=== PATIENT | male | born 1980 | race Caucasian/White ===

== ENCOUNTER 2020-05-13 18:08 | Emergency (ER) | payer MEDICAID, SELFPAY ==
--- NOTE | ~2020-05-13 | CT_ITS ---
EXAMINATION: CT pelvis w con EXAM DATE: 05/13/2020 20:49 INDICATION: Abscess right upper buttock. Mass. TECHNIQUE: Spiral CT pelvis w con was performed following intravenous injection of 100 mL Omnipaque 3 50. Axial, coronal and sagittal images were reviewed. The dose-length product (DLP) for this examin ation was 251.04 mGy-cm. The exposure was tailored according to patient size (auto mA exposure contr ol), and iterative reconstruction (ASIR) was used as additional dose reduction technique. There is n o prior study for comparison. FINDINGS: In the right buttock subcutaneous fat there is masslike region measuring 4 x 6 cm, 40 Houns field units which could be either proteinaceous fluid or solid. If patient has infection clinically, consider bedside aspiration (this should not need any specific imaging guidance). If not, recommend u ltrasound to distinguish solid from cystic and determine whether biopsy is indicated. Visualized bowel is unremarkable. Prostate and bladder are unremarkable. No pelvic lymphadenopathy. IMPRESSION: Right posterior buttock subcutaneous mass like region, could be proteinaceous fluid or s olid. Reviewed, dictated and finalized at location A. IMPRESSION: Right posterior buttock subcutaneous mass like region, could be pr oteinaceous fluid or solid.
[2020-05-13 18:10] VITALS: BP 155/123; PULSE 102; RESP 18; TEMP 36.4; O2SAT 100
--- NOTE | 2020-05-13 19:03 | ED.SKABFB ---
HPI - Skin/Abscess/Foreign Bdy General Chief complaint: Skin/Abscess/Foreign Body Stated complaint: wound Time Seen by Provider: 05/13/20 19:03 History of Present Illness HPI narrative: Right gluteal mass for more than 1 year. Started as a small bump. He attempted to drain it, but did not get anything out. Since that time it has increased in size and has a chronic wound overlying the top. It is only mildy painful. No fever, chills, nausea, vomiting. Related Data Home Medications Medication Instructions Recorded Confirmed ibuprofen [Advil] 400 mg PO Q6H PRN 05/18/20 05/20/20 Allergies Allergy/AdvReac Type Severity Reaction Status Date / Time codeine Allergy Intermediate Swelling Verified 05/18/20 18:06 Review of Systems Review of Systems: All systems reviewed & are unremarkable except as noted in HPI and below Constitutional: Constitutional: Denies chills, Denies fever(s) and Denies weakness Cardiovascular: Cardiovascular: Denies chest pain Respiratory: Respiratory: Denies dyspnea Gastrointestinal: Gastrointestinal: Denies abdominal pain, Denies nausea and Denies vomiting Genitourinary: Genitourinary: Reports no additional male genitourinary complaints Musculoskeletal: Musculoskeletal: Denies back pain Neurologic: Reports system reviewed and no additional complaints, except as documented [facility] Surgical History Surgical History History of forearm fracture with repair an reconstruction Family History Family History Father No problems noted. Mother CKD (chronic kidney disease) Grandparent Diabetes mellitus Heart disease Hypertension Cerebrovascular accident Social History Social History Smoking packs per day: 1 Smoking cigarettes per day: 20.0 Years smoked: 15 Smoking pack-years: 15.00 Smoking status: Current every day smoker Tobacco type: cigarettes Second hand tobacco smoke exposure: Yes Alcohol intake: former Drinks per week: 42 (patient states 3 tall boys per day ) Substance use: current Substance use type: marijuana Other substance usage details: daily marijuana smoker 3 joints a day Spiritual care concerns: No Exam Const: General: healthy appearing, no acute distress and alert Orientation/consciousness: patient oriented x3 HENMT: Head: normal to inspection Neck: Neck: normal visual inspection Chest: Chest palpation & inspection: no tenderness Resp: Effort & Inspection: normal respiratory effort Auscultation: clear to auscultation bilaterally, no rales, no rhonchi and no wheezes Cardio: Jugular venous distension: no JVD Rate: regular rate Rhythm: regular rhythm Heart sounds: no murmurs GI: GI Palp: Yes Soft to palpation and No Tenderness to palpation present (GI) Skin: Other: 6 cm nearly half spherical mass on superior portion of right buttock. firm chronic appearing wound over the top with abnormal appearance particularly at the borders. The mass feels fluctuant around the edges. Neuro: General: patient oriented x3 and moves all extremities Speech: normal speech Extrem: General: no edema Psych: Appearance: well kempt Affect: normal affect Course Vital Signs Vital signs: Vital Signs Temperature 36.4 C 05/13/20 18:10 Pulse Rate 102 H 05/13/20 18:10 Respiratory Rate 18 05/13/20 18:10 Blood Pressure 155/123 H 05/13/20 18:10 Pulse Oximetry 100 05/13/20 18:10 Temperature 37.2 C 05/14/20 00:05 Pulse Rate 83 05/14/20 00:05 Respiratory Rate 24 H 05/14/20 00:05 Blood Pressure 109/67 05/14/20 00:05 Pulse Oximetry 100 05/14/20 00:05 MDM - Skin/Abscess/Foreign Bdy MDM Narrative Medical decision making narrative: CT indeterminate. Case discussed with Dr. Charles. He did not think that it would do any harm to attempt I&D. It was incised
[2020-05-13 20:11] LABS: Basophils Absolute Auto 0.1 K/mm3 (0.0-0.1); Basophils Percent Auto 0.7 % (0.2-1.2); Eosinophils Absolute Auto 0.1 K/mm3 (0-0.3); Eosinophils Percent Auto 0.8 % (0-4.4); Hematocrit 47.6 % (42.0-52.0); Hemoglobin 16.4 g/dL (14.0-18.0); Immature Granulocyte Absolute 0.04 K/mm3 (0.00-0.031); Immature Granulocyte Percent A 0.6 % (0-0.5); Lymphocytes Absolute Auto 1.55 K/mm3 (0.9-3.2); Lymphocytes Percent Auto 21.7 % (18.3-44.2); Mean Corpuscular HGB Conc 34.5 g/dl (32-36); Mean Corpuscular Hemoglobin 32.3 pg (26-34); Mean Corpuscular Volume 93.9 fl (80-100); Mean Platelet Volume 9.9 fl (7.4-10.4); Monocytes Absolute Auto 0.9 K/mm3 (0.1-0.6); Neutrophils Absolute Auto 4.6 K/mm3 (1.3-6.7); Neutrophils Percent Auto 64.2 % (45.5-73.1); Platelet Count Result 233 k/mm3 (150-375); Red Blood Count 5.07 M/mm3 (4.6-6.20); Red Cell Distribution Width 13.2 % (11.5-14.5); White Blood Count 7.2 K/mm3 (4.5-10.0)
[2020-05-13 20:29] LABS: Anion Gap 6 mmol/L (8-16); Blood Urea Nitrogen 13 mg/dL (9-20); Calcium 8.9 mg/dL (8.4-10.2); Carbon Dioxide 29 mmol/L (22-30); Chloride 103 mmol/L (98-107); Estimated CRCL calculation 88 ml/min; Estimated Glomerular Filt Rate > 60; Glucose 106 mg/dL (75-110); Potassium 4.3 mmol/L (3.4-5.0); Sodium 138 mmol/L (137-145)
[2020-05-13 22:03] VITALS: BP 112/69; PULSE 91; RESP 17; O2SAT 98
[2020-05-14 00:05] VITALS: BP 109/67; PULSE 83; RESP 24; TEMP 37.2; O2SAT 100
== END 2020-05-14 00:07 | disposition home or self-care (01) ==
PROVIDERS: Emergency Provider Emergency Medicine
DX: R22.2 Localized swelling, mass and lump, trunk (principal); F17.210 Nicotine dependence, cigarettes, uncomplicated
CPT/HCPCS: 10060; 36415; 72193; 80048; 85025; 99284; Q9967

== ENCOUNTER → 2020-05-19 00:07 | Outpatient (CLI) | payer MEDICAID, SELFPAY ==
[2020-05-19 18:31] LABS: SARS-CoV-2 RNA PCR Negative
== END ==
PROVIDERS: Visit Provider Surgery
DX: Z01.812 Encounter for preprocedural laboratory examination (principal); Z20.822 Contact with and (suspected) exposure to COVID-19
CPT/HCPCS: C9803; U0003; U0005

== ENCOUNTER 2020-05-21 02:11 | Day surgery (SDC) | payer MEDICAID, SELFPAY ==
[2020-05-18 18:14] VITALS: BMI 25.5
[2020-05-21 08:43] VITALS: BP 131/86; PULSE 112; RESP 18; TEMP 36.5; O2SAT 97
[2020-05-21] MEDS: LACTATED RINGERS 1,000 ML 30 ML IV CONT (08:57)
--- NOTE | 2020-05-21 09:04 | WPDANESEPPF ---
Anes - Initial Pre Proc Eval Procedure: Operation Date: 05/21/20 10:30 Proposed Procedures p Incisional Biopsy Of Right Buttock Mass - Ilan Charles MD Date/Time: 05/21/20 09:04 Surgeon: Ilan Charles MD Pre Op Diagnosis: Right Buttock Mass Patient Data Age: 39 Gender: M Height: 5 ft 9 in Weight: 78.47 kg Allergies Allergy/AdvReac Type Severity Reaction Status Date / Time codeine Allergy Intermediate Swelling Verified 05/18/20 18:06 Home Medications Medication Instructions Recorded Confirmed Type ibuprofen [Advil] 400 mg PO Q6H PRN 05/18/20 05/20/20 History Patient hx anesthesia problems: none Family hx anesthesia problems: none PMFSH Past Medical History Medical History Polysubstance (excluding opioids) dependence Surgical History Surgical History History of forearm fracture with repair an reconstruction Family History Family History Father No problems noted. Mother CKD (chronic kidney disease) Grandparent Diabetes mellitus Heart disease Hypertension Cerebrovascular accident Social History Social History Smoking packs per day: 1 Smoking cigarettes per day: 20.0 Years smoked: 15 Smoking pack-years: 15.00 Smoking status: Current every day smoker Tobacco type: cigarettes Second hand tobacco smoke exposure: Yes Alcohol intake: former Drinks per week: 42 (patient states 3 tall boys per day ) Alcohol use details: quit 2 weeks ago per patient Substance use: current Substance use type: marijuana Other substance usage details: daily marijuana smoker 3 joints a day Living arrangements: with roommate(s) Spiritual care concerns: No Anes - Eval Final PreProcedure Day of Procedure 05/21/20 09:04 Patient weight: normal Heart: regular rate and rhythm Lungs: decreased breath sounds Airway: Mallampati scale class 1 Neurological: other (alert) Last oral intake: >/= 8 hours ASA classification: III Emergent: no Anesthetic plan: proceed Anesthesia type and monitoring: general GIVS and standard monitoring Informed Consent: The patient's anesthetic plan and its attendant risks and benefits were discussed with the patient/family/POA. Questions were solicited and answers provided to the satisfaction of the patient/family/POA.
--- NOTE | 2020-05-21 09:59 | WPDHPUPDATE1 ---
History and Physical Update Update Date/Time: 05/21/20 09:59 History and Physical has been reviewed, including an updated exam of the patient. There are NO changes in the patient's condition. Risks, benefits, and alternatives have been discussed and questions answered. Patient agrees to proceed with procedure.
[2020-05-21] MEDS: BUPIVACAINE/EPINEPHRINE 0.5% 30 ML VIAL 4 ML INFILTRATE (10:32)
[2020-05-21] MEDS: HEMOSTATIC MATRIX (SURGIFLO with THROMBIN) KIT 1 KIT XX (10:40)
[2020-05-21 10:51] VITALS: BP 118/74; PULSE 99; RESP 14; O2SAT 99
--- NOTE | 2020-05-21 11:08 | P.OP_ITS ---
Procedure Note - Detailed Date of procedure: 05/21/20 Pre-op diagnosis: Right Buttock Mass Right buttocks mass Post-op diagnosis: same Procedure performed: Incisional biopsy right buttocks mass Description of procedure: The patient was taken to surgery and IV sedation was administered. He was placed in left lateral decubitus position so that the right upper buttocks was exposed. Prep and drape was carried out. Local anesthetic was infiltrated in the area of the mass predominantly on the inferior and lateral aspect. A good wedge of the tissue was excised and sent to pathology. I then attempted to take some cores of tissue with the Elder-Cut needle biopsy instrument. The tissue was too necrotic to give a reasonable core. I then went ahead and excise some additional tissue so that about half of the tumor that had eroded through the skin had been biopsied. I included some of the skin as well. This was sent to pathology in formalin. I then use some cautery on the wound but this was ineffective. There was still some venous oozing. I tried Surgicel next but it was also ineffective. I then used the Surgiflo which was much more effective. A couple of small bleeding areas persisted and I covered these with Surgicel. Hemostasis was then achieved. The wound was then dressed with Xeroform gauze and bulky fluffs as well as ABDs. Medipore tape was used. The patient was returned to a supine position awakened and taken to outpatient surgery in good condition. Sponge and needle counts were correct x2. Anesthesia: MAC and local (0.5% Marcaine with epinephrine) Surgeon: Ilan Charles MD Strategic Account Executive: Krysta ROYAL Estimated blood loss (mL): 30 Drains: No Packing: No Pathology: yes (Incisional biopsy of soft tissue tumor) Complications: None Condition: stable Disposition: same day Findings: Necrotic tumor very suspicious for soft tissue malignancy, appears to have eroded through the skin of the upper right buttocks.
[2020-05-21 11:30] VITALS: BP 121/80; PULSE 92; RESP 14
== END 2020-05-21 11:57 | disposition home or self-care (01) ==
PROVIDERS: Visit Provider Surgery
PROC: (CPT 21920; principal; 2020-05-21 10:30)
DX: C43.59 Malignant melanoma of other part of trunk (principal); F17.210 Nicotine dependence, cigarettes, uncomplicated
CPT/HCPCS: 21920; 81210; 88305; 88342; 88381; J2250; J2704; J3010; J7120

== ENCOUNTER → 2020-06-02 00:35 | Outpatient (CLI) | payer MEDICAID, SELFPAY ==
[2020-06-02 20:45] LABS: SARS-CoV-2 RNA PCR Negative
== END ==
PROVIDERS: Visit Provider Surgery Plastic and Reconstructive Surgery
DX: Z01.812 Encounter for preprocedural laboratory examination (principal); Z20.822 Contact with and (suspected) exposure to COVID-19
CPT/HCPCS: C9803; U0003; U0005

== ENCOUNTER 2020-06-04 11:59 | Outpatient (CLI) | payer MEDICAID, SELFPAY ==
--- NOTE | ~2020-06-04 | PE_ITS ---
EXAMINATION: PET skull to mid thigh DATE: 06/04/2020 14:07 INDICATION: Melanoma of the right buttock TECHNIQUE: Blood glucose level was 95 mg/dL. 10.61 mCi of 18-fluorodeoxyglucose (18-FDG) was administ ered i.v. Low dose computed tomography (CT) images were acquired from the top of the skull to the pro ximal thighs for attenuation correction and anatomic localization. Positron emission tomography (PET) images were acquired in the same distribution beginning 59 minutes after injection. The dose-length product (DLP) was 550.54 mGy-cm. COMPARISON: CT, 05/13/2020 FINDINGS: Head/neck: No abnormal FDG uptake is identified. Uptake in the tonsils without suspicious CT correlat e is likely physiologic. Chest: No abnormal FDG uptake is identified. There is mild dependent atelectasis. No pleural effusion or pneumothorax is identified. No pathologically enlarged thoracic lymph nodes are identified. The h eart size is normal. Bilateral gynecomastia is noted. Abdomen/pelvis/proximal thighs: There is a 6.5 x 4.1 cm soft tissue mass in the right gluteal soft ti ssues with abnormal FDG uptake and SUV max of 18.5. There is a 5.4 x 4.5 cm soft tissue mass in the r ight upper quadrant which abuts, and possibly invades, the mid transverse colon. The mass demonstrate s abnormal FDG uptake with an SUV max of 17.0. The liver, spleen, pancreas, gallbladder, and adrenal glands are normal. Physiologic FDG activity is present in the bowel and urinary tract. There are no d ilated loops of bowel. No free intraperitoneal gas is identified. There is a normal-sized right ingui nal lymph node with low-level FDG uptake and SUV max of 2.7 (image [id number]). Musculoskeletal: No abnormal FDG uptake is identified. IMPRESSION: 1. Right gluteal soft tissue mass with abnormal FDG uptake, consistent with patient's known melanoma. 2. Right upper quadrant soft tissue mass abutting, and possibly invading, the mid transverse colon, c onsistent with metastatic disease. 3. Normal sized right inguinal lymph node with low-level FDG uptake, possibly metastatic disease. Reviewed, dictated and finalized at location B. IMPRESSION: 1. Right gluteal soft tissue mass with abnormal FDG uptake, consistent with pat ient's known melanoma. 2. Right upper quadrant soft tissue mass abutting, and possibly invading, the m id transverse colon, consistent with metastatic disease. 3. Normal sized right inguinal lymph node with low-level FDG uptake, possibly m etastatic disease.
[2020-06-04 12:29] LABS: Glucose Point of Care 95 (65-105)
== END 2020-06-04 12:00 | disposition home or self-care (01) ==
PROVIDERS: Visit Provider Internal Medicine Hematology & Oncology
DX: C43.71 Malignant melanoma of right lower limb, including hip (principal)
CPT/HCPCS: 78815; 82948; A9552

== ENCOUNTER 2020-06-05 01:14 | Day surgery (SDC) | payer MEDICAID, SELFPAY ==
[2020-05-27 15:35] VITALS: BMI 25.5
[2020-06-05] VITALS (8 sets, daily range): BP systolic 103–147; BP diastolic 66–99; PULSE 60–140; RESP 12–20; TEMP 35.9–36.2; O2SAT 99–100
--- NOTE | ~2020-06-05 | NM_ITS ---
EXAMINATION: NM sentinel node w imaging EXAM DATE: 06/05/2020 12:40 INDICATION: Malignant melanoma buttock. TECHNIQUE: 0.576 mCi Tc-99m Lymphoseek was injected medial and lateral to a right buttock mass. Plana r frontal images were acquired after approximately half an hour. Initial image was not acquired, sheng ent did not wish to lay on his back. FINDINGS: There are 3 foci of activity on the images. 2 of these are the injection sites and the 3rd the sentinel lymph node. The medial focus demonstrate progressive increased activity on time, probab ly the [place] node in the right inguinal region, was marked by a technologist. IMPRESSION: [place] lymph node marked for surgery. Reviewed, dictated and finalized at location A.
--- NOTE | 2020-06-05 12:43 | SUR.PREOP ---
1143 PT TO NUCLEAR MEDICINE PER W/C. 1235 PT RETURNED FROM NUCLEAR MEDICINE PER W/C.
--- NOTE | 2020-06-05 12:50 | WPDANESEPPF ---
Anes - Initial Pre Proc Eval Procedure: Operation Date: 06/05/20 13:00 Proposed Procedures p Excision Melanoma Right Buttocks with [place] Lymph Node Biopsy, - David Graham MD s Possible Split Thickness Skin Graft, Possible Complex Closure, Possible Adjacent Tissue Transfer - David Graham MD Date/Time: 06/05/20 12:50 Surgeon: David Graham MD Pre Op Diagnosis: malignant melanoma buttocks Patient Data Age: 39 Gender: M Height: 5 ft 9 in Weight: 75.2 kg Last Vital Signs Temp 35.9 C L 06/05/20 11:39 Pulse 140 H 06/05/20 11:39 Resp 18 06/05/20 11:39 BP 140/97 H 06/05/20 11:39 Pulse Ox 100 06/05/20 11:39 Allergies Allergy/AdvReac Type Severity Reaction Status Date / Time codeine Allergy Intermediate Swelling Verified 06/05/20 11:57 Home Medications Medication Instructions Recorded Confirmed Type ibuprofen 600 mg tablet 600 mg PO Q6H PRN #14 tablet 06/03/20 06/05/20 Rx oxycodone-acetaminophen 5 mg-325 0.5 - 1 tablet PO Q6H PRN #10 06/03/20 06/05/20 Rx mg tablet tablet Patient hx anesthesia problems: none Family hx anesthesia problems: none PMFSH Past Medical History Medical History Polysubstance (excluding opioids) dependence Surgical History Surgical History History of forearm fracture with repair an reconstruction Family History Family History Father No problems noted. Mother CKD (chronic kidney disease) Grandparent Diabetes mellitus Heart disease Hypertension Cerebrovascular accident Social History Social History Smoking packs per day: 1 Smoking cigarettes per day: 20.0 Years smoked: 15 Smoking pack-years: 15.00 Smoking status: Current every day smoker Tobacco type: cigarettes Alcohol intake: former Drinks per week: 42 Alcohol use details: PT STATES HE QUIT DRINKING 3 WEEKS AGO Substance use: current Substance use type: marijuana Other substance usage details: daily marijuana smoker 3 joints a day Living arrangements: with roommate(s) Spiritual care concerns: No Anes - Eval Final PreProcedure Day of Procedure 06/05/20 12:50 Patient weight: normal Heart: regular rate and rhythm Lungs: clear to auscultation Airway: Mallampati scale class 1 Neurological: alert and oriented Last oral intake: >/= 8 hours ASA classification: III Emergent: no Anesthetic plan: proceed Anesthesia type and monitoring: general ETT and standard monitoring Informed Consent: The patient's anesthetic plan and its attendant risks and benefits were discussed with the patient/family/POA. Questions were solicited and answers provided to the satisfaction of the patient/family/POA.
--- NOTE | 2020-06-05 13:11 | WPDHPUPDATE1 ---
History and Physical Update Update Date/Time: 06/05/20 13:11 History and Physical has been reviewed, including an updated exam of the patient. There are NO changes in the patient's condition. Risks, benefits, and alternatives have been discussed and questions answered. Patient agrees to proceed with procedure.
[2020-06-05] MEDS: ceFAZolin 2 GM/D5W 50 ML 2 GM/50 ML BAG IVPB (13:17)
[2020-06-05] MEDS: LIDO 1%/EPINEPHRINE 1:100,000 50 ML VIAL 40 ML INFILTRATE (14:43)
--- NOTE | 2020-06-05 15:05 | PM.PROC ---
Procedure Note - Detailed Date of procedure: 06/05/20 Pre-op diagnosis: malignant melanoma buttocks Post-op diagnosis: same Procedure performed: 1. Wide excision right gluteal melanoma 13cm 2. Intermediate closure right gluteal melanoma 13cm 3. Attempted right inguinal sentinal node biopsy. Description of procedure: Preoperatively the patient went to radiology. He was injected with radionucleotide. A sentinel node was identified. Risks, benefits, alternatives were discussed with him and his significant other. I want them to be very realistic about the risks involved as well as expectations. Discussed the grave nature of this diagnosis. Discussed all options. Discussed aftercare. Answered all of their questions to their satisfaction. Consent obtained. They voiced understanding. He was taken to the operating room. He was supine on the operating table. Anesthesia provided by anesthesiology and prepped and draped in standard sterile fashion. Surgical time-out was taken. I used the radionucleotide probe to identify the location. 1% lidocaine and 0.25% Marcaine with epinephrine was used anesthetize locally. A 15 blade used to make an incision. Dissection was continued down following the counter until the fascia was identified. It was clear this was a intra-abdominal node that was identified. No other node was identified so I closed using 2-0 Vicryl followed by 3-0 Monocryl in a running subcuticular 4-0 Monocryl and tissue glue. Dressing was placed. Patient was then placed supine. Care was taken to protect patient from pressure injury. Prepped and draped in standard sterile fashion. The lesion was marked out with about 3 cm margins. 1% lidocaine and 0.25% Marcaine with epinephrine was used anesthetize locally. Ten blade used to make an incision. Dissection was continued down to the muscle fascia and I was elevated at the level of muscle fascia given his preoperative CT scan findings. I did tara the mass at 12:00 p.m. with a single suture. Once removed I copiously irrigated with saline solution. This was 13 cm. I did not undermine. We closed in many layers to obliterate all space with 2-0 Vicryl followed by 3-0 Monocryl and vertical mattress 3-0 nylon. Total closure was 13 cm. Dressing was placed. He was woken taken the PACU without difficulty. All instrument sponge counts were correct at the end of the case. Anesthesia: GETA Surgeon: David Graham MD Estimated blood loss (mL): 20 Drains: No Packing: No Pathology: yes (Right gluteal melanoma) Complications: No immediate complications Condition: stable Disposition: PACU Findings: Attempted sentinel node. Node was intra-abdominal. No sentinel node sent. Excised with 3 cm margin. This was to the level gluteal fascia. This appeared to have a clear margin on resection grossly.
[2020-06-05] MEDS: LACTATED RINGERS 1,000 ML 30 ML IV CONT (15:06)
[2020-06-05] MEDS: oxyCODONE/ACETAMINOPHEN (*CRX) 5-325 MG TABLET 1 TABLET PO (16:14)
== END 2020-06-05 16:45 | disposition home or self-care (01) ==
PROVIDERS: Visit Provider Surgery Plastic and Reconstructive Surgery
PROC: (CPT 11606; principal; 2020-06-05 13:00)
DX: C43.59 Malignant melanoma of other part of trunk (principal); F17.210 Nicotine dependence, cigarettes, uncomplicated; F19.20 Other psychoactive substance dependence, uncomplicated; F12.90 Cannabis use, unspecified, uncomplicated
CPT/HCPCS: 11606; 12035; 38531; 78195; 88305; A9270; A9520; J0171; J0690; J2250; J2405; J2704; J3010; J7120

== ENCOUNTER → 2020-06-13 06:56 | Outpatient (CLI) | payer MEDICAID, SELFPAY ==
[2020-06-13 20:54] LABS: SARS-CoV-2 RNA PCR Negative
== END ==
PROVIDERS: Visit Provider Internal Medicine Gastroenterology
DX: Z01.812 Encounter for preprocedural laboratory examination (principal); Z20.822 Contact with and (suspected) exposure to COVID-19
CPT/HCPCS: C9803; U0003; U0005

== ENCOUNTER 2020-06-17 00:57 | Day surgery (SDC) | payer MEDICAID, SELFPAY ==
[2020-06-12 14:35] VITALS: BMI 24.5
[2020-06-17 09:20] VITALS: BP 132/95; PULSE 100; RESP 18; TEMP 36.2; O2SAT 100
[2020-06-17] MEDS: LACTATED RINGERS 1,000 ML 150 ML IV CONT (09:42)
--- NOTE | 2020-06-17 09:53 | WPDANESEPPF ---
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 Patient Data Age: 39 Gender: M Height: 5 ft 9 in Weight: 73.8 kg Last Vital Signs Temp 97.1 F L 06/17/20 09:20 Pulse 100 06/17/20 09:20 Resp 18 06/17/20 09:20 BP 132/95 H 06/17/20 09:20 Pulse Ox 100 06/17/20 09:20 Allergies Allergy/AdvReac Type Severity Reaction Status Date / Time codeine Allergy Intermediate Swelling Verified 06/17/20 09:19 Home Medications Medication Instructions Recorded Confirmed Type oxycodone-acetaminophen 5 mg-325 0.5 - 1 tablet PO Q6H PRN #10 06/08/20 06/12/20 Rx mg tablet tablet zolpidem [Ambien] 5 mg PO HS PRN 06/10/20 06/12/20 History ibuprofen 600 mg tablet See Rx Instructions .ROUTE 06/16/20 06/17/20 Rx .COMPLEX #14 tablet Patient hx anesthesia problems: none Family hx anesthesia problems: none PMFSH Past Medical History Medical History Polysubstance (excluding opioids) dependence Surgical History Surgical History History of forearm fracture with repair an reconstruction Family History Family History Father No problems noted. Mother CKD (chronic kidney disease) Grandparent Diabetes mellitus Heart disease Hypertension Cerebrovascular accident Social History Social History Smoking packs per day: 1 Smoking cigarettes per day: 20.0 Years smoked: 15 Smoking pack-years: 15.00 Smoking status: Current every day smoker Tobacco type: cigarettes Alcohol intake: former Drinks per week: 42 Substance use: current Substance use type: marijuana Other substance usage details: every day Living arrangements: with family Gender identity (if verbalized by the patient): Male Spiritual care concerns: No Anes - Eval Final PreProcedure Day of Procedure 06/17/20 09:53 Patient weight: overweight Heart: regular rate and rhythm Lungs: clear to auscultation Airway: Mallampati scale class II Neurological: alert and oriented Last oral intake: >/= 8 hours ASA classification: III Emergent: no Anesthetic plan: proceed Anesthesia type and monitoring: general GIVS and standard monitoring Informed Consent: The patient's anesthetic plan and its attendant risks and benefits were discussed with the patient/family/POA. Questions were solicited and answers provided to the satisfaction of the patient/family/POA.
--- NOTE | 2020-06-17 10:20 | P.HP_ITS ---
History of Present Illness History of Present Illness Consent: Risks, benefits, and alternatives have been discussed and questions answered. Patient agrees to proceed with procedure. Chief complaint: malginant melanoma of digestive organs Narrative: Wang Giraldo is a 39 year old male referred because of an abnormal imaging scan. The PET scan showed what appears to be of malignant melanoma abutting or invading the transverse colon. He has already had resect ion of a melanoma from his buttocks Review of Systems Review of Systems: All systems reviewed & are unremarkable except as noted in HPI and below PMFSH Past Medical History Medical History Polysubstance (excluding opioids) dependence Surgical History Surgical History History of forearm fracture with repair an reconstruction Family History Family History Father No problems noted. Mother CKD (chronic kidney disease) Grandparent Diabetes mellitus Heart disease Hypertension Cerebrovascular accident Social History Social History Smoking packs per day: 1 Smoking cigarettes per day: 20.0 Years smoked: 15 Smoking pack-years: 15.00 Smoking status: Current every day smoker Tobacco type: cigarettes Alcohol intake: former Drinks per week: 42 Substance use: current Substance use type: marijuana Other substance usage details: every day Living arrangements: with family Gender identity (if verbalized by the patient): Male Spiritual care concerns: No Meds Home Medications and Allergies Home Medications Medication Instructions Recorded Confirmed Type oxycodone-acetaminophen 5 mg-325 0.5 - 1 tablet PO Q6H PRN #10 06/08/20 06/12/20 Rx mg tablet tablet zolpidem [Ambien] 5 mg PO HS PRN 06/10/20 06/12/20 History ibuprofen 600 mg tablet See Rx Instructions .ROUTE 06/16/20 06/17/20 Rx .COMPLEX #14 tablet Allergies Allergy/AdvReac Type Severity Reaction Status Date / Time codeine Allergy Intermediate Swelling Verified 06/17/20 09:19 Vital Signs Vital Signs - 24 hr 06/17/20 09:20 Temperature 36.2 C L Pulse Rate 100 Respiratory Rate 18 Blood Pressure 132/95 H Pulse Oximetry 100 Exam Resp: Auscultation: clear to auscultation bilaterally Cardio: Rate: regular rate Rhythm: regular rhythm GI: GI Palp: Yes Soft to palpation and No Tenderness to palpation present (GI) Assessment and Plan Assessment and plan (1) 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
[2020-06-17 10:43] VITALS: BP 120/77; PULSE 80; RESP 22; O2SAT 98
[2020-06-17 10:53] VITALS: BP 122/79; PULSE 68; RESP 19; O2SAT 100
[2020-06-17 11:03] VITALS: BP 125/84; PULSE 71; RESP 23; O2SAT 100
== END 2020-06-17 11:24 | disposition home or self-care (01) ==
PROVIDERS: Referring Provider Surgery; Visit Provider Internal Medicine Gastroenterology
PROC: 0DJD8ZZ Inspection of Lower Intestinal Tract, Via Natural or Artificial Opening Endoscopic (ICD-10-PCS; CPT 45378; principal; 2020-06-17 10:30)
DX: D12.5 Benign neoplasm of sigmoid colon (principal); C78.89 Secondary malignant neoplasm of other digestive organs; Z85.820 Personal history of malignant melanoma of skin; K59.00 Constipation, unspecified; F17.210 Nicotine dependence, cigarettes, uncomplicated
CPT/HCPCS: 45385; 88305; J2704; J7120

== ENCOUNTER 2020-06-19 07:26 | Outpatient (RCR) | payer MEDICAID, SELFPAY ==
[2020-06-10 15:34] VITALS: BMI 24.5
== END 2020-07-29 10:41 | disposition home or self-care (01) ==
LOC: ANHWOC 07:26
PROVIDERS: Visit Provider Surgery Plastic and Reconstructive Surgery
DX: Z48.817 Encounter for surgical aftercare following surgery on the skin and subcutaneous tissue (principal)
CPT/HCPCS: 99212; A9270; G0463

== ENCOUNTER 2020-07-01 14:09 | Outpatient (CLI) | payer MEDICAID, SELFPAY ==
[2020-07-01 14:30] LABS: Basophils Absolute Auto 0.1 K/mm3 (0.0-0.1); Basophils Percent Auto 0.7 % (0.2-1.2); Eosinophils Absolute Auto 0.1 K/mm3 (0-0.3); Hemoglobin 15.2 g/dL (14.0-18.0); Immature Granulocyte Absolute 0.02 K/mm3 (0.00-0.031); Immature Granulocyte Percent A 0.3 % (0-0.5); Lymphocytes Absolute Auto 1.41 K/mm3 (0.9-3.2); Lymphocytes Percent Auto 20.6 % (18.3-44.2); Mean Corpuscular HGB Conc 34.5 g/dl (32-36); Mean Corpuscular Volume 92.6 fl (80-100); Mean Platelet Volume 9.9 fl (7.4-10.4); Monocytes Absolute Auto 0.8 K/mm3 (0.1-0.6); Monocytes Percent Auto 12.1 % (2.6-8.5); Neutrophils Absolute Auto 4.5 K/mm3 (1.3-6.7); Neutrophils Percent Auto 65.3 % (45.5-73.1); Platelet Count Result 228 k/mm3 (150-375); Red Blood Count 4.75 M/mm3 (4.6-6.20); Red Cell Distribution Width 12.7 % (11.5-14.5); White Blood Count 6.9 K/mm3 (4.5-10.0)
[2020-07-01 14:41] LABS: Anion Gap 8 mmol/L (8-16); Blood Urea Nitrogen 11 mg/dL (9-20); Calcium 9.8 mg/dL (8.4-10.2); Carbon Dioxide 28 mmol/L (22-30); Chloride 105 mmol/L (98-107); Estimated Glomerular Filt Rate > 60; Glucose 94 mg/dL (75-110); Potassium 3.3 mmol/L (3.4-5.0); Sodium 141 mmol/L (137-145)
[2020-07-01 15:10] LABS: Carcinoembryonic Antigen 2.7 ng/mL (0.0-3.0)
== END 2020-07-01 14:10 | disposition home or self-care (01) ==
LOC: ANHSURGERY 14:16
PROVIDERS: Visit Provider Surgery
DX: Z01.812 Encounter for preprocedural laboratory examination (principal); K63.89 Other specified diseases of intestine; C43.59 Malignant melanoma of other part of trunk
CPT/HCPCS: 36415; 80048; 82378; 85025; 86850; 86900; 86901

== ENCOUNTER → 2020-07-04 01:13 | Outpatient (CLI) | payer MEDICAID, SELFPAY ==
[2020-07-04 19:43] LABS: SARS-CoV-2 RNA PCR Negative
== END ==
PROVIDERS: Visit Provider Surgery
DX: Z01.812 Encounter for preprocedural laboratory examination (principal); Z20.822 Contact with and (suspected) exposure to COVID-19
CPT/HCPCS: C9803; U0003; U0005

== ENCOUNTER 2020-07-06 19:53 | Inpatient (IN) | payer MEDICAID, SELFPAY ==
--- NOTE | ~2020-07-06 | XR_ITS ---
EXAMINATION: XR chest 1V portable INDICATION: Shortness of breath TECHNIQUE: Portable AP chest at 2058 hours COMPARISON: None available FINDINGS: The lungs are free of acute opacities. There is no pleural effusion or pneumothorax. The ca rdiomediastinal silhouette is normal. IMPRESSION: 1. No acute cardiopulmonary abnormality. Reviewed, dictated and finalized at location A.
--- NOTE | ~2020-07-06 | CT_ITS ---
EXAMINATION: CT abdomen pelvis w con INDICATION: Lower abdominal pain TECHNIQUE: Computed tomographic images of the abdomen and pelvis were obtained after the administrati on of 100 cc of Omnipaque 350 intravenous contrast. The dose-length product (DLP) was 691.77 mGy-cm. Automated exposure control and iterative reconstruction technique were employed. COMPARISON: 06/04/2020 FINDINGS: The lung bases are clear. The heart size is normal. The liver, spleen, pancreas, gallbladde r, and adrenal glands are normal. Cysts of the kidneys measure up to 9 mm on the right. There is a 6. 6 x 4.9 cm mass of the upper abdomen abutting the mid transverse colon. There are now foci of gas wit hin the mass. There is a small volume of ascites in the pelvis. There has been interval resection of the previously described right gluteal soft tissue mass. No pathologically enlarged abdominal or pelv ic lymph nodes are identified. There are no dilated loops of bowel. IMPRESSION: 1. Enlarging epigastric mass involving the transverse colon now containing foci of gas, concerning fo r erosion into the lumen of the colon. Surgical evaluation is recommended. Reviewed, dictated and finalized at location A. IMPRESSION: 1. Enlarging epigastric mass involving the transverse colon now containing foci of gas, concerning for erosion into the lumen of the colon. Surgical evaluatio n is recommended.
[2020-07-06 19:56] VITALS: BP 80/21; PULSE 95; RESP 18; TEMP 35.6; O2SAT 98
[2020-07-06 20:15] LABS: Basophils Absolute Auto 0.1 K/mm3 (0.0-0.1); Basophils Percent Auto 0.3 % (0.2-1.2); Eosinophils Absolute Auto 0.1 K/mm3 (0-0.3); Eosinophils Percent Auto 0.5 % (0-4.4); Hematocrit 42.9 % (42.0-52.0); Hemoglobin 14.9 g/dL (14.0-18.0); Immature Granulocyte Absolute 0.05 K/mm3 (0.00-0.031); Immature Granulocyte Percent A 0.3 % (0-0.5); Lymphocytes Absolute Auto 1.54 K/mm3 (0.9-3.2); Mean Corpuscular HGB Conc 34.7 g/dl (32-36); Mean Corpuscular Hemoglobin 32.3 pg (26-34); Mean Corpuscular Volume 92.9 fl (80-100); Mean Platelet Volume 10.1 fl (7.4-10.4); Monocytes Absolute Auto 1.9 K/mm3 (0.1-0.6); Monocytes Percent Auto 12.3 % (2.6-8.5); Neutrophils Absolute Auto 11.8 K/mm3 (1.3-6.7); Neutrophils Percent Auto 76.6 % (45.5-73.1); Platelet Count Result 242 k/mm3 (150-375); Red Blood Count 4.62 M/mm3 (4.6-6.20); Red Cell Distribution Width 12.8 % (11.5-14.5); White Blood Count 15.4 K/mm3 (4.5-10.0)
[2020-07-06 20:26] LABS: Alanine Aminotransferase 24 U/L (4-50); Albumin Level 4.1 g/dL (3.5-5.1); Alkaline Phosphatase 68 U/L (38-126); Anion Gap 6 mmol/L (8-16); Aspartate Amino Transferase 22 U/L (17-59); Bilirubin,Total 0.6 mg/dL (0.2-1.3); Blood Urea Nitrogen 14 mg/dL (9-20); Calcium 9.4 mg/dL (8.4-10.2); Carbon Dioxide 27 mmol/L (22-30); Chloride 105 mmol/L (98-107); Estimated CRCL calculation 85 ml/min; Estimated Glomerular Filt Rate > 60; Glucose 121 mg/dL (75-110); Lipase 100 U/L (23-300); Potassium 3.5 mmol/L (3.4-5.0); Sodium 138 mmol/L (137-145)
[2020-07-06 20:33] VITALS: BP 117/71; PULSE 70; RESP 24; TEMP 36.4; O2SAT 100
--- NOTE | 2020-07-06 20:52 | ED.ABDPAIN ---
HPI - Abdominal Pain General Chief Complaint: Abdominal Pain Stated Complaint: abd cramping Time Seen by Provider: 07/06/20 20:41 Source: patient and RN notes reviewed Mode of arrival: ambulatory Limitations: no limitations History of Present Illness HPI narrative: This is a 39 year old male with recent melanoma diagnosis with metastatic disease who presents for evaluation of right side abdominal pain and back pain. He states he developed sudden onset of pain at 2 am this morning. He described swelling and pain at the location that has been constant. He states at onset of pain he has multiple bowel movements at that time. He states he has never had similar pain in the past. He is scheduled to have surgery with Dr. Charles on Monday due to have a mass on his transverse colon. He denies cough, chest pain, fever or chills. He states he has having difficulty breathing due to the pain. He ran out of his ibuprofen and oxycodone so he has not taken anything for pain since yesterday. 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 Melanoma of buttock Polysubstance (excluding opioids) dependence Surgical History Surgical History History of colonoscopy History of forearm fracture with repair an reconstruction Family History Family History (Updated 07/06/20 @ 23:45 by Arely Mckeon RN) Father Heart attack Mother CKD (chronic kidney disease) Heart attack Grandparent Diabetes mellitus Heart disease Hypertension Cerebrovascular accident Colon cancer Social History Social History Smoking packs per day: 1 Smoking cigarettes per day: 20.0 Years smoked: 15 Smoking pack-years: 15.00 Smoking status: Current every day smoker Tobacco type: cigarettes Second hand tobacco smoke exposure: Yes Alcohol intake: former Drinks per week: 42 Substance use: current Substance use type: marijuana Other substance usage details: every day Last use: 07/06/20 Gender identity (if verbalized by the patient): Male Spiritual care concerns: No Exam Const: General: alert Orientation/consciousness: patient oriented x3 Eyes: EOM: EOMs intact bilaterally Chest: Chest palpation & inspection: normal inspection of the chest Resp: Effort & Inspection: normal respiratory effort and no retractions Auscultation: clear to auscultation bilaterally Cardio: Rate: regular rate Rhythm: regular rhythm Heart sounds: no murmurs GI: Inspection: distended GI Palp: Yes Soft to palpation, Yes Tenderness to palpation present (GI) and Yes Guarding due to palpation present (GI) Auscultation: Hypoactive bowel sounds present Skin: General skin exam: normal color Rashes: no rashes Neuro: General: patient oriented x3, moves all extremities and CN's II-XI intact bilaterally Course Consultations Consultation #1: I discussed case with DR. Hannah. He states he will compare CT to PET scan. He recommends admitting to hospitalist service with jarek. PAtient to be NPO Date: 07/06/20 Time: 21:47 Consultation #2: I Discussed case with Dr. Busby who accepts patient to medical floor as inpatient Date: 07/06/20 Time: 22:23 Vital Signs Vital signs: Vital Signs Temperature 96.0 F L 07/06/20 19:56 Pulse
[2020-07-06] MEDS: SODIUM CHLORIDE 0.9% IV 1,000 ML 999 ML IV CONT (21:13)
[2020-07-06] MEDS: ONDANSETRON INJ 4 MG/2 ML VIAL IV PUSH (21:13)
[2020-07-06] MEDS: HYDROmorphone HCL INJ (*CRX) 1 MG/ML SYR IV PUSH ×2 (21:13→23:05)
[2020-07-06 21:19] VITALS: BP 117/75; PULSE 85; RESP 16; O2SAT 100
--- NOTE | 2020-07-06 21:19 | PC.NURSE ---
pt states he can't urinate at this time. will ask again later.
[2020-07-06 22:15] VITALS: BP 117/86; PULSE 98; RESP 15; TEMP 36.6; O2SAT 100
[2020-07-06 22:35] LABS: Lactic Acid Reflex 1.6 mmol/L (0.7-2.1)
[2020-07-06 23:00] LABS: Add Urine Microscopic? YES; Appearance Urine Clear (Clear); Bilirubin Urine Negative (Negative); Blood Urine Negative (Negative); Color Urine Yellow (Yellow); Glucose Urine UA Negative (Negative); Ketones Urine Negative (Negative); Leukocyte Esterase Ur Negative LEU/UL (Negative); Nitrate Urine Negative (Negative); Protein Urine 1+ mg/dL (Negative); Urobilinogen Urine 0.2 mg/dL (<2.0)
[2020-07-06 23:02] LABS: Mucus Urine Few /lpf; RBC Urine 0-2 /hpf (0-2); WBC Urine 0-3 /hpf
[2020-07-06 23:29] VITALS: BP 121/75; PULSE 99; RESP 18; TEMP 36.2; O2SAT 100
--- NOTE | 2020-07-06 23:30 | ADMGEN ---
This patient, Wang Giraldo, was admitted to Medical Room 349-01. Patient/family oriented to hospital policies and general routines including ID bracelet, bed and alarms, visiting hours, pain management, procedures, bathroom and other care routines, personal items, smoking policy, room service/diet, and visiting hours. Information on how to activate the Rapid Response Team has been discussed. Patient/Family are encouraged to report perceived risks to care and to ask questions if they do not understand what they are told or what they should do.
[2020-07-06 23:32] VITALS: BMI 25.5
[2020-07-06] MEDS: SODIUM CHLORIDE 0.9% IV 1,000 ML 125 ML IV CONT (23:34)
[2020-07-07] VITALS (13 sets, daily range): BP systolic 118–144; BP diastolic 77–100; PULSE 72–102; RESP 15–22; TEMP 36.1–37.2; O2SAT 96–100
[2020-07-07] MEDS: HYDROmorphone HCL INJ (*CRX) 1 MG/ML SYR IV PUSH ×6 (01:34→16:40)
[2020-07-07 05:51] LABS: Basophils Percent Auto 0.2 % (0.2-1.2); Eosinophils Percent Auto 0.1 % (0-4.4); Hematocrit 39.7 % (42.0-52.0); Hemoglobin 13.8 g/dL (14.0-18.0); Immature Granulocyte Absolute 0.09 K/mm3 (0.00-0.031); Immature Granulocyte Percent A 0.5 % (0-0.5); Lymphocytes Absolute Auto 0.99 K/mm3 (0.9-3.2); Lymphocytes Percent Auto 5.5 % (18.3-44.2); Mean Corpuscular HGB Conc 34.8 g/dl (32-36); Mean Corpuscular Hemoglobin 31.7 pg (26-34); Mean Corpuscular Volume 91.3 fl (80-100); Mean Platelet Volume 10.8 fl (7.4-10.4); Monocytes Absolute Auto 1.2 K/mm3 (0.1-0.6); Monocytes Percent Auto 6.8 % (2.6-8.5); Neutrophils Absolute Auto 15.6 K/mm3 (1.3-6.7); Neutrophils Percent Auto 86.9 % (45.5-73.1); Platelet Count Result 192 k/mm3 (150-375); Red Blood Count 4.35 M/mm3 (4.6-6.20); Red Cell Distribution Width 12.6 % (11.5-14.5)
[2020-07-07 05:58] LABS: Alanine Aminotransferase 20 U/L (4-50); Albumin Level 3.5 g/dL (3.5-5.1); Alkaline Phosphatase 56 U/L (38-126); Anion Gap 4 mmol/L (8-16); Aspartate Amino Transferase 18 U/L (17-59); Bilirubin,Total 0.8 mg/dL (0.2-1.3); Blood Urea Nitrogen 13 mg/dL (9-20); Calcium 8.5 mg/dL (8.4-10.2); Carbon Dioxide 25 mmol/L (22-30); Chloride 108 mmol/L (98-107); Estimated CRCL calculation 97 ml/min; Estimated Glomerular Filt Rate > 60; Glucose 101 mg/dL (75-110); Potassium 3.4 mmol/L (3.4-5.0); Sodium 137 mmol/L (137-145)
[2020-07-07] MEDS: SODIUM CHLORIDE 0.9% IV 1,000 ML 125 ML IV CONT (07:43)
--- NOTE | 2020-07-07 08:24 | WPDANESEPPF ---
Anes - Initial Pre Proc Eval Procedure: Operation Date: 07/07/20 09:30 Proposed Procedures p Hand Assisted Laparoscopic Right Colectomy - Ilan Charles MD Date/Time: 07/07/20 08:24 Pre Op Diagnosis: Intraperitoneal mass, transverse colon erosion, Patient Data Age: 39 Gender: M Height: 1.75 m Weight: 78.4 kg Last Vital Signs Temp 37.2 C 07/07/20 05:17 Pulse 99 07/07/20 05:17 Resp 20 07/07/20 05:17 BP 144/77 H 07/07/20 05:17 Pulse Ox 97 07/07/20 05:17 Allergies Allergy/AdvReac Type Severity Reaction Status Date / Time codeine Allergy Intermediate Nausea and Verified 07/06/20 23:36 Vomiting,DIZZY Home Medications Medication Instructions Recorded Confirmed Type ibuprofen 600 mg PO BID PRN 07/06/20 07/06/20 History oxycodone-acetaminophen See Rx Instructions .ROUTE 07/06/20 07/06/20 History .COMPLEX PRN zolpidem 6.25 mg PO HS 07/06/20 07/06/20 History Laboratory Tests 07/06/20 07/06/20 07/06/20 20:08 20:08 21:59 WBC 15.4 K/mm3 H K/mm3 (4.5-10.0) RBC 4.62 M/mm3 M/mm3 (4.6-6.20) Hgb 14.9 g/dL g/dL (14.0-18.0) Hct 42.9 % % (42.0-52.0) MCV 92.9 fl fl (80-100) MCH 32.3 pg pg (26-34) MCHC 34.7 g/dl g/dl (32-36) RDW 12.8 % % (11.5-14.5) Plt Count 242 k/mm3 k/mm3 (150-375) MPV 10.1 fl fl (7.4-10.4) Immature Gran % (Auto) 0.3 % % (0-0.5) Neut % (Auto) 76.6 % H % (45.5-73.1) Lymph % (Auto) 10.0 % L % (18.3-44.2) Bond % (Auto) 12.3 % H % (2.6-8.5) Eos % (Auto) 0.5 % % (0-4.4) Baso % (Auto) 0.3 % % (0.2-1.2) Lymph # (Auto) 1.54 K/mm3 K/mm3 (0.9-3.2) Bond # (Auto) 1.9 K/mm3 H K/mm3 (0.1-0.6) Eos # (Auto) 0.1 K/mm3 K/mm3 (0-0.3) Baso # (Auto) 0.1 K/mm3 K/mm3 (0.0-0.1) Abs Immat Gran (auto) 0.05 K/mm3 H K/mm3 (0.00-0.031) Absolute Neuts (auto) 11.8 K/mm3 H K/mm3 (1.3-6.7) Absolute Nucleated RBC 0.0 K/mm3 K/mm3 (0.0-0.012) Nucleated RBC % 0.0 % % (0.0-0.2) Sodium 138 mmol/L mmol/L (137-145) Potassium 3.5 mmol/L mmol/L (3.4-5.0) Chloride 105 mmol/L mmol/L (98-107) Carbon Dioxide 27 mmol/L mmol/L (22-30) Anion Gap 6 mmol/L L mmol/L (8-16) BUN 14 mg/dL mg/dL (9-20) Creatinine 1.00 mg/dL mg/dL (0.7-1.3) Estim Creat Clear Calc 85 ml/min ml/min Estimated GFR > 60 (59 - ) Glucose 121 mg/dL H mg/dL (75-110) Lactic Acid Calcium 9.4 mg/dL mg/dL (8.4-10.2) Total Bilirubin 0.6 mg/dL mg/dL (0.2-1.3) AST 22 U/L U/L (17-59) ALT 24 U/L U/L (4-50) Alkaline Phosphatase 68 U/L U/L (38-126) Total Protein 7.0 g/dL g/dL (6.3-8.2) Albumin 4.1 g/dL g/dL (3.5-5.1) Lipase 100 U/L U/L (23-300) Urine Color Yellow (Yellow) Urine Appearance Clear (Clear) Urine pH 7.0 (5.0-9.0) Ur Specific [place] 1.010 (1.001-1.035) Urine Protein 1+ mg/dL H mg/dL (Negative) Urine Glucose (UA) Negative mg/dL mg/dL (Negative) Urine Ketones Negative mg/dL mg/dL (Negative) Ur Blood (Man) Negative (Negative) Urine Nitrate Negative (Negative) Urine Bilirubin Negative (Negative) Urine Urobilinogen 0.2 mg/dL mg/dL (<2.0) Leukocyte Esterase Rfl Negative ERASMO/UL ERASMO/UL (Negative) Urine RBC 0-2 /hpf /hpf (0-2) Urine WBC 0-3 /hpf /hpf Urine Mucus Few /lpf H /lpf 07/06/20 07/07/20 07/07/20 22:15 05:12 05:12 WBC 18.0 K/mm3 H K/mm3 (4.5-10.0) RBC 4.35 M/mm3 L M/mm3 (4.6-6.20) Hgb 13.8 g/dL L g/dL (14.0-18.0) Hct 39.7 % L
[2020-07-07] MEDS: LACTATED RINGERS 1,000 ML 30 ML IV CONT ×2 (09:00→12:38)
--- NOTE | 2020-07-07 09:27 | WPDANESPNB ---
Anes - Peripheral Nerve Block Date/Time: 07/07/20 09:27 I have discussed with the patient/family/POA the placement of a peripheral nerve block for post-operative pain management, including associated risks, benefits, complications, and side effects. Alternative methods of post-operative analgesia were detailed. Questions were solicited and answers provided to the satisfaction of the patient/family/POA. Time-Out: A pre-procedural Time-Out was completed immediately before starting the procedure and confirmed: Patient Identification, Site, Procedure, Patient Position and the Availability of Requisite Equipment. Clinical Indications: Acute post-operative pain management requested by the operative surgeon. Nerve Block Insertion Note Anes-nerve block: other (bilateral t8 yosi block) Patient position: supine Skin prep: chlorhexidine Needle: 22 gauge, stimulating, insulated echogenic needle. Needle length: 80 mm Technique: ultrasound (in plane) Technique comment: in plane Injectate: bupivacaine 0.25% with epi 5 mcg/ml (40cc (20cc per side)) Observations: tolerated well Complications: none Procedure start time:: 0 Procedure end time::
--- NOTE | 2020-07-07 09:30 | PM.CNGS ---
Assessment and Plan Assessment and plan (1) Acute abdomen: Code(s): R10.0 - Acute abdomen Status: Acute Assessment and Plan: suspicious for bowel perforation due to the metastatic melanoma. Probably not a large perforation as there was no free air but likely at least a micro perforation. I discussed this with the patient. He has been taking Dilaudid 1 mg every 2 hours and this is not holding him. Will go ahead urgently this morning with hand access laparoscopic right hemicolectomy to include excision of the proximal transverse colon mass likely metastatic melanoma. I discussed the procedure with him. He has not had a bowel prep. It is unlikely he will need an ileostomy or colostomy. He may require conversion to open surgery and resection may involve some additional organ segments if the mass is invading them as well. All questions were answered. He understands and agrees to go ahead this morning urgently. (2) Melanoma metastatic to digestive organ: Code(s): C43.9 - Malignant melanoma of skin, unspecified; C78.89 - Secondary malignant neoplasm of other digestive organs Status: Chronic (3) Smoker: Code(s): F17.200 - Nicotine dependence, unspecified, uncomplicated Status: Chronic Assessment and Plan: Increases surgical risk. History of Present Illness Consult details Consult date: 07/07/20 Reason for consult: abdominal pain Requesting physician: Bethany Winslow MD Narrative: patient is a 39-year-old man well known to me from evaluation for metastatic malignant melanoma. He presented with a large fleshy mass on the right buttocks which had eroded through the skin. After incisional biopsy this was found to be Malignant melanoma. He underwent excision by Dr. Bowman on June 05, 2020. As part of his workup, a PET-CT scan showed that he had a mass abutting his transverse colon. There was no other evidence of melanoma on the PET-CT. He had a colonoscopy jannie Manjarrez which showed the mass and it had eroded into the transverse colon. It was ulcerated. It was in the proximal transverse colon. It bled easily when even touched with forceps. It was not biopsied due to concerns over hemorrhage. After his colonoscopy, the patient was seen in the office earlier this month. He had been scheduled to have elective hand access laparoscopic right hemicolectomy tomorrow. However, yesterday morning about 2:00 a.m. he started developing right-sided abdominal pain that radiated to his back. The pain was very severe any eventually came to the emergency room. Evaluation there showed him to have a very tender abdomen especially on the right side. There was guarding and rebound as well. CT scan showed air within the mass suspicious for perforation. From the CT scan, we knew already that It had eroded into the lumen of the colon. this morning the patient's white blood cell count is even higher than it was yesterday in the emergency room. He continues to have severe abdominal pain and by my exam an acute abdomen. He is taken urgently now to surgery for hand assisted laparoscopic right colectomy. He had not started on his bowel prep prior to the onset of his symptoms. Patient does have a history of polysubstance abuse and dependence. Review of Systems Review of Systems: All systems reviewed & are unremarkable except as noted in HPI and below Constitutional: Constitutional: Denies chills and Denies fever(s) Cardiovascular: Cardiovascular: Denies chest pain, Denies diaphoresis, Denies dyspnea and Denies paroxysmal nocturnal dyspnea Respiratory: Respiratory: Denies chest congestion, Denies cough and Denies dyspnea Gastrointestinal: Gastrointestinal: Reports as per HPI, Reports abdominal pain and Denies vomiting Integumentary/Breasts: Skin/Breast: Reports as per HPI, Denies lesions and Denies rash [facility] Past Medical History Medical History
--- NOTE | 2020-07-07 09:41 | WPDHPUPDATE1 ---
History and Physical Update Update Date/Time: 07/07/20 09:41 History and Physical has been reviewed, including an updated exam of the patient. There are NO changes in the patient's condition. Risks, benefits, and alternatives have been discussed and questions answered. Patient agrees to proceed with procedure.
[2020-07-07] MEDS: BUPIVACAINE/EPINEPHRINE 0.5% 30 ML VIAL INFILTRATE (11:00)
[2020-07-07] MEDS: fentaNYL CITRATE INJ (*CRX) 100 MCG/2 ML VIAL 25 MCG IV PUSH ×3 (13:17→13:34)
[2020-07-07] MEDS: LACTATED RINGERS 1,000 ML 100 ML IV CONT (14:04)
[2020-07-07] MEDS: oxyCODONE/ACETAMINOPHEN (*CRX) 5-325 MG TABLET 2 TABLET PO ×2 (14:25→22:46)
[2020-07-07] MEDS: IBUPROFEN IV 800 MG/200 ML 800 MG/200 ML BAG 400 MG IVPB ×2 (15:09→18:00)
--- NOTE | 2020-07-07 15:44 | PM.PROC ---
Procedure Note - Detailed Date of procedure: 07/07/20 Pre-op diagnosis: Acute abdomen, melanoma metastatic colon acute abdomen, malignant melanoma metastatic to transverse colon Post-op diagnosis: other ( micro perforation melanoma metastatic to transverse colon) Procedure performed: Hand access laparoscopic right colectomy Description of procedure: The patient was taken to surgery and induced into general anesthesia. The abdomen was prepped and draped. The proposed hand access incision was marked in the upper abdomen in the midline above the umbilicus. It was about an 8 cm incision. It was marked on the skin. Local was infiltrated in the area of the anticipated incision and in the deeper subcutaneous tissues. Incision was made and dissection was carried down through the midline fascia. The peritoneal cavity was entered. I checked around the area. There were no anterior abdominal wall adhesions. The Phil wound guard was then placed. A sponge was placed in the abdomen. The GelPort was then placed. With a hand in the abdomen, I found the area in the right lower quadrant where the camera port would be placed. Local was infiltrated here. Incision was made and a 5 mm trocar was then placed in the right lower quadrant just above the inguinal ligament. We insufflated through here. I then placed under direct visualization another 5 mm port in the left mid abdomen. Again local was used and a 5 mm trocar was placed. We then placed the patient in Trendelenburg with the right side somewhat elevated. Palpation and laparoscopic review of the abdomen showed a very large, darkly pigmented mass in the proximal half of the transverse colon, closer to the midportion than the hepatic flexure. This was very suggestive of metastatic melanoma. The mass was not invading any other structures or the mesentery. There was no enteric content in the abdomen but there was bloody ascites as well as some inflammatory exudate noted. There was a lot of edema noted in the mesentery, peritoneum, and retroperitoneum. The peritoneum was entered just posterior to the cecum and the appendix. We then entered the retroperitoneum and began a medial to lateral dissection of the ascending colon. The abdomen had some bloody ascites in it. There was lot of edema in the peritoneum and in the retroperitoneum as described previously. There was very little bleeding associated with the surgery. I continued the retroperitoneal dissection up to the transverse mesocolon. We stayed above the duodenum and I was able to palpate the right kidney in the retroperitoneum, its expected position. From there I then elevated the distal ileum and terminal ileum. The ileocolic artery was identified. I divided the mesentery proximal to the ileocolic artery. This division was done with the LigaSure. Literally all the dissection was done with the LigaSure. I opened the mesentery up to an area on the distal ileum which would be our proximal extent of resection. I then proceeded staying fairly close to the root of the mesentery over to the ileocolic artery. I dissected around and exposed the ileocolic artery near its origin. It was then cauterized and divided with the LigaSure. There was no bleeding. I then continued the mesenteric dissection up to the transverse mesocolon. Care was taken to leave the duodenum located posterior to our mesenteric division. From there I went to the lateral peritoneal attachments to the cecum and ascending colon. These were divided with the LigaSure as well. This was continued up to the hepatic flexure and likewise the hepatocolic ligament was divided with the LigaSure. I was then able to expose the transverse colon mesentery. I started the dissection from lateral to medial in the transverse colon mesentery. The mesentery near the metastatic implant was thickened and bound down more than the other mesentery. It was more difficult to dissect and divide. Vascular structures within the
[2020-07-07] MEDS: POTASSIUM CHLORIDE 20 MEQ PACKET (FOR LIQUID) PO (16:43)
--- NOTE | 2020-07-07 16:48 | PM.IMPN ---
Subjective Date/time seen: 07/07/20 16:30 Objective Data Vital Signs Vital Signs: Vital Signs - 24 hr 07/06/20 19:56 07/06/20 20:33 07/06/20 21:19 Temperature 96.0 F L 97.6 F Pulse Rate 95 70 85 Respiratory Rate 18 24 H 16 Blood Pressure 80/21 L 117/71 117/75 Pulse Oximetry 98 100 100 07/06/20 22:15 07/06/20 23:29 07/07/20 00:15 Temperature 98 F 97.2 F L Pulse Rate 98 99 Respiratory Rate 15 18 Blood Pressure 117/86 121/75 Pulse Oximetry 100 100 96 07/07/20 05:17 07/07/20 09:29 07/07/20 12:45 Temperature 99 F 98.7 F 97 F L Pulse Rate 99 102 H 72 Respiratory Rate 20 18 15 Blood Pressure 144/77 H 118/78 138/89 Pulse Oximetry 97 96 100 07/07/20 12:50 07/07/20 13:05 07/07/20 13:20 Temperature Pulse Rate 96 80 Respiratory Rate 18 22 H Blood Pressure 128/91 H 137/100 H Pulse Oximetry 100 97 97 07/07/20 13:35 07/07/20 14:10 07/07/20 14:25 Temperature 98.2 F 97.3 F L 97.2 F L Pulse Rate 87 79 91 Respiratory Rate 18 16 16 Blood Pressure 140/94 H 133/88 138/89 Pulse Oximetry 99 96 97 07/07/20 14:55 07/07/20 15:55 Temperature 97.5 F L 97.9 F Pulse Rate 93 94 Respiratory Rate 16 16 Blood Pressure 143/93 H 125/80 Pulse Oximetry 97 96 Intake/Output Intake/Output: Intake & Output 07/04/20 07/05/20 07/06/20 07/07/20 23:59 23:59 23:59 23:59 Intake Total 1050 2440 Output Total 800 Balance 1050 1640 Meds/Results Medications: Active Medications Generic Name Dose Route Start Last Admin Trade Name Freq PRN Reason Stop Dose Admin Acetaminophen 500 mg 07/07/20 13:45 Acetaminophen 500 Mg Tablet PO Q6H PRN Mild Pain (1-3) or Fever Alvimopan 12 mg 07/08/20 09:00 Alvimopan 12 Mg Capsule PO 07/14/20 21:01 Q12HR [facility] Enoxaparin Sodium 30 mg 07/07/20 21:00 Enoxaparin 30 Mg/0.3 Ml Syringe SUB-Q Q12HR [facility] Famotidine 20 mg 07/07/20 21:00 Famotidine 20 Mg Tablet PO Q12HR [facility] Hydromorphone HCl 2 mg 07/07/20 13:45 Hydromorphone Hcl Inj (*Crx) 1 Mg/Ml Syr IV PUSH Q2H PRN Pain Rated 7-10 Hydromorphone HCl 1 mg 07/07/20 13:45 07/07/20 16:40 Hydromorphone Hcl Inj (*Crx) 1 Mg/Ml Syr IV PUSH 1 mg Q2H PRN Administration Pain Rated 4-6 Piperacillin/Tazobactam/Dextrose 3.375 gm in 50 mls @ 100 mls/hr 07/07/20 04:00 07/07/20 16:42 Zosyn 3.375 Gm/D5w 50ml Pm IVPB 100 mls/hr Q6H KUN Administration Lactated Ringer's 1,000 mls @ 100 mls/hr 07/07/20 13:45 07/07/20 14:04 Lr - Lactated Ringers Iv IV CONT 100 mls/hr .Q10H KUN Administration Ibuprofen 800 mg in 200 mls @ 400 mls/hr 07/07/20 13:45 07/07/20 15:39 Caldolor 800 Mg/200 Ml IVPB Infused Q6HR KUN Infusion Naloxone HCl 0.1 mg 07/07/20 13:45 Naloxone Hcl 0.4 Mg/Ml Vial IV PUSH Q2M PRN Opiate Reversal Ondansetron HCl 4 mg 07/07/20 13:45 Ondansetron Inj 4 Mg/2 Ml Vial IV PUSH Q4H PRN Nausea And Vomiting Oxycodone/Acetaminophen 1 tablet 07/07/20 13:45 Oxycodone/Acetaminophen (*Crx) 5-325 Mg Tablet PO Q4H PRN Pain Rated 4-6 Oxycodone/Acetaminophen 2 tablet 07/07/20 13:45 07/07/20 14:25 Oxycodone/Acetaminophen (*Crx) 5-325 Mg Tablet PO 2 tablet Q6H PRN Administration Pain Rated 7-10 Radiology Results: ITS Impressions Chest X-Ray 07/06/20 21:11 IMPRESSION: 1. No acute cardiopulmonary abnormality. Abdomen/Pelvis CT 07/06/20 21:13 IMPRESSION: 1. Enlarging epigastric mass involving the transverse colon now containing foci of gas, concerning for erosion into the lumen of the colon. Surgical evaluation is recommended. Labs Labs: Laboratory Results - last 24 hr 07/06/20 07/06/20 07/06/20 20:08 20:08 21:59 WBC 15.4 H RBC 4.62 Hgb 14.9 Hct 42.9 MCV 92.9 MCH 32.3 MCHC 34.7 RDW 12.8 Plt Count 242 MPV 10.1 Immature Gran % (Auto) 0.3 Neut % (Auto) 76.6 H Lymph % (Auto) 10.0 L [place] % (Auto) 1
--- NOTE | 2020-07-07 16:55 | PM.IMHP ---
H&P: HPI History of Present Illness Date/Time: 07/07/20 16:40 Chief Complaint: Abdominal pain Narrative: Date of Service 07/07/20 1640 The supervising physician for this history and physical is Dr Zoe Galindo. Mr. Marinelli is a 39yo M with recently diagnosed metastatic melanoma who presented to the ED for evaluation of abdominal pain. He underwent incisional biopsy of right buttocks mass 05/21/[address] Charles which was found to be melanoma. He then underwent wide excision of right gluteal melanoma by plastic surgery, Dr Graham, on 06/05/20. That same day, he had a PET scan that demonstrated a right upper quadrant soft tissue mass in the mid transverse colon consistent with metastatic disease, right inguinal lymph with possible metastatic disease. He has established with oncology, Dr Cisneros. He was scheduled to have laparoscopic right hemicolectomy by Dr. Charles 07/08/20 but he suddenly developed acute onset upper abdominal pain 2 days prior and proceeded to ED. He denies any nausea or vomiting. Last bowel movement 1 day prior to arrival. Routine labs on arrival are significant for leukocytosis. He is afebrile. CT abdomen/pelvis demonstrates this epigastric mass may be enlarging, involving the transverse colon now containing foci of gas concerning for microperforation of the colon. He is admitted to the hospitalist service in the setting. He has already been seen by general surgery, Dr. Charles, and underwent urgent hand access laparoscopic right colectomy this morning prior to my encounter. Review of Systems Review of Systems: Narrative: At time of my encounter he rates his upper abdominal pain 8/10 and denies nausea or vomiting. He denies chest pain, shortness of breath, palpitations, cough. Routine preop COVID testing 07/04/2020 was negative. Denies fevers, chills, or night sweats. Twelve systems were reviewed with pertinent positives and negatives as per HPI. Except as documented, all other systems were reviewed and are negative. 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 Melanoma of buttock Polysubstance (excluding opioids) dependence Surgical History Surgical History (Updated 07/08/20 @ 07:48 by Linda Toure PA-C) H/O right hemicolectomy 07/07/[address] Charles - for removal of metastatic mass to transverse colon with suspected microperforation History of colonoscopy History of forearm fracture with repair an reconstruction History of melanoma excision Incisional biopsy right buttock 05/21/20 Wide excision right gluteal melanoma 13cm 06/05/20 Family History Family History Father Heart attack Mother CKD (chronic kidney disease) Heart attack Grandparent Diabetes mellitus Heart disease Hypertension Cerebrovascular accident Colon cancer Social History Social History Smoking packs per day: 1 Smoking cigarettes per day: 20.0 Years smoked: 15 Smoking pack-years: 15.00 Smoking status: Current every day smoker Tobacco type: cigarettes Second hand tobacco smoke exposure: Yes Alcohol intake: former Drinks per week: 42 Substance use: current Substance use type: marijuana Other substance usage details: every day Last use: 07/06/20 Living arrangements: with friend(s) Gender identity (if verbalized by the patient): Male Spiritual care concerns: No Meds Home Medications and Allergies Home Medications Medication Instructions Recorded Confirmed Type ibuprofen 600 mg PO BID PRN 07/06/20 07/06/20 History oxycodone-acetaminophen See Rx Instructions .ROUTE 07/06/20 07/06/20 History .COMPLEX PRN zolpidem 6.25 mg PO HS 07/06/20 07/06/20 History Allergies Allergy/AdvReac Type Severity Reaction Status Date / Time codeine AdvReac Intermediate Nausea and Verified
[2020-07-07] MEDS: HYDROmorphone HCL INJ (*CRX) 1 MG/ML SYR 2 MG IV PUSH ×2 (18:43→21:57)
[2020-07-07] MEDS: FAMOTIDINE 20 MG TABLET PO (21:59)
[2020-07-08] MEDS: IBUPROFEN IV 800 MG/200 ML 800 MG/200 ML BAG 400 MG IVPB ×2 (00:08→05:54)
[2020-07-08] MEDS: HYDROmorphone HCL INJ (*CRX) 1 MG/ML SYR 2 MG IV PUSH ×3 (00:48→09:49)
[2020-07-08 05:54] VITALS: BP 123/79; PULSE 86; RESP 18; TEMP 36.1; O2SAT 97
[2020-07-08 05:59] LABS: Hemoglobin 12.7 g/dL (14.0-18.0); Mean Corpuscular HGB Conc 34.3 g/dl (32-36); Mean Corpuscular Hemoglobin 31.8 pg (26-34); Mean Corpuscular Volume 92.7 fl (80-100); Mean Platelet Volume 10.3 fl (7.4-10.4); Platelet Count Result 192 k/mm3 (150-375); Red Blood Count 3.99 M/mm3 (4.6-6.20); Red Cell Distribution Width 13.1 % (11.5-14.5); White Blood Count 18.1 K/mm3 (4.5-10.0)
[2020-07-08] MEDS: LACTATED RINGERS 1,000 ML 100 ML IV CONT (06:00)
[2020-07-08 06:07] LABS: Anion Gap 1 mmol/L (8-16); Blood Urea Nitrogen 10 mg/dL (9-20); Carbon Dioxide 30 mmol/L (22-30); Chloride 108 mmol/L (98-107); Estimated CRCL calculation 88 ml/min; Estimated Glomerular Filt Rate > 60; Glucose 131 mg/dL (75-110); Magnesium 1.9 mg/dL (1.6-2.3); Sodium 139 mmol/L (137-145)
[2020-07-08] MEDS: oxyCODONE/ACETAMINOPHEN (*CRX) 5-325 MG TABLET 2 TABLET PO ×3 (08:09→22:02)
[2020-07-08 08:10] VITALS: RESP 18; O2SAT 96
[2020-07-08] MEDS: ALVIMOPAN 12 MG CAPSULE PO ×2 (08:10→21:09)
[2020-07-08] MEDS: FAMOTIDINE 20 MG TABLET PO ×2 (08:10→21:09)
[2020-07-08] MEDS: ENOXAPARIN 30 MG/0.3 ML SYRINGE SUB-Q (08:11)
--- NOTE | 2020-07-08 08:17 | WPDANESPN ---
Anes - Prog Note Post-Op Date/Time: 07/08/20 08:17 Cardiovascular status: normal Respiratory status: normal Airway patency: baseline Mental status: baseline Post-Op hydration status: normal (on clear liquids) Vital Signs: Last Vital Signs Temp 36.1 C L 07/08/20 05:54 Pulse 86 07/08/20 05:54 Resp 18 07/08/20 05:54 BP 123/79 07/08/20 05:54 Pulse Ox 97 07/08/20 05:54 Pain Score (VAS): 3 I/O: Intake & Output 07/07/20 07/08/20 07/08/20 23:59 07:59 15:59 Intake Total 1040 1999 Output Total 325 Balance 715 1999 Laboratory Tests 07/08/20 05:49 07/08/20 05:49 07/08/20 07/08/20 05:49 05:49 WBC 18.1 H RBC 3.99 L Hgb 12.7 L Hct 37.0 L MCV 92.7 MCH 31.8 MCHC 34.3 RDW 13.1 Plt Count 192 MPV 10.3 Sodium 139 Potassium 4.0 Chloride 108 H Carbon Dioxide 30 Anion Gap 1 L BUN 10 Creatinine 1.00 Estim Creat Clear Calc 88 Estimated GFR > 60 Glucose 131 H Calcium 9.0 Magnesium 1.9 Post-procedural complaints: none Patient Feedback: Patient satisfied with anesthetic care.
--- NOTE | 2020-07-08 11:56 | PM.PNGS ---
Progress Note: A&P Assessment and Plan (1) Acute abdomen: Code(s): R10.0 - Acute abdomen Status: Acute Assessment and Plan: POD#1 BONI right colectomy and patient is doing well. Patient has high tolerance for pain medication. His analgesics were adjusted. Encouraged transitioning to the oral Percocet for pain control throughout the day. Patient appears comfortable and moving around the room well. Start advancing diet to full liquids. Await return of bowel function. Will d/c IV fluids. Continue IV abx and repeat labs again tomorrow morning. Encouraged increasing activity, walking the halls, and IS use. 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 Additional Plan I have discussed the plan of care with Dr. Charles. Subjective Subjective Date/Time Seen: 07/08/20 11:56 Post Op day: 1 (Hand access laparoscopic right colectomy) Patient reports: still having pain, voiding w/o difficulty, no flatus, no bowel movement and afebrile Interval history: Patient feeling well today. Dealing with post-operative pain that is being controlled with current analgesics. No nausea or vomiting. Tolerating clear liquids. No other complaints at this time. Review of Systems Review of Systems: All systems reviewed & are unremarkable except as noted in HPI and below Constitutional: Constitutional: Reports as per HPI, Reports no additional constitutional complaints, Denies chills and Denies fever(s) Cardiovascular: Cardiovascular: Reports no additional cardiovascular complaints, Denies chest pain and Denies leg edema Respiratory: Respiratory: Reports no additional respiratory complaints, Denies cough and Denies dyspnea Gastrointestinal: Gastrointestinal: Reports as per HPI and Reports no additional gastrointestinal complaints Neurologic: Reports system reviewed and no additional complaints, except as documented, Denies Abnormal speech present and Denies focal weakness Exam Const: General: comfortable, no acute distress, alert and awake Orientation/consciousness: patient oriented x3 Resp: Effort & Inspection: normal respiratory effort Auscultation: clear to auscultation bilaterally Cardio: Rate: regular rate Rhythm: regular rhythm GI: Inspection: non-distended and incision (Abdominal incisions clean and dry, glue intact.) GI Palp: Yes Soft to palpation, Yes Tenderness to palpation present (GI) (incisional), No Guarding due to palpation present (GI) and No Hernia present Auscultation: normal bowel sounds Skin: General skin exam: normal color Neuro: General: moves all extremities and no focal motor deficits Speech: No Abnormal speech present Extrem: General: no clubbing, cyanosis or edema and no calf tenderness Psych: Mental Status: mental status grossly normal Insight: Good insight present (Psych) Judgement: Good judgement present (Psych) Objective Data Vital Signs Vital Signs: Vital Signs - 24 hr 07/07/20 12:45 07/07/20 12:50 07/07/20 13:05 Temperature 97 F L Pulse Rate 72 96 Respiratory Rate 15 18 Blood Pressure 138/89 128/91 H Pulse Oximetry 100 100 97 07/07/20 13:20 07/07/20 13:35 07/07/20 14:10 Temperature 98.2 F 97.3 F L Pulse Rate 80 87 79 Respiratory Rate 22 H 18 16 Blood Pressure 137/100 H 140/94 H 133/88 Pulse Oximetry 97 99 96 07/07/20 14:25 07/07/20 14:55 07/07/20 15:55 Temperature 97.2 F L 97.5 F L 97.9 F Pulse Rate 91 93 94 Respiratory Rate 16 16 16 Blood Pressure 138/89 143/93 H 125/80 Pulse Oximetry 97 97 96 07/07/20 21:56 07/08/20 05:54 Temperature 97 F L 97 F L Pulse Rate 86 86 Respiratory Rate 18 18 Blood Pressure 132/88 123/79 Pulse Oximetry 97 97 Intake/Output Intake/Output: Intake & Output 07/05/20 07/06/20 07/07/20 07/08/20 23:59 23:59 23:59 23:59 Intake
[2020-07-08] MEDS: HYDROmorphone HCL INJ (*CRX) 1 MG/ML SYR IV PUSH ×3 (12:13→21:10)
[2020-07-08 14:00] VITALS: BP 127/83; PULSE 86; RESP 14; TEMP 36.2; O2SAT 99
--- NOTE | 2020-07-08 16:17 | PM.IMPN ---
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 He is now POD#1 s/p right hemicolectomy by Dr Charles 07/08/20. Doing well. Tolerating full liquids today but no flatus or BM. Management per surgery. Remains on IV Zosyn (day 2). Persistent leukocytosis today, monitor CBC. Pathology from surgery pending. 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 (3) Smoker: Code(s): F17.200 - Nicotine dependence, unspecified, uncomplicated Status: Chronic Assessment and Plan: Smoking cessation encouraged. Subjective Date/time seen: 07/08/20 1430 Interval history: Mr. Marinelli is a 39yo M admitted with abdominal pain now POD#1 s/p right colectomy due to known metastatic mass of the transverse colon. He describes diffuse abdominal pain today. He is up walking around the room without difficulty. He denies any nausea or vomiting and has tolerated some full liquids for breakfast is eating lunch at time my arrival. No flatus or BM yet. Review of Systems Review of Systems: All systems reviewed & are unremarkable except as noted in HPI and below Exam Narrative: Exam Narrative: General: Well-developed male up walking independently in the room in no acute distress. HEENT: Normocephalic, EOMI, oral mucosa moist. Chest: Lungs clear to auscultation in all eason. Respirations are even and nonlabored. Tolerating room air. Heart: Rate and rhythm regular. Abdomen: Soft, diffuse tenderness to very light palpation, laparoscopic incisional sites and smaller midline incision to upper abdomen are clean, dry, intact, bowel sounds hypoactive but present. Skin: Warm, dry, no rashes or lesions noted on limited exam. Extremities: Peripheral pulses intact. No edema or pain to palpation. Neurologic: Awake and alert, answering questions appropriately. No focal neurological deficits are noted. Speech is clear. Psychiatric: Mood and affect are normal. Cooperative and pleasant. Objective Data Vital Signs Vital Signs: Last Vital Signs Temp 97.2 F L 07/08/20 14:00 Pulse 86 07/08/20 14:00 Resp 14 07/08/20 14:00 BP 127/83 07/08/20 14:00 Pulse Ox 99 07/08/20 14:00 Intake/Output Intake/Output: Intake & Output 07/05/20 07/06/20 07/07/20 07/08/20 23:59 23:59 23:59 23:59 Intake Total 1050 2740 3130 Output Total 800 Balance 1050 1940 3130 Meds/Results Medications: Active Medications Generic Name Dose Route Start Last Admin Trade Name Freq PRN Reason Stop Dose Admin Acetaminophen 500 mg 07/07/20 13:45 Acetaminophen 500 Mg Tablet PO Q6H PRN Mild Pain (1-3) or Fever Alvimopan 12 mg 07/08/20 09:00 07/08/20 08:10 Alvimopan 12 Mg Capsule PO 07/14/20 21:01 12 mg Q12HR KUN Administration Enoxaparin Sodium 30 mg 07/07/20 21:00 07/08/20 08:11 Enoxaparin 30 Mg/0.3 Ml Syringe SUB-Q 30 mg Q12HR KUN Administration Famotidine 20 mg 07/07/20 21:00 07/08/20 08:10 Famotidine 20 Mg Tablet PO 20 mg Q12HR KUN Administration Hydromorphone HCl 1 mg 07/08/20 10:12 07/08/20 12:13 Hydromorphone Hcl Inj (*Crx) 1 Mg/Ml Syr IV PUSH 1 mg Q2H PRN Administration Pain Rated 7-10 Hydromorphone HCl 0.5 mg 07/08/20 10:12 Hydromorphone Hcl Inj (*Crx) 1 Mg/Ml Syr IV PUSH Q2H PRN Pain Rated 4-6 Piperacillin/Ta
[2020-07-08 21:08] VITALS: PULSE 70; RESP 20; TEMP 36.6; O2SAT 100
[2020-07-08] MEDS: ZOLPIDEM TARTRATE (*CRX) 5 MG TABLET 10 MG PO (21:09)
[2020-07-08 23:03] VITALS: BP 170/87
[2020-07-08] MEDS: ONDANSETRON INJ 4 MG/2 ML VIAL IV PUSH (23:42)
[2020-07-09 04:16] VITALS: BP 148/98; PULSE 69; RESP 18; TEMP 36.4; O2SAT 99
[2020-07-09] MEDS: oxyCODONE/ACETAMINOPHEN (*CRX) 5-325 MG TABLET 2 TABLET PO ×2 (04:16→18:41)
[2020-07-09 05:56] LABS: Hematocrit 41.5 % (42.0-52.0); Hemoglobin 13.8 g/dL (14.0-18.0); Mean Corpuscular HGB Conc 33.3 g/dl (32-36); Mean Corpuscular Hemoglobin 31.6 pg (26-34); Mean Platelet Volume 10.4 fl (7.4-10.4); Platelet Count Result 218 k/mm3 (150-375); Red Blood Count 4.37 M/mm3 (4.6-6.20); White Blood Count 10.3 K/mm3 (4.5-10.0)
[2020-07-09 06:06] LABS: Anion Gap 4 mmol/L (8-16); Blood Urea Nitrogen 7 mg/dL (9-20); Calcium 8.9 mg/dL (8.4-10.2); Carbon Dioxide 32 mmol/L (22-30); Chloride 102 mmol/L (98-107); Estimated CRCL calculation 97 ml/min; Estimated Glomerular Filt Rate > 60; Glucose 106 mg/dL (75-110); Potassium 3.7 mmol/L (3.4-5.0); Sodium 138 mmol/L (137-145)
[2020-07-09] MEDS: ONDANSETRON INJ 4 MG/2 ML VIAL IV PUSH (06:27)
[2020-07-09] MEDS: FAMOTIDINE 20 MG TABLET PO ×2 (09:32→21:29)
[2020-07-09] MEDS: ALVIMOPAN 12 MG CAPSULE PO ×2 (09:33→21:29)
[2020-07-09] MEDS: IBUPROFEN IV 800 MG/200 ML 800 MG/200 ML BAG 400 MG IVPB ×3 (09:39→21:29)
--- NOTE | 2020-07-09 10:31 | PM.PNGS ---
Progress Note: A&P Assessment and Plan (1) Acute abdomen: Code(s): R10.0 - Acute abdomen Status: Acute Assessment and Plan: Patient with vomiting overnight. This morning he has had a bowel movement and is feeling much better. Incisions look good. His abdomen is soft and he has good bowel sounds. Pain is better controlled today. Will advance to a regular diet. Continue IV antibiotics. He could potentially discharge tomorrow if he continues to improve. Encouraged increased activity and walking the halls. 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 Additional Plan I have discussed the plan of care with Dr. Charles. Subjective Subjective Date/Time Seen: 07/09/20 10:31 Post Op day: 2 (Hand access laparoscopic right colectomy) Patient reports: feels better, pain is less, tolerating liquids well, voiding w/o difficulty, flatus, bowel movement and vomiting (Overnight) Interval history: Patient seen this morning. He reports having 3 episodes of emesis overnight. He reports his abdominal pain was about the same through the night as it was yesterday. This morning, he started passing more gas and had a bowel movement. Since then, he is feeling better and his abdominal pain has improved. No more emesis. No other complaints at this time. Review of Systems Review of Systems: All systems reviewed & are unremarkable except as noted in HPI and below Exam Const: General: comfortable, no acute distress, alert and awake Orientation/consciousness: patient oriented x3 Resp: Effort & Inspection: normal respiratory effort Auscultation: clear to auscultation bilaterally Cardio: Rate: regular rate Rhythm: regular rhythm GI: Inspection: non-distended and incision (Abdominal incisions clean and dry, glue intact.) GI Palp: Yes Soft to palpation, Yes Tenderness to palpation present (GI) (incisional), No Guarding due to palpation present (GI) and No Rebound tenderness present Auscultation: normal bowel sounds Skin: General skin exam: normal color Neuro: General: moves all extremities and no focal motor deficits Extrem: General: no clubbing, cyanosis or edema and no calf tenderness Psych: Mental Status: mental status grossly normal Insight: Good insight present (Psych) Judgement: Good judgement present (Psych) Objective Data Vital Signs Vital Signs: Vital Signs - 24 hr 07/08/20 14:00 07/08/20 21:08 07/08/20 23:03 Temperature 97.2 F L 98 F Pulse Rate 86 70 Respiratory Rate 14 20 Blood Pressure 127/83 170/87 H Pulse Oximetry 99 100 07/09/20 04:16 Temperature 97.6 F Pulse Rate 69 Respiratory Rate 18 Blood Pressure 148/98 H Pulse Oximetry 99 Intake/Output Intake/Output: Intake & Output 07/06/20 07/07/20 07/08/20 07/09/20 23:59 23:59 23:59 23:59 Intake Total 1050 2740 4030 850 Output Total 800 600 Balance 1050 1940 3430 850 Meds/Results Medications: Active Medications Generic Name Dose Route Start Last Admin Trade Name Freq PRN Reason Stop Dose Admin Acetaminophen 500 mg 07/07/20 13:45 Acetaminophen 500 Mg Tablet PO Q6H PRN Mild Pain (1-3) or Fever Alvimopan 12 mg 07/08/20 09:00 07/09/20 09:33 Alvimopan 12 Mg Capsule PO 07/14/20 21:01 12 mg Q12HR KUN Administration Famotidine 20 mg 07/07/20 21:00 07/09/20 09:32 Famotidine 20 Mg Tablet PO 20 mg Q12HR KUN Administration Hydromorphone HCl 0.5 mg 07/09/20 08:22 Hydromorphone Hcl Inj (*Crx) 1 Mg/Ml Syr IV PUSH Q2H PRN Pain Rated 7-10 Piperacillin/Tazobactam/Dextrose 3.375 gm in 50 mls @ 100 mls/hr 07/07/20 04:00 07/09/20 10:07 Zosyn 3.375 Gm/D5w 50ml Pm IVPB Infused Q6H KUN Infusion Ibuprofen 800 mg in 200 mls @ 400 mls/hr 07/09/20 09:00 07/09/20 10:08 Gordondol
--- NOTE | 2020-07-09 12:14 | PM.IMPN ---
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 He is now POD#2 s/p right hemicolectomy by Dr Charles 07/08/20. Management per surgery. Remains on IV Zosyn (day 3). Persistent leukocytosis today, monitor CBC. Pathology from surgery consistent with metastatic cancer, skin primary. Vomiting today, anticipate he may be ready for discharge tomorrow. 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 (3) Smoker: Code(s): F17.200 - Nicotine dependence, unspecified, uncomplicated Status: Chronic Assessment and Plan: Smoking cessation encouraged. Subjective Date/time seen: 07/09/20 1100 Interval history: Mr. Marinelli is a 39yo M admitted with abdominal pain now POD#2 s/p right colectomy due to known metastatic mass of the transverse colon. He describes his abdominal pain is improved compared to yesterday but he did have some vomiting overnight. Had a brown liquid BM this morning. No chest pain or shortness of breath and otherwise no complaints. Review of Systems Review of Systems: All systems reviewed & are unremarkable except as noted in HPI and below Exam Narrative: Exam Narrative: General: Male resting comfortably supine in bed in no acute distress. HEENT: Normocephalic, EOMI, oral mucosa moist. Chest: Lungs clear to auscultation in all eason. Respirations are even and nonlabored. Tolerating room air. Heart: Rate and rhythm regular. Abdomen: Soft, mild right abdominal tenderness to very light palpation, incisional sites and smaller midline incision to upper abdomen are clean, dry, intact, bowel sounds hypoactive but present. Skin: Warm, dry, no rashes or lesions noted on limited exam. Extremities: Peripheral pulses intact. No edema or pain to palpation. Neurologic: Awake and alert, answering questions appropriately. No focal neurological deficits are noted. Speech is clear. Psychiatric: Mood and affect are normal. Cooperative and pleasant. Objective Data Vital Signs Vital Signs: Last Vital Signs Temp 99.0 F 07/09/20 13:50 Pulse 67 07/09/20 13:50 Resp 16 07/09/20 13:50 BP 148/88 H 07/09/20 13:50 Pulse Ox 97 07/09/20 13:50 Intake/Output Intake/Output: Intake & Output 07/06/20 07/07/20 07/08/20 07/09/20 23:59 23:59 23:59 23:59 Intake Total 1050 2740 4030 850 Output Total 800 600 Balance 1050 1940 3430 850 Meds/Results Medications: Active Medications Generic Name Dose Route Start Last Admin Trade Name Freq PRN Reason Stop Dose Admin Acetaminophen 500 mg 07/07/20 13:45 Acetaminophen 500 Mg Tablet PO Q6H PRN Mild Pain (1-3) or Fever Alvimopan 12 mg 07/08/20 09:00 07/09/20 09:33 Alvimopan 12 Mg Capsule PO 07/14/20 21:01 12 mg Q12HR KUN Administration Famotidine 20 mg 07/07/20 21:00 07/09/20 09:32 Famotidine 20 Mg Tablet PO 20 mg Q12HR KUN Administration Hydromorphone HCl 0.5 mg 07/09/20 08:22 Hydromorphone Hcl Inj (*Crx) 1 Mg/Ml Syr IV PUSH Q2H PRN Pain Rated 7-10 Piperacillin/Tazobactam/Dextrose 3.375 gm in 50 mls @ 100 mls/hr 07/07/20 04:00 07/09/20 10:07 Zosyn 3.375 Gm/D5w 50ml Pm IVPB Infused Q6H KUN Infusion Ibuprofen 800 mg in 200 mls @ 400 mls/hr 07/09/20 09:00 07/09/20 10:08 Caldolor 800 Mg/200 Ml IVPB Infused Q6H KUN Infusion Naloxo
[2020-07-09 13:50] VITALS: BP 148/88; PULSE 67; RESP 16; TEMP 37.2; O2SAT 97
[2020-07-09] MEDS: ZOLPIDEM TARTRATE (*CRX) 5 MG TABLET 10 MG PO (21:30)
[2020-07-09 21:43] VITALS: BP 127/74; PULSE 89; RESP 18; TEMP 36.4; O2SAT 98
[2020-07-09] MEDS: HYDROmorphone HCL INJ (*CRX) 1 MG/ML SYR 0.5 MG IV PUSH (23:19)
[2020-07-10] MEDS: IBUPROFEN IV 800 MG/200 ML 800 MG/200 ML BAG 400 MG IVPB ×2 (03:41→09:18)
[2020-07-10 06:24] LABS: Hemoglobin 13.5 g/dL (14.0-18.0); Mean Corpuscular HGB Conc 34.6 g/dl (32-36); Mean Corpuscular Hemoglobin 32.1 pg (26-34); Mean Corpuscular Volume 92.9 fl (80-100); Platelet Count Result 233 k/mm3 (150-375); Red Cell Distribution Width 12.7 % (11.5-14.5)
[2020-07-10 06:37] LABS: Anion Gap 4 mmol/L (8-16); Blood Urea Nitrogen 5 mg/dL (9-20); Calcium 8.5 mg/dL (8.4-10.2); Carbon Dioxide 30 mmol/L (22-30); Chloride 105 mmol/L (98-107); Estimated CRCL calculation 97 ml/min; Estimated Glomerular Filt Rate > 60; Glucose 94 mg/dL (75-110); Potassium 2.9 mmol/L (3.4-5.0); Sodium 139 mmol/L (137-145)
[2020-07-10 08:13] LABS: Magnesium 1.8 mg/dL (1.6-2.3)
--- NOTE | 2020-07-10 08:17 | PM.DS ---
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 There was evidence of perforation of the bowel on CT scan. He was taken to surgery and underwent hand access laparoscopic extended right hemicolectomy on 07/07/2020 on an urgent basis. (3) Melanoma of buttock: Code(s): C43.59 - Malignant melanoma of other part of trunk Status: Acute (4) Smoker: Code(s): F17.200 - Nicotine dependence, unspecified, uncomplicated Status: Chronic DS: Summary Hospital Course Hospital Course: Patient has a history of large melanoma that had eroded through the skin on his right buttock. He had undergone excision of this by Dr. Bowman on June 05, 2020. Pet CT prior to that surgery also showed evidence of a soft tissue mass with abnormal FDG uptake in the mid transverse colon suggestive of metastatic disease. Following his excision, he had a colonoscopy by Dr. berg on 06/17/2020. This showed an ulcerated mass in the proximal transverse colon that bled easily. The patient had been seen in my office and scheduled to have hand access laparoscopic right hemicolectomy on 07/08/2020. He developed severe acute abdominal pain on 07 06 2020. He came to the emergency room and was found to have an acute abdomen. It appeared that there had been some perforation related to the metastatic melanoma to the transverse colon. There was no free air or large amount of site ease. He was given analgesics and IV Zosyn antibiotics. He had no improvement at all on 07/07/2020. He was taken to surgery urgently on 07/07/2020 and underwent hand access laparoscopic right hemicolectomy which included excision of the melanoma. Pathology did show a single large mass of metastatic melanoma 8 cm in diameter in the transverse colon. Margins were free. There was metastatic melanoma in 1 of 10 pericolonic lymph nodes. Postoperatively, the patient was on Trice ought id analgesics initially. His pain improved and he was able to be slowly converted to oral analgesics. He was tolerating a regular diet comfortable on oral analgesics and able to be discharged in good condition on 07/10/2020. Status at Discharge Functional status at discharge: independent ambulation Overall status at discharge: patient is progressing back to baseline Time Spent with Patient Time attestation: Total time spent providing and/or coordinating discharge services: Time spent: Less than 30 minutes Exam Const: General: comfortable and no acute distress; No confusion Orientation/consciousness: patient oriented x3 and No confusion GI: Inspection: non-distended, incision ( All incisions healing well) and scaphoid GI Palp: Yes Soft to palpation, Yes Tenderness to palpation present (GI) ( minimal and appropriate incisional tenderness), No Guarding due to palpation present (GI) and No Rebound tenderness present Auscultation: normal bowel sounds Neuro: General: patient oriented x3, no focal motor deficits and No confusion Extrem: General: no calf tenderness and no edema Psych: Affect: normal affect Insight: Good insight present (Psych) Judgement: Good judgement present (Psych) DS: Data Data Completed and Pending Completed studies during hospitalization: Pending at discharge 07/07/20 11:18 Surgical [PTH] Routine Labs on day of discharge: Labs from [facility]
[2020-07-10 09:00] VITALS: BP 133/93; PULSE 77; RESP 16; TEMP 36.1; O2SAT 98
[2020-07-10] MEDS: FAMOTIDINE 20 MG TABLET PO (09:06)
[2020-07-10] MEDS: ALVIMOPAN 12 MG CAPSULE PO (09:06)
[2020-07-10] MEDS: POTASSIUM CHLORIDE 20 MEQ TABLET 40 MEQ PO ×2 (09:06→14:04)
[2020-07-10] MEDS: MAGNESIUM OXIDE 200 MG TABLET PO (09:44)
[2020-07-10] MEDS: oxyCODONE/ACETAMINOPHEN (*CRX) 5-325 MG TABLET 1 TABLET PO (09:47)
--- NOTE | 2020-07-10 11:08 | PM.IMPN ---
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 He is now POD#3 s/p right hemicolectomy by Dr Charles 07/08/20. Management per surgery. Treated with IV Zosyn and will discharged with oral Augmentin to complete the Course per surgery recommendations. His leukocytosis is resolved. Pathology from surgery consistent with metastatic cancer, skin primary. He is feeling well and is hemodynamically stable for discharge today, see Dr. Charles's discharge summary. 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 (3) Smoker: Code(s): F17.200 - Nicotine dependence, unspecified, uncomplicated Status: Chronic Assessment and Plan: Smoking cessation imperative. (4) Hypokalemia: Code(s): E87.6 - Hypokalemia Status: Acute Assessment and Plan: Potassium as low as 2.9 this morning, replaced parenterally and oral. Surgery as prescribed him oral potassium supplementation for discharge. I will add on repeat labs for 1 week from now to recheck potassium. Plan to recheck potassium this afternoon prior to discharge. Subjective Date/time seen: 07/10/20 11:08 Interval history: Mr. Marinelli is a 39yo M admitted with abdominal pain now doing well POD#3 s/p right colectomy due to known metastatic mass of the transverse colon. His abdominal pain is improved and he has tolerated a diet without vomiting for over 24 hours. He has passed multiple bowel movements. He slept well last night, ate breakfast this morning, and offers no complaints. He is in good spirits ready to go home. Review of Systems Review of Systems: All systems reviewed & are unremarkable except as noted in HPI and below Exam Narrative: Exam Narrative: General: Male resting comfortably supine in bed in no acute distress. HEENT: Normocephalic, EOMI, oral mucosa moist. Chest: Lungs clear to auscultation in all eason. Respirations are even and nonlabored. Tolerating room air. Heart: Rate and rhythm regular. Abdomen: Soft, mild right abdominal tenderness to very light palpation, incisional sites and smaller midline incision to upper abdomen are clean, dry, intact, bowel sounds hypoactive but present. Skin: Warm, dry, no rashes or lesions noted on limited exam. Extremities: Peripheral pulses intact. No edema or pain to palpation. Neurologic: Awake and alert, answering questions appropriately. No focal neurological deficits are noted. Speech is clear. Psychiatric: Mood and affect are normal. Cooperative and pleasant. Objective Data Vital Signs Vital Signs: Vital Signs - 24 hr 07/09/20 13:50 07/09/20 21:43 07/10/20 09:00 Temperature 99.0 F 97.5 F L 97.0 F L Pulse Rate 67 89 77 Respiratory Rate 16 18 16 Blood Pressure 148/88 H 127/74 133/93 H Pulse Oximetry 97 98 98 Intake/Output Intake/Output: Intake & Output 07/07/20 07/08/20 07/09/20 07/10/20 23:59 23:59 23:59 23:59 Intake Total 2740 4030 2140 850 Output Total 800 600 Balance 1940 3430 2140 850 Meds/Results Medications: Active Medications Generic Name Dose Route Start Last Admin Trade Name Freq PRN Reason Stop Dose Admin Acetaminophen 500 mg 07/07/20 13:45 Acetaminophen 500 Mg Tablet PO Q6H PRN Mild Pain (1-3) or Fever Alvimopan 12 mg 07/08/20 09:00 07/10/20 09:
[2020-07-10 13:32] LABS: Potassium 3.3 mmol/L (3.4-5.0)
== END 2020-07-10 14:20 | disposition home or self-care (01) | DRG 231 ==
LOC: ANHED 20:41 → ANH3MED 23:49
PROVIDERS: Emergency Medicine; Surgery; Admitting Provider Internal Medicine; Emergency Provider General Practice; Visit Provider Physician Assistant
PROC: 0DTF4ZZ Resection of Right Large Intestine, Percutaneous Endoscopic Approach (ICD-10-PCS; CPT 44204; principal; 2020-07-07 10:00)
DX: C78.5 Secondary malignant neoplasm of large intestine and rectum (principal); C43.59 Malignant melanoma of other part of trunk; G89.18 Other acute postprocedural pain; F17.210 Nicotine dependence, cigarettes, uncomplicated; F19.10 Other psychoactive substance abuse, uncomplicated; Z79.899 Other long term (current) drug therapy; E87.6 Hypokalemia
CPT/HCPCS: 36415; 71045; 74177; 80048; 80053; 81001; 83605; 83690; 83735; 84132; 85025; 85027; 88309; 96365; 96375; 99285; A9270; J0330; J1100; J1170; J1650; J1741; J2250; J2405; J2543; J2704; J2710; J3010; J3480; J7030; J7120; Q9967

== ENCOUNTER 2020-08-18 09:45 | Outpatient (CLI) | payer OTHER, SELFPAY ==
[2020-08-18 10:12] LABS: Basophils Absolute Auto 0.1 K/mm3 (0.0-0.1); Basophils Percent Auto 1.1 % (0.2-1.2); Eosinophils Absolute Auto 0.3 K/mm3 (0-0.3); Eosinophils Percent Auto 3.2 % (0-4.4); Hematocrit 45.5 % (42.0-52.0); Immature Granulocyte Absolute 0.02 K/mm3 (0.00-0.031); Immature Granulocyte Percent A 0.2 % (0-0.5); Lymphocytes Absolute Auto 2.07 K/mm3 (0.9-3.2); Lymphocytes Percent Auto 24.6 % (18.3-44.2); Mean Corpuscular Hemoglobin 30.5 pg (26-34); Mean Corpuscular Volume 92.7 fl (80-100); Mean Platelet Volume 9.8 fl (7.4-10.4); Monocytes Absolute Auto 1.3 K/mm3 (0.1-0.6); Neutrophils Absolute Auto 4.7 K/mm3 (1.3-6.7); Neutrophils Percent Auto 55.9 % (45.5-73.1); Platelet Count Result 234 k/mm3 (150-375); Red Blood Count 4.91 M/mm3 (4.6-6.20); Red Cell Distribution Width 13.3 % (11.5-14.5); White Blood Count 8.4 K/mm3 (4.5-10.0)
[2020-08-18 10:27] LABS: Alanine Aminotransferase 20 U/L (4-50); Albumin Level 3.8 g/dL (3.5-5.1); Alkaline Phosphatase 71 U/L (38-126); Anion Gap 7 mmol/L (8-16); Aspartate Amino Transferase 23 U/L (17-59); Bilirubin,Total < 0.1 mg/dL (0.2-1.3); Blood Urea Nitrogen 18 mg/dL (9-20); Carbon Dioxide 28 mmol/L (22-30); Chloride 108 mmol/L (98-107); Estimated Glomerular Filt Rate > 60; Glucose 100 mg/dL (75-110); Potassium 3.6 mmol/L (3.4-5.0); Sodium 143 mmol/L (137-145)
== END 2020-08-18 09:46 | disposition home or self-care (01) ==
PROVIDERS: Visit Provider Internal Medicine Hematology & Oncology
DX: C43.71 Malignant melanoma of right lower limb, including hip (principal)
CPT/HCPCS: 36415; 80053; 85025

== ENCOUNTER 2020-09-17 13:50 | Outpatient (CLI) | payer OTHER, SELFPAY ==
[2020-09-17 14:12] LABS: Basophils Percent Auto 0.4 % (0.2-1.2); Eosinophils Absolute Auto 0.1 K/mm3 (0-0.3); Eosinophils Percent Auto 1.3 % (0-4.4); Hematocrit 45.4 % (42.0-52.0); Hemoglobin 15.5 g/dL (14.0-18.0); Immature Granulocyte Absolute 0.01 K/mm3 (0.00-0.031); Immature Granulocyte Percent A 0.1 % (0-0.5); Lymphocytes Absolute Auto 2.58 K/mm3 (0.9-3.2); Lymphocytes Percent Auto 37.6 % (18.3-44.2); Mean Corpuscular HGB Conc 34.1 g/dl (32-36); Mean Corpuscular Hemoglobin 30.8 pg (26-34); Mean Corpuscular Volume 90.3 fl (80-100); Mean Platelet Volume 9.4 fl (7.4-10.4); Monocytes Absolute Auto 0.8 K/mm3 (0.1-0.6); Monocytes Percent Auto 10.9 % (2.6-8.5); Neutrophils Absolute Auto 3.4 K/mm3 (1.3-6.7); Neutrophils Percent Auto 49.7 % (45.5-73.1); Platelet Count Result 221 k/mm3 (150-375); Red Blood Count 5.03 M/mm3 (4.6-6.20); Red Cell Distribution Width 13.7 % (11.5-14.5); White Blood Count 6.9 K/mm3 (4.5-10.0)
[2020-09-17 14:38] LABS: Alanine Aminotransferase 29 U/L (4-50); Albumin Level 3.7 g/dL (3.5-5.1); Alkaline Phosphatase 85 U/L (38-126); Anion Gap 8 mmol/L (8-16); Aspartate Amino Transferase 31 U/L (17-59); Bilirubin,Total 0.3 mg/dL (0.2-1.3); Blood Urea Nitrogen 15 mg/dL (9-20); Calcium 9.3 mg/dL (8.4-10.2); Carbon Dioxide 27 mmol/L (22-30); Chloride 103 mmol/L (98-107); Estimated Glomerular Filt Rate > 60; Glucose 84 mg/dL (65-110); Potassium 4.1 mmol/L (3.4-5.0); Sodium 138 mmol/L (137-145)
== END 2020-09-17 13:51 | disposition home or self-care (01) ==
LOC: ANHLAB 13:54
PROVIDERS: PCP Internal Medicine Hematology & Oncology; Visit Provider Internal Medicine Hematology & Oncology
DX: C43.71 Malignant melanoma of right lower limb, including hip (principal)
CPT/HCPCS: 36415; 80053; 85025

== ENCOUNTER 2020-10-16 09:31 | Outpatient (CLI) | payer OTHER, SELFPAY ==
[2020-10-16 09:46] LABS: Basophils Percent Auto 0.5 % (0.2-1.2); Eosinophils Absolute Auto 0.1 K/mm3 (0-0.3); Hematocrit 45.6 % (42.0-52.0); Hemoglobin 15.1 g/dL (14.0-18.0); Immature Granulocyte Absolute 0.04 K/mm3 (0.00-0.031); Immature Granulocyte Percent A 0.5 % (0-0.5); Lymphocytes Absolute Auto 1.69 K/mm3 (0.9-3.2); Lymphocytes Percent Auto 21.8 % (18.3-44.2); Mean Corpuscular HGB Conc 33.1 g/dl (32-36); Mean Corpuscular Volume 90.7 fl (80-100); Mean Platelet Volume 8.9 fl (7.4-10.4); Monocytes Absolute Auto 1.1 K/mm3 (0.1-0.6); Monocytes Percent Auto 14.2 % (2.6-8.5); Neutrophils Absolute Auto 4.8 K/mm3 (1.3-6.7); Platelet Count Result 351 k/mm3 (150-375); Red Blood Count 5.03 M/mm3 (4.6-6.20); Red Cell Distribution Width 13.7 % (11.5-14.5); White Blood Count 7.8 K/mm3 (4.5-10.0)
[2020-10-16 10:02] LABS: Blood Urea Nitrogen 17 mg/dL (8-26); Carbon Dioxide 29 mmol/L (22-30); Chloride 100 mmol/L (98-109); Estimated Glomerular Filt Rate > 60; Glucose 113 mg/dL (70-105); Potassium 4.4 mmol/L (3.5-4.9); Sodium 142 mmol/L (138-146)
[2020-10-16 16:24] LABS: Alanine Aminotransferase 35 U/L (4-50); Albumin Level 3.4 g/dL (3.5-5.1); Alkaline Phosphatase 142 U/L (38-126); Anion Gap 6 mmol/L (8-16); Aspartate Amino Transferase 29 U/L (17-59); Bilirubin,Total 0.3 mg/dL (0.2-1.3); Blood Urea Nitrogen 17 mg/dL (9-20); Calcium 9.2 mg/dL (8.4-10.2); Carbon Dioxide 30 mmol/L (22-30); Chloride 103 mmol/L (98-107); Estimated Glomerular Filt Rate > 60; Glucose 114 mg/dL (65-110); Potassium 4.7 mmol/L (3.4-5.0); Sodium 139 mmol/L (137-145)
== END 2020-10-16 09:32 | disposition home or self-care (01) ==
LOC: ANHLAB 09:35
PROVIDERS: PCP Internal Medicine Hematology & Oncology; Visit Provider Internal Medicine Hematology & Oncology
DX: C43.71 Malignant melanoma of right lower limb, including hip (principal)
CPT/HCPCS: 36415; 80048; 80053; 85025

== ENCOUNTER 2020-11-03 08:36 | Outpatient (CLI) | payer OTHER, SELFPAY ==
--- NOTE | ~2020-11-03 | CT_ITS ---
EXAMINATION: CT chest abdomen pelvis w con EXAM DATE: 11/03/2020 09:06 INDICATION: Malignant melanoma. Lump in left armpit . TECHNIQUE: Spiral CT of the chest, abdomen and pelvis was performed following intravenous injection o f 100 mL Omnipaque 350. Axial, coronal and sagittal images chest, abdomen and pelvis were reviewed. Coronal maximum intensity pixel images of chest reviewed. The dose-length product (DLP) for this ex amination was 521.72 mGy-cm. The exposure was tailored according to patient size (auto mA exposure c ontrol), and iterative reconstruction (ASIR) was used as additional dose reduction technique. There is no prior study for comparison. FINDINGS: CHEST: There is some patchy right upper lobe posterior segmental acute appearing airspace disease mo st consistent with pneumonia. I discussed this finding with Jv Cisneros MD at 11/03/2020 15:49 CD T. The lungs are otherwise clear. There are no pleural or pericardial effusions. Tracheobronchial tree is patent. There is no mediastinal, hilar or axillary lymphadenopathy. There is no pneumothorax. Heart normal in size. No evidence of coronary arterial calcification. ABDOMEN PELVIS: Previously seen mass along the transverse colon has been resected, cecal and ascendin g colonic resection as well. There is a mesenteric lymph node adjacent to the surgical site measuring 1.5 x 0.9 cm (axial image 159). No other pathologically enlarged lymph nodes identified. The liver, spleen, adrenal glands and pancreas are unremarkable. Gallbladder is unremarkable. No bi liary obstruction. Portal and splenic veins are patent. Kidneys enhance symmetrically. There is no hydronephrosis. The prostate is unremarkable. The bladder is unremarkable. There is mild sigmoid colonic diverticulosis. There is no adjacent inflammatory change to suggest di verticulitis. The stomach and small bowel are unremarkable. Some low-density loose colonic stool. No free intraperitoneal gas. There are no osteoblastic or osteolytic lesions identified. IMPRESSION: 1. Right upper lobe ill-defined airspace disease likely subsegmental pneumonia. 2. Interval partial colectomy, mass resection. 3. Single mildly enlarged mesenteric lymph node which could be metastatic. 4. Unremarkable left axilla. Reviewed, dictated and finalized at location B. IMPRESSION: 1. Right upper lobe ill-defined airspace disease likely subsegmental pneumonia . 2. Interval partial colectomy, mass resection. 3. Single mildly enlarged mesenteric lymph node which could be metastatic. 4. Unremarkable left axilla.
== END 2020-11-03 08:37 | disposition home or self-care (01) ==
PROVIDERS: PCP Internal Medicine Hematology & Oncology; Visit Provider Internal Medicine Hematology & Oncology
DX: C43.71 Malignant melanoma of right lower limb, including hip (principal); R91.8 Other nonspecific abnormal finding of lung field
CPT/HCPCS: 71260; 74177; Q9967

== ENCOUNTER 2020-12-11 14:24 | Outpatient (RCR) | payer OTHER, SELFPAY ==
[2020-12-11 14:38] LABS: Hematocrit 43.3 % (42.0-52.0); Hemoglobin 14.2 g/dL (14.0-18.0); Mean Corpuscular HGB Conc 32.8 g/dl (32-36); Mean Corpuscular Hemoglobin 29.4 pg (26-34); Mean Corpuscular Volume 89.6 fl (80-100); Mean Platelet Volume 8.9 fl (7.4-10.4); Platelet Count Result 266 k/mm3 (150-375); Red Blood Count 4.83 M/mm3 (4.6-6.20); Red Cell Distribution Width 14.5 % (11.5-14.5); White Blood Count 6.9 K/mm3 (4.5-10.0)
[2020-12-11 15:43] LABS: Alanine Aminotransferase 28 U/L (4-50); Albumin Level 3.6 g/dL (3.5-5.1); Alkaline Phosphatase 164 U/L (38-126); Anion Gap 5 mmol/L (8-16); Aspartate Amino Transferase 27 U/L (17-59); Bilirubin,Total 0.2 mg/dL (0.2-1.3); Blood Urea Nitrogen 20 mg/dL (9-20); Calcium 9.1 mg/dL (8.4-10.2); Carbon Dioxide 29 mmol/L (22-30); Chloride 106 mmol/L (98-107); Estimated Glomerular Filt Rate > 60; Glucose 73 mg/dL (65-110); Potassium 4.3 mmol/L (3.4-5.0); Sodium 140 mmol/L (137-145)
== END 2021-03-11 23:59 | disposition home or self-care (01) ==
LOC: ANHLAB 14:24
PROVIDERS: PCP Internal Medicine Hematology & Oncology; Visit Provider Internal Medicine Hematology & Oncology
DX: C43.71 Malignant melanoma of right lower limb, including hip (principal)
CPT/HCPCS: 36415; 80053; 85027

== ENCOUNTER 2021-01-07 11:24 | Outpatient (CLI) | payer OTHER, SELFPAY ==
[2021-01-07 11:39] LABS: Basophils Percent Auto 0.6 % (0.2-1.2); Eosinophils Absolute Auto 0.1 K/mm3 (0-0.3); Hematocrit 40.7 % (42.0-52.0); Hemoglobin 12.9 g/dL (14.0-18.0); Immature Granulocyte Absolute 0.02 K/mm3 (0.00-0.031); Immature Granulocyte Percent A 0.3 % (0-0.5); Lymphocytes Absolute Auto 1.55 K/mm3 (0.9-3.2); Lymphocytes Percent Auto 23.5 % (18.3-44.2); Mean Corpuscular HGB Conc 31.7 g/dl (32-36); Mean Corpuscular Hemoglobin 28.5 pg (26-34); Mean Corpuscular Volume 89.8 fl (80-100); Mean Platelet Volume 9.3 fl (7.4-10.4); Monocytes Absolute Auto 0.9 K/mm3 (0.1-0.6); Monocytes Percent Auto 13.7 % (2.6-8.5); Neutrophils Percent Auto 59.9 % (45.5-73.1); Platelet Count Result 306 k/mm3 (150-375); Red Blood Count 4.53 M/mm3 (4.6-6.20); Red Cell Distribution Width 14.8 % (11.5-14.5); White Blood Count 6.6 K/mm3 (4.5-10.0)
[2021-01-07 11:43] LABS: Blood Urea Nitrogen 18 mg/dL (8-26); Carbon Dioxide 28 mmol/L (22-30); Chloride 101 mmol/L (98-109); Estimated Glomerular Filt Rate > 60; Glucose 121 mg/dL (70-105); Potassium 4.1 mmol/L (3.5-4.9); Sodium 140 mmol/L (138-146)
[2021-01-07 15:04] LABS: Alanine Aminotransferase 51 U/L (4-50); Albumin Level 3.8 g/dL (3.5-5.1); Alkaline Phosphatase 261 U/L (38-126); Anion Gap 8 mmol/L (8-16); Aspartate Amino Transferase 46 U/L (17-59); Bilirubin,Total 0.2 mg/dL (0.2-1.3); Blood Urea Nitrogen 19 mg/dL (9-20); Calcium 9.5 mg/dL (8.4-10.2); Carbon Dioxide 27 mmol/L (22-30); Chloride 100 mmol/L (98-107); Estimated Glomerular Filt Rate > 60; Glucose 113 mg/dL (65-110); Sodium 135 mmol/L (137-145)
== END 2021-01-07 11:25 | disposition home or self-care (01) ==
LOC: ANHLAB 11:26
PROVIDERS: Visit Provider Internal Medicine Hematology & Oncology
DX: C43.71 Malignant melanoma of right lower limb, including hip (principal)
CPT/HCPCS: 36415; 80048; 80053; 85025

== ENCOUNTER 2021-01-26 12:59 | Outpatient (CLI) | payer OTHER, SELFPAY ==
--- NOTE | ~2021-01-26 | CT_ITS ---
EXAMINATION: CT chest abdomen pelvis w con EXAM DATE: 01/26/2021 13:48 INDICATION: Right lower extremity malignant melanoma. TECHNIQUE: Spiral CT of the chest, abdomen and pelvis was performed following intravenous injection o f 100 mL Omnipaque 350. Axial, coronal and sagittal images chest, abdomen and pelvis were reviewed. Coronal maximum intensity pixel images of chest reviewed. The dose-length product (DLP) for this ex amination was 608.70 mGy-cm. The exposure was tailored according to patient size (auto mA exposure c ontrol), and iterative reconstruction (ASIR) was used as additional dose reduction technique. Compari son is made to prior examination from 11/03/2020. FINDINGS: CHEST: Previously seen right upper lobe pneumonia has resolved. There are no pleural or pericardial effusions. Small amount of opacity in left posteromedial segmental bronchus probably debris. Ther e is no mediastinal, hilar or axillary lymphadenopathy. There is no pneumothorax. Heart normal in size. No evidence of coronary arterial calcification. ABDOMEN PELVIS: The liver, spleen, adrenal glands and pancreas are unremarkable. Gallbladder is unre markable. No biliary obstruction. Portal and splenic veins are patent. Kidneys enhance symmetrical ly. There is no hydronephrosis. Punctate bilateral nephrolithiasis. Several renal hypodensities too small to characterize, statistically most likely cysts. The prostate is unremarkable. The bladder i s unremarkable. Previously described mesenteric mass like region measures 1.4 x 1.0 cm, size and appearance unchanged . Could be hyperenhancing mesenteric lymph node or possibly a postoperative venous varix, is stable c ompared to prior exam. Status post right hemicolectomy with mild wall thickening at the suture line site. The stomach and sm all bowel are unremarkable. There is expected amount of colonic stool. No free intraperitoneal gas . There are no osteoblastic or osteolytic lesions identified. IMPRESSION: 1. Mesenteric mass like density unchanged, metastatic lymph node or possibly postoperative venous va gunnar. 2. Hemicolectomy with mild wall thickening at suture line site, could be postoperative scarring. 3. Attention to both these findings on follow-up. Reviewed, dictated and finalized at location A. RONMENTAL SERVICE AIDE IMPRESSION: 1. Mesenteric mass like density unchanged, metastatic lymph node or possibly p ostoperative venous varix. 2. Hemicolectomy with mild wall thickening at suture line site, could be posto perative scarring. 3. Attention to both these findings on follow-up.
== END 2021-01-26 13:00 | disposition home or self-care (01) ==
LOC: ANHIMG 13:00
PROVIDERS: Visit Provider Internal Medicine Hematology & Oncology
DX: C43.71 Malignant melanoma of right lower limb, including hip (principal)
CPT/HCPCS: 71260; 74177; Q9967

== ENCOUNTER 2021-01-29 10:21 | Outpatient (CLI) | payer OTHER, SELFPAY ==
[2021-01-29 10:42] LABS: Basophils Absolute Auto 0.1 K/mm3 (0.0-0.1); Basophils Percent Auto 0.9 % (0.2-1.2); Eosinophils Absolute Auto 0.3 K/mm3 (0-0.3); Eosinophils Percent Auto 6.3 % (0-4.4); Hematocrit 43.4 % (42.0-52.0); Immature Granulocyte Absolute 0.01 K/mm3 (0.00-0.031); Immature Granulocyte Percent A 0.2 % (0-0.5); Lymphocytes Absolute Auto 1.41 K/mm3 (0.9-3.2); Lymphocytes Percent Auto 26.2 % (18.3-44.2); Mean Corpuscular HGB Conc 32.3 g/dl (32-36); Mean Corpuscular Hemoglobin 29.6 pg (26-34); Mean Corpuscular Volume 91.8 fl (80-100); Mean Platelet Volume 9.4 fl (7.4-10.4); Monocytes Percent Auto 18.6 % (2.6-8.5); Neutrophils Absolute Auto 2.6 K/mm3 (1.3-6.7); Neutrophils Percent Auto 47.8 % (45.5-73.1); Platelet Count Result 217 k/mm3 (150-375); Red Blood Count 4.73 M/mm3 (4.6-6.20); Red Cell Distribution Width 15.5 % (11.5-14.5); White Blood Count 5.4 K/mm3 (4.5-10.0)
[2021-01-29 10:46] LABS: Blood Urea Nitrogen 16 mg/dL (8-26); Carbon Dioxide 26 mmol/L (22-30); Chloride 100 mmol/L (98-109); Estimated Glomerular Filt Rate > 60; Glucose 121 mg/dL (70-105); Potassium 4.1 mmol/L (3.5-4.9); Sodium 139 mmol/L (138-146)
[2021-01-29 12:37] LABS: Alanine Aminotransferase 23 U/L (4-50); Albumin Level 3.9 g/dL (3.5-5.1); Alkaline Phosphatase 116 U/L (38-126); Anion Gap 7 mmol/L (8-16); Aspartate Amino Transferase 34 U/L (17-59); Bilirubin,Total 0.2 mg/dL (0.2-1.3); Blood Urea Nitrogen 16 mg/dL (9-20); Calcium 8.9 mg/dL (8.4-10.2); Carbon Dioxide 26 mmol/L (22-30); Chloride 100 mmol/L (98-107); Estimated Glomerular Filt Rate > 60; Glucose 124 mg/dL (65-110); Potassium 4.1 mmol/L (3.4-5.0); Sodium 133 mmol/L (137-145)
== END 2021-01-29 10:22 | disposition home or self-care (01) ==
PROVIDERS: Visit Provider Internal Medicine Hematology & Oncology
DX: C43.71 Malignant melanoma of right lower limb, including hip (principal)
CPT/HCPCS: 36415; 80053; 82374; 82435; 82565; 82947; 84132; 84295; 84520; 85025

== ENCOUNTER 2021-03-04 10:24 | Outpatient (CLI) | payer OTHER, SELFPAY ==
[2021-03-04 10:39] LABS: Basophils Absolute Auto 0.1 K/mm3 (0.0-0.1); Basophils Percent Auto 0.9 % (0.2-1.2); Eosinophils Absolute Auto 0.3 K/mm3 (0-0.3); Eosinophils Percent Auto 4.6 % (0-4.4); Hematocrit 41.9 % (42.0-52.0); Hemoglobin 13.3 g/dL (14.0-18.0); Immature Granulocyte Absolute 0.01 K/mm3 (0.00-0.031); Immature Granulocyte Percent A 0.2 % (0-0.5); Lymphocytes Absolute Auto 1.64 K/mm3 (0.9-3.2); Lymphocytes Percent Auto 25.2 % (18.3-44.2); Mean Corpuscular HGB Conc 31.7 g/dl (32-36); Mean Corpuscular Hemoglobin 28.7 pg (26-34); Mean Corpuscular Volume 90.5 fl (80-100); Mean Platelet Volume 9.1 fl (7.4-10.4); Monocytes Absolute Auto 0.9 K/mm3 (0.1-0.6); Neutrophils Absolute Auto 3.6 K/mm3 (1.3-6.7); Neutrophils Percent Auto 55.1 % (45.5-73.1); Platelet Count Result 256 k/mm3 (150-375); Red Blood Count 4.63 M/mm3 (4.6-6.20); Red Cell Distribution Width 14.8 % (11.5-14.5); White Blood Count 6.5 K/mm3 (4.5-10.0)
[2021-03-04 10:42] LABS: Blood Urea Nitrogen 21 mg/dL (8-26); Carbon Dioxide 28 mmol/L (22-30); Chloride 101 mmol/L (98-109); Estimated Glomerular Filt Rate > 60; Glucose 127 mg/dL (70-105); Potassium 4.1 mmol/L (3.5-4.9); Sodium 140 mmol/L (138-146)
[2021-03-04 11:21] LABS: Alanine Aminotransferase 27 U/L (4-50); Albumin Level 3.7 g/dL (3.5-5.1); Alkaline Phosphatase 115 U/L (38-126); Anion Gap 7 mmol/L (8-16); Aspartate Amino Transferase 34 U/L (17-59); Bilirubin,Total 0.2 mg/dL (0.2-1.3); Blood Urea Nitrogen 20 mg/dL (9-20); Carbon Dioxide 27 mmol/L (22-30); Chloride 104 mmol/L (98-107); Estimated Glomerular Filt Rate > 60; Glucose 127 mg/dL (65-110); Potassium 4.1 mmol/L (3.4-5.0); Sodium 138 mmol/L (137-145)
== END 2021-03-04 10:25 | disposition home or self-care (01) ==
LOC: ANHLAB 10:26
PROVIDERS: Visit Provider Internal Medicine Hematology & Oncology
DX: C43.71 Malignant melanoma of right lower limb, including hip (principal)
CPT/HCPCS: 36415; 80053; 85025

== ENCOUNTER 2021-05-04 09:46 | Outpatient (CLI) | payer OTHER, SELFPAY ==
[2021-05-04 10:01] LABS: Basophils Absolute Auto 0.1 K/mm3 (0.0-0.1); Basophils Percent Auto 0.7 % (0.2-1.2); Eosinophils Absolute Auto 0.3 K/mm3 (0-0.3); Eosinophils Percent Auto 3.6 % (0-4.4); Hematocrit 41.2 % (42.0-52.0); Hemoglobin 12.6 g/dL (14.0-18.0); Immature Granulocyte Absolute 0.02 K/mm3 (0.00-0.031); Immature Granulocyte Percent A 0.3 % (0-0.5); Lymphocytes Absolute Auto 1.52 K/mm3 (0.9-3.2); Lymphocytes Percent Auto 21.8 % (18.3-44.2); Mean Corpuscular HGB Conc 30.6 g/dl (32-36); Mean Corpuscular Hemoglobin 27.9 pg (26-34); Mean Corpuscular Volume 91.2 fl (80-100); Mean Platelet Volume 9.4 fl (7.4-10.4); Monocytes Absolute Auto 0.9 K/mm3 (0.1-0.6); Monocytes Percent Auto 12.5 % (2.6-8.5); Neutrophils Absolute Auto 4.3 K/mm3 (1.3-6.7); Neutrophils Percent Auto 61.1 % (45.5-73.1); Platelet Count Result 264 k/mm3 (150-375); Red Blood Count 4.52 M/mm3 (4.6-6.20); Red Cell Distribution Width 15.9 % (11.5-14.5)
[2021-05-04 10:05] LABS: Blood Urea Nitrogen 19 mg/dL (8-26); Carbon Dioxide 31 mmol/L (22-30); Chloride 102 mmol/L (98-109); Estimated Glomerular Filt Rate > 60; Glucose 112 mg/dL (70-105); Potassium 4.3 mmol/L (3.5-4.9); Sodium 144 mmol/L (138-146)
[2021-05-04 12:01] LABS: Alanine Aminotransferase 33 U/L (4-50); Albumin Level 3.4 g/dL (3.5-5.1); Alkaline Phosphatase 105 U/L (38-126); Anion Gap 5 mmol/L (8-16); Aspartate Amino Transferase 36 U/L (17-59); Bilirubin,Total 0.2 mg/dL (0.2-1.3); Blood Urea Nitrogen 19 mg/dL (9-20); Calcium 8.5 mg/dL (8.4-10.2); Carbon Dioxide 30 mmol/L (22-30); Chloride 107 mmol/L (98-107); Estimated Glomerular Filt Rate > 60; Glucose 122 mg/dL (65-110); Potassium 4.2 mmol/L (3.4-5.0); Sodium 142 mmol/L (137-145)
== END 2021-05-04 09:47 | disposition home or self-care (01) ==
LOC: ANHLAB 09:47
PROVIDERS: Visit Provider Internal Medicine Hematology & Oncology
DX: C43.71 Malignant melanoma of right lower limb, including hip (principal)
CPT/HCPCS: 36415; 80053; 85025

== ENCOUNTER 2021-06-08 09:53 | Outpatient (CLI) | payer OTHER, SELFPAY ==
--- NOTE | ~2021-06-08 | CT_ITS ---
EXAMINATION: CT abdomen pelvis w con EXAM DATE: 06/08/2021 10:15 INDICATION: Melanoma of the right lower extremity, malignancy. TECHNIQUE: Spiral CT of the abdomen and pelvis was performed following intravenous injection of 100 m L Omnipaque 350. Axial, coronal and sagittal images of the abdomen and pelvis were reviewed. The do se-length product (DLP) for this examination was 581.79 mGy-cm. The exposure was tailored according to patient size (auto mA exposure control), and iterative reconstruction (ASIR) was used as additiona l dose reduction technique. Comparison is made to prior examination from 01/26/2021, 11/03/2020. FINDINGS: Previously described hyperenhancing mesenteric mass like density is reidentified, measured on axial image 89 at 1.7 x 1.2 cm (previous dimensions 1.4 x 1.0) and 114 Hounsfield units. No retrop eritoneal, pelvic or inguinal lymphadenopathy. There is right hemicolectomy. Unremarkable ileocolic a nastomosis site. The stomach and small bowel are unremarkable. There is expected amount of colonic s tool. The liver, spleen, adrenal glands and pancreas are unremarkable. Gallbladder is unremarkable. No bi liary obstruction. Portal and splenic veins are patent. Kidneys enhance symmetrically. There is no hydronephrosis. Small bilateral nephrolithiasis up to 3 mm. No ureteral stones. The prostate is unrem arkable. The bladder is unremarkable. No free intraperitoneal gas. The heart is normal in size. There are no pericardial or pleural effu sions. The lung bases are unremarkable. There are no osteoblastic or osteolytic lesions identified. IMPRESSION: 1. Mesenteric mass adjacent to right hemicolectomy site, slight interval increase in size. Could be metastatic lymph node. 2. Bilateral nephrolithiasis. 3. Right hemicolectomy. Reviewed, dictated and finalized at location A. IMPRESSION: 1. Mesenteric mass adjacent to right hemicolectomy site, slight interval incre ase in size. Could be metastatic lymph node. 2. Bilateral nephrolithiasis. 3. Right hemicolectomy.
== END 2021-06-08 09:54 | disposition home or self-care (01) ==
LOC: ANHIMG 09:55
PROVIDERS: PCP Internal Medicine Hematology & Oncology; Visit Provider Internal Medicine Hematology & Oncology
DX: C43.71 Malignant melanoma of right lower limb, including hip (principal); N20.0 Calculus of kidney
CPT/HCPCS: 74177; Q9967

== ENCOUNTER 2021-06-15 11:06 | Outpatient (CLI) | payer OTHER, SELFPAY ==
[2021-06-15 11:16] LABS: Basophils Absolute Auto 0.1 K/mm3 (0.0-0.1); Basophils Percent Auto 0.8 % (0.2-1.2); Eosinophils Absolute Auto 0.1 K/mm3 (0-0.3); Eosinophils Percent Auto 1.8 % (0-4.4); Hemoglobin 13.2 g/dL (14.0-18.0); Immature Granulocyte Absolute 0.02 K/mm3 (0.00-0.031); Immature Granulocyte Percent A 0.3 % (0-0.5); Lymphocytes Absolute Auto 1.46 K/mm3 (0.9-3.2); Lymphocytes Percent Auto 23.7 % (18.3-44.2); Mean Corpuscular HGB Conc 31.4 g/dl (32-36); Mean Platelet Volume 8.7 fl (7.4-10.4); Monocytes Absolute Auto 0.9 K/mm3 (0.1-0.6); Monocytes Percent Auto 14.8 % (2.6-8.5); Neutrophils Absolute Auto 3.6 K/mm3 (1.3-6.7); Neutrophils Percent Auto 58.6 % (45.5-73.1); Platelet Count Result 361 k/mm3 (150-375); Red Blood Count 4.72 M/mm3 (4.6-6.20); Red Cell Distribution Width 16.4 % (11.5-14.5); White Blood Count 6.2 K/mm3 (4.5-10.0)
[2021-06-15 11:21] LABS: Blood Urea Nitrogen 17 mg/dL (8-26); Carbon Dioxide 30 mmol/L (22-30); Chloride 103 mmol/L (98-109); Estimated Glomerular Filt Rate 52; Glucose 106 mg/dL (70-105); Ionized Calcium (POC) 1.21 mmol/L (1.11-1.31); Potassium 4.1 mmol/L (3.5-4.9); Sodium 142 mmol/L (138-146)
[2021-06-15 15:04] LABS: Alanine Aminotransferase 32 U/L (4-50); Albumin Level 3.8 g/dL (3.5-5.1); Alkaline Phosphatase 146 U/L (38-126); Anion Gap 4 mmol/L (8-16); Aspartate Amino Transferase 36 U/L (17-59); Bilirubin,Total < 0.1 mg/dL (0.2-1.3); Blood Urea Nitrogen 18 mg/dL (9-20); Calcium 8.9 mg/dL (8.4-10.2); Carbon Dioxide 32 mmol/L (22-30); Chloride 104 mmol/L (98-107); Estimated Glomerular Filt Rate 52; Glucose 107 mg/dL (65-110); Potassium 4.1 mmol/L (3.4-5.0); Sodium 140 mmol/L (137-145)
== END 2021-06-15 11:07 | disposition home or self-care (01) ==
LOC: ANHLAB 11:07
PROVIDERS: PCP Internal Medicine Hematology & Oncology; Visit Provider Internal Medicine Hematology & Oncology
DX: C43.71 Malignant melanoma of right lower limb, including hip (principal)
CPT/HCPCS: 36415; 80047; 80053; 85025

== ENCOUNTER 2021-07-29 14:01 | Outpatient (CLI) | payer OTHER, SELFPAY ==
[2021-07-29 14:15] LABS: Basophils Absolute Auto 0.1 K/mm3 (0.0-0.1); Basophils Percent Auto 0.7 % (0.2-1.2); Eosinophils Absolute Auto 0.1 K/mm3 (0-0.3); Hematocrit 39.2 % (42.0-52.0); Hemoglobin 12.6 g/dL (14.0-18.0); Immature Granulocyte Absolute 0.02 K/mm3 (0.00-0.031); Immature Granulocyte Percent A 0.3 % (0-0.5); Lymphocytes Percent Auto 20.9 % (18.3-44.2); Mean Corpuscular HGB Conc 32.1 g/dl (32-36); Mean Corpuscular Hemoglobin 28.2 pg (26-34); Mean Corpuscular Volume 87.7 fl (80-100); Mean Platelet Volume 9.4 fl (7.4-10.4); Monocytes Absolute Auto 0.8 K/mm3 (0.1-0.6); Neutrophils Absolute Auto 4.7 K/mm3 (1.3-6.7); Neutrophils Percent Auto 65.1 % (45.5-73.1); Platelet Count Result 245 k/mm3 (150-375); Red Blood Count 4.47 M/mm3 (4.6-6.20); Red Cell Distribution Width 16.3 % (11.5-14.5); White Blood Count 7.2 K/mm3 (4.5-10.0)
[2021-07-29 14:19] LABS: Blood Urea Nitrogen 16 mg/dL (8-26); Carbon Dioxide 28 mmol/L (22-30); Chloride 99 mmol/L (98-109); Estimated Glomerular Filt Rate > 60; Glucose 118 mg/dL (70-105); Ionized Calcium (POC) 1.25 mmol/L (1.11-1.31); Sodium 138 mmol/L (138-146)
[2021-07-29 16:31] LABS: Alanine Aminotransferase 23 U/L (6-50); Albumin Level 3.6 g/dL (3.5-5.1); Alkaline Phosphatase 87 U/L (38-126); Anion Gap 4 mmol/L (8-16); Aspartate Amino Transferase 31 U/L (17-59); Bilirubin,Total < 0.1 mg/dL (0.2-1.3); Blood Urea Nitrogen 16 mg/dL (9-20); Calcium 8.6 mg/dL (8.4-10.2); Carbon Dioxide 31 mmol/L (22-30); Chloride 102 mmol/L (98-107); Estimated Glomerular Filt Rate > 60; Glucose 120 mg/dL (65-110); Potassium 3.9 mmol/L (3.4-5.0); Sodium 137 mmol/L (137-145)
== END 2021-07-29 14:02 | disposition home or self-care (01) ==
LOC: ANHLAB 14:02
PROVIDERS: PCP Internal Medicine Hematology & Oncology; Visit Provider Internal Medicine Hematology & Oncology
DX: C43.71 Malignant melanoma of right lower limb, including hip (principal)
CPT/HCPCS: 36415; 80047; 80053; 85025

== ENCOUNTER 2021-09-06 15:32 | Outpatient (CLI) | payer OTHER, SELFPAY ==
--- NOTE | ~2021-09-06 | CT_ITS ---
EXAMINATION: CT abdomen pelvis w con DATE: 09/06/2021 16:13 INDICATION: Right lower extremity melanoma TECHNIQUE: Computed tomography (CT) of the abdomen and pelvis was performed with 100 CC Omnipaque 300 intravenous contrast. Automated exposure control and iterative reconstruction technique were employe d. Exam dose: 519.27 mGy-cm total exam DLP. COMPARISON: 06/08/2021 CT abdomen pelvis FINDINGS: The lung bases are clear. Normal heart size. No pericardial or pleural effusion. The liver, gallbladder, bile ducts, spleen, pancreas, pancreatic duct, and adrenal glands are unremar kable. 1 cm upper pole right renal cyst. Occasional bilateral nonobstructing small calculi. No ureteral calc ulus or hydroureteronephrosis. The urinary bladder and prostate gland are unremarkable. Status post right colectomy. Mild sigmoid colon diverticulosis; no evidence of diverticulitis. No bow el obstruction or intraperitoneal free air. Normal caliber of the abdominal aorta. 12 x 14.5 mm soft tissue nodule within the mesentery in the medial right upper quadrant (series 3 deepali ge 60). Otherwise no intraperitoneal or retroperitoneal or pelvic mass lesion or adenopathy or ascite s. No suspicious osteolytic or osteosclerotic lesions. IMPRESSION: Interval enlarged medial right upper quadrant mesenteric lymph node, measuring 12 x 14.5 mm; otherwise no other abdominal or pelvic mass lesion or lymphadenopathy is noted Bilateral nonobstructing small renal calculi 1 cm right renal cyst Status post right colectomy Reviewed, dictated and finalized at Location A. Reviewed, dictated and finalized at location B. IMPRESSION: Interval enlarged medial right upper quadrant mesenteric lymph node , measuring 12 x 14.5 mm; otherwise no other abdominal or pelvic mass lesion or lymphadenopathy is noted Bilateral nonobstructing small renal calculi 1 cm right renal cyst Status post right colectomy
[2021-09-06 16:05] LABS: Estimated Glomerular Filt Rate > 60
== END 2021-09-06 15:33 | disposition home or self-care (01) ==
PROVIDERS: PCP Internal Medicine Hematology & Oncology; Visit Provider Internal Medicine Hematology & Oncology
DX: C43.71 Malignant melanoma of right lower limb, including hip (principal); N20.0 Calculus of kidney; N28.1 Cyst of kidney, acquired
CPT/HCPCS: 74177; Q9967

== ENCOUNTER 2021-09-17 10:33 | Outpatient (CLI) | payer OTHER, SELFPAY ==
[2021-09-17 11:01] LABS: Basophils Absolute Auto 0.1 K/mm3 (0.0-0.1); Eosinophils Absolute Auto 0.2 K/mm3 (0-0.3); Eosinophils Percent Auto 3.2 % (0-4.4); Hematocrit 39.8 % (42.0-52.0); Hemoglobin 12.9 g/dL (14.0-18.0); Immature Granulocyte Absolute 0.02 K/mm3 (0.00-0.031); Immature Granulocyte Percent A 0.3 % (0-0.5); Lymphocytes Absolute Auto 1.77 K/mm3 (0.9-3.2); Lymphocytes Percent Auto 28.7 % (18.3-44.2); Mean Corpuscular HGB Conc 32.4 g/dl (32-36); Mean Corpuscular Hemoglobin 28.6 pg (26-34); Mean Corpuscular Volume 88.2 fl (80-100); Monocytes Percent Auto 15.4 % (2.6-8.5); Neutrophils Absolute Auto 3.2 K/mm3 (1.3-6.7); Neutrophils Percent Auto 51.4 % (45.5-73.1); Platelet Count Result 227 k/mm3 (150-375); Red Blood Count 4.51 M/mm3 (4.6-6.20); Red Cell Distribution Width 14.9 % (11.5-14.5); White Blood Count 6.2 K/mm3 (4.5-10.0)
[2021-09-17 11:05] LABS: Blood Urea Nitrogen 17 mg/dL (8-26); Carbon Dioxide 25 mmol/L (22-30); Chloride 104 mmol/L (98-109); Estimated Glomerular Filt Rate > 60; Glucose 96 mg/dL (70-105); Ionized Calcium (POC) 1.21 mmol/L (1.11-1.31); Potassium 3.6 mmol/L (3.5-4.9); Sodium 140 mmol/L (138-146)
[2021-09-17 12:33] LABS: Alanine Aminotransferase 60 U/L (6-50); Albumin Level 3.4 g/dL (3.5-5.1); Alkaline Phosphatase 95 U/L (38-126); Anion Gap 9 mmol/L (8-16); Aspartate Amino Transferase 55 U/L (17-59); Bilirubin,Total 0.1 mg/dL (0.2-1.3); Blood Urea Nitrogen 18 mg/dL (9-20); Calcium 8.6 mg/dL (8.4-10.2); Carbon Dioxide 25 mmol/L (22-30); Chloride 105 mmol/L (98-107); Estimated Glomerular Filt Rate > 60; Glucose 98 mg/dL (65-110); Potassium 3.6 mmol/L (3.4-5.0); Sodium 139 mmol/L (137-145)
== END 2021-09-17 10:34 | disposition home or self-care (01) ==
LOC: ANHLAB 10:34
PROVIDERS: PCP Internal Medicine Hematology & Oncology; Visit Provider Internal Medicine Hematology & Oncology
DX: C43.71 Malignant melanoma of right lower limb, including hip (principal)
CPT/HCPCS: 36415; 80047; 80053; 85025

== ENCOUNTER 2021-11-19 10:29 | Outpatient (CLI) | payer OTHER, SELFPAY ==
[2021-11-19 10:44] LABS: Basophils Absolute Auto 0.1 K/mm3 (0.0-0.1); Basophils Percent Auto 0.7 % (0.2-1.2); Eosinophils Absolute Auto 0.2 K/mm3 (0-0.3); Eosinophils Percent Auto 2.1 % (0-4.4); Hematocrit 42.9 % (42.0-52.0); Hemoglobin 13.9 g/dL (14.0-18.0); Immature Granulocyte Absolute 0.02 K/mm3 (0.00-0.031); Immature Granulocyte Percent A 0.3 % (0-0.5); Lymphocytes Absolute Auto 1.61 K/mm3 (0.9-3.2); Lymphocytes Percent Auto 22.8 % (18.3-44.2); Mean Corpuscular HGB Conc 32.4 g/dl (32-36); Mean Corpuscular Hemoglobin 28.9 pg (26-34); Mean Corpuscular Volume 89.2 fl (80-100); Mean Platelet Volume 9.8 fl (7.4-10.4); Monocytes Percent Auto 14.3 % (2.6-8.5); Neutrophils Absolute Auto 4.2 K/mm3 (1.3-6.7); Neutrophils Percent Auto 59.8 % (45.5-73.1); Platelet Count Result 268 k/mm3 (150-375); Red Blood Count 4.81 M/mm3 (4.6-6.20); Red Cell Distribution Width 14.6 % (11.5-14.5); White Blood Count 7.1 K/mm3 (4.5-10.0)
[2021-11-19 10:48] LABS: Blood Urea Nitrogen 15 mg/dL (8-26); Carbon Dioxide 27 mmol/L (22-30); Chloride 104 mmol/L (98-109); Estimated Glomerular Filt Rate > 60; Glucose 113 mg/dL (70-105); Ionized Calcium (POC) 1.26 mmol/L (1.11-1.31); Potassium 4.3 mmol/L (3.5-4.9); Sodium 143 mmol/L (138-146)
[2021-11-19 14:48] LABS: Alanine Aminotransferase 44 U/L (6-50); Albumin Level 3.6 g/dL (3.5-5.1); Alkaline Phosphatase 106 U/L (38-126); Anion Gap 7 mmol/L (8-16); Aspartate Amino Transferase 39 U/L (17-59); Bilirubin,Total 0.2 mg/dL (0.2-1.3); Blood Urea Nitrogen 17 mg/dL (9-20); Calcium 8.8 mg/dL (8.4-10.2); Carbon Dioxide 27 mmol/L (22-30); Chloride 106 mmol/L (98-107); Estimated Glomerular Filt Rate > 60; Glucose 112 mg/dL (65-110); Potassium 4.2 mmol/L (3.4-5.0); Sodium 140 mmol/L (137-145)
== END 2021-11-19 10:30 | disposition home or self-care (01) ==
LOC: ANHLAB 10:30
PROVIDERS: PCP Internal Medicine Hematology & Oncology; Visit Provider Internal Medicine Hematology & Oncology
DX: C43.71 Malignant melanoma of right lower limb, including hip (principal)
CPT/HCPCS: 36415; 80047; 80053; 85025

== ENCOUNTER 2021-11-24 03:56 | Emergency (ER) | payer OTHER, SELFPAY ==
--- NOTE | ~2021-11-24 | CT_ITS ---
EXAMINATION: CT abdomen pelvis w con DATE: 11/24/2021 08:25 INDICATION: Body aches. Cramping. History of melanoma. TECHNIQUE: Computed tomography (CT) of the abdomen and pelvis was performed with 100 cc Omnipaque 350 intravenous contrast. The dose-length product was 408.03 mGy-cm. Automated exposure control and iterative reconstruction technique were employed. COMPARISON: CT dated 09/06/2021. FINDINGS: Heart size normal. No significant pleural or pericardial effusion. No pulmonary nodules or masses in the lower lungs. No significant vascular abnormality. No lymphadenopathy. Enlarging right u pper abdominal mesenteric lymph node measuring 1.8 x 1.3 cm compared with 1.4 x 1.2 cm on prior exami nation. Fatty infiltration of the liver. The spleen, pancreas, adrenal glands are unremarkable. There are non obstructing bilateral renal stones. No significant hydronephrosis. Bladder is decompressed. Gallbladd er is present. Nonobstructive bowel gas pattern. There is a 1 cm right renal cyst. There are surgical changes consistent with right hemicolectomy. No free air or free fluid. No focal lytic or blastic le sions. No acute osseous abnormality. IMPRESSION: 1. Enlarging right upper abdominal mesenteric lymph node with maximum measurement of 1.8 cm, suspicio us for metastatic disease. 2: Nonobstructing bilateral nephrolithiasis. Reviewed, dictated and finalized at location B. IMPRESSION: 1. Enlarging right upper abdominal mesenteric lymph node with maximum measureme nt of 1.8 cm, suspicious for metastatic disease. 2: Nonobstructing bilateral nephrolithiasis.
[2021-11-24 04:02] VITALS: BP 174/123; PULSE 88; RESP 18; TEMP 36.6; O2SAT 100
[2021-11-24 04:05] VITALS: BP 185/112
--- NOTE | 2021-11-24 04:08 | PC.NURSE ---
Pt requests Emergency Contact be recorded in pt's chart Rhiannon Sun [phone]
[2021-11-24 05:18] LABS: Influenza A QL RT-PCR Negative (Negative); Influenza B QL RT-PCR Negative (Negative); SARS-CoV-2 RNA PCR Negative
--- NOTE | 2021-11-24 05:26 | ED.GENADULT ---
HPI - General Adult General Chief complaint: Unspecified Stated complaint: cold/hot chills, sore throat, blurred vision Time Seen by Provider: 11/24/21 04:02 History of Present Illness HPI narrative: 40-year-old male with a history of melanoma presenting the emergency department for evaluation of worsening abdominal pain. Patient states he has been following up with Dr. Cisneros and is on oral chemotherapy. Patient reports he has been having increased abdominal pain over the last few days and does attribute it to the metastatic spread into his abdomen. Related Data Home Medications Medication Instructions Recorded Confirmed ibuprofen 600 mg tablet 600 mg PO BID PRN Pain 07/06/20 07/27/20 zolpidem 6.25 mg tablet,extended 6.25 mg PO HS 07/06/20 07/27/20 release,multiphase alprazolam 1 mg tablet 1 mg 11/24/21 dabrafenib 75 mg capsule (Tafinlar) 75 mg PO 11/24/21 Allergies Allergy/AdvReac Type Severity Reaction Status Date / Time codeine AdvReac Intermediate Nausea and Verified 11/24/21 07:52 Vomiting,DIZZY Review of Systems Review of Systems: CONSTITUTIONAL: Denies fever, chills, or sweats. EYES: Denies visual changes, redness, or discharge. ENT: Denies rhinorrhea, congestion, sore throat, or otalgia. CARDIOVASCULAR: Denies chest pain, palpitations, or edema. RESPIRATORY: Denies cough or dyspnea. GASTROINTESTINAL: See HPI GENITOURINARY: Denies dysuria or hematuria. SKIN: Denies rash or itching. MUSCULOSKELETAL: Denies back pain, joint pain, or myalgia. NEUROLOGIC: Denies headache, numbness, or weakness. PSYCHIATRIC: Denies anxiety or depression. 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 Melanoma of buttock Polysubstance (excluding opioids) dependence Surgical History Surgical History H/O right hemicolectomy 07/07/[address] Charles - for removal of metastatic mass to transverse colon with suspected microperforation History of colonoscopy History of forearm fracture with repair an reconstruction History of melanoma excision Incisional biopsy right buttock 05/21/20 Wide excision right gluteal melanoma 13cm 06/05/20 Family History Family History Father Heart attack Mother CKD (chronic kidney disease) Heart attack Grandparent Diabetes mellitus Heart disease Hypertension Cerebrovascular accident Colon cancer Social History Social History Smoking packs per day: 1 Smoking cigarettes per day: 20.0 Years smoked: 15 Smoking pack-years: 15.00 Tobacco type: cigarettes Second hand tobacco smoke exposure: Yes Alcohol intake: former Drinks per week: 42 Alcohol use details: PT STATES HE QUIT DRINKING 3 WEEKS AGO Substance use: current Substance use type: marijuana Other substance usage details: every day Last use: 07/06/20 Gender identity (if verbalized by the patient): Male Spiritual care concerns: No Exam Narrative: APPEARANCE: Well appearing, no pain, no distress, well-nourished. HEAD: normocephalic, atraumatic. EYES: PERRLA/EOMI, conjunctivae clear. NOSE: Normal no drainage EARS:TMS clear with good light reflex. RESPIRATORY: Airway patent, respirations nonlabored. Clear to auscultation bilaterally, no rales, rhonchi, wheezing. CARDIOVASCULAR: Regular rate and rhythm without murmurs rubs or gallops. ABDOMINAL: Soft, left lower quadrant tenderness to palpation MUSCULOSKELETAL: Moves all extremities. Strength/ROM intact, No edema, No calf tenderness. NEURO: Alert. Cranial nerves II through XII intact. Grossly intact SKIN: Warm, dry. Normal Color PSYCHIATRIC: Normal affect/mood. Course Course Emergency Course: Patient's influenza and COVID were negative. Labs and CT are pending at time of signout to Dr Samano
[2021-11-24 05:41] VITALS: PULSE 80
[2021-11-24] MEDS: SODIUM CHLORIDE 0.9% IV 1,000 ML 999 ML IV CONT (07:37)
[2021-11-24] MEDS: KETOROLAC 15 MG/ML VIAL (*BKC) IV PUSH (07:38)
[2021-11-24 07:54] LABS: Lactic Acid Reflex 0.8 mmol/L (0.7-2.0)
[2021-11-24 07:56] LABS: Alanine Aminotransferase 35 U/L (6-50); Albumin Level 3.7 g/dL (3.5-5.1); Alkaline Phosphatase 93 U/L (38-126); Anion Gap 5 mmol/L (8-16); Aspartate Amino Transferase 41 U/L (17-59); Bilirubin,Total 0.2 mg/dL (0.2-1.3); Blood Urea Nitrogen 14 mg/dL (9-20); Calcium 8.4 mg/dL (8.4-10.2); Carbon Dioxide 28 mmol/L (22-30); Chloride 107 mmol/L (98-107); Estimated CRCL calculation 87 ml/min; Estimated Glomerular Filt Rate > 60; Glucose 104 mg/dL (65-110); Potassium 3.8 mmol/L (3.4-5.0); Sodium 140 mmol/L (137-145)
[2021-11-24 08:01] LABS: Basophils Percent Auto 0.5 % (0.2-1.2); Eosinophils Absolute Auto 0.1 K/mm3 (0-0.3); Eosinophils Percent Auto 1.8 % (0-4.4); Hematocrit 41.3 % (42.0-52.0); Hemoglobin 13.3 g/dL (14.0-18.0); Immature Granulocyte Absolute 0.02 K/mm3 (0.00-0.031); Immature Granulocyte Percent A 0.3 % (0-0.5); Lymphocytes Absolute Auto 1.45 K/mm3 (0.9-3.2); Lymphocytes Percent Auto 18.6 % (18.3-44.2); Mean Corpuscular HGB Conc 32.2 g/dl (32-36); Mean Corpuscular Volume 90.2 fl (80-100); Mean Platelet Volume 10.2 fl (7.4-10.4); Monocytes Absolute Auto 1.1 K/mm3 (0.1-0.6); Monocytes Percent Auto 14.2 % (2.6-8.5); Neutrophils Absolute Auto 5.1 K/mm3 (1.3-6.7); Neutrophils Percent Auto 64.6 % (45.5-73.1); Platelet Count Result 245 k/mm3 (150-375); Red Blood Count 4.58 M/mm3 (4.6-6.20); Red Cell Distribution Width 15.3 % (11.5-14.5); White Blood Count 7.8 K/mm3 (4.5-10.0)
[2021-11-24] MEDS: oxyCODONE/ACETAMINOPHEN (*CRX) 5-325 MG TABLET 1 TABLET PO (09:07)
[2021-11-24] MEDS: ALPRAZolam (*CRX) 0.5 MG TABLET PO (09:08)
[2021-11-24 09:09] VITALS: BP 131/87; PULSE 76; RESP 16; O2SAT 99
== END 2021-11-24 10:38 | disposition home or self-care (01) ==
PROVIDERS: Emergency Medicine; Emergency Provider Emergency Medicine; PCP Internal Medicine Hematology & Oncology
DX: R10.9 Unspecified abdominal pain (principal); C43.59 Malignant melanoma of other part of trunk; C79.89 Secondary malignant neoplasm of other specified sites; F17.210 Nicotine dependence, cigarettes, uncomplicated; Z20.822 Contact with and (suspected) exposure to COVID-19; Z79.899 Other long term (current) drug therapy; Z90.49 Acquired absence of other specified parts of digestive tract; N20.0 Calculus of kidney; Z85.038 Personal history of other malignant neoplasm of large intestine
CPT/HCPCS: 74177; 80053; 83605; 85025; 87081; 87502; 87880; 96361; 96374; 99284; A9270; C9803; J1885; J7030; Q9967; U0003; U0005

== ENCOUNTER 2022-01-04 12:55 | Outpatient (CLI) | payer OTHER, SELFPAY ==
[2022-01-04 13:12] LABS: Basophils Percent Auto 0.4 % (0.2-1.2); Eosinophils Absolute Auto 0.2 K/mm3 (0-0.3); Eosinophils Percent Auto 2.1 % (0-4.4); Hematocrit 40.2 % (42.0-52.0); Hemoglobin 13.3 g/dL (14.0-18.0); Immature Granulocyte Absolute 0.02 K/mm3 (0.00-0.031); Immature Granulocyte Percent A 0.2 % (0-0.5); Lymphocytes Absolute Auto 1.59 K/mm3 (0.9-3.2); Lymphocytes Percent Auto 19.4 % (18.3-44.2); Mean Corpuscular HGB Conc 33.1 g/dl (32-36); Mean Corpuscular Hemoglobin 29.8 pg (26-34); Mean Corpuscular Volume 90.1 fl (80-100); Mean Platelet Volume 9.6 fl (7.4-10.4); Monocytes Absolute Auto 0.9 K/mm3 (0.1-0.6); Neutrophils Absolute Auto 5.5 K/mm3 (1.3-6.7); Neutrophils Percent Auto 66.9 % (45.5-73.1); Platelet Count Result 243 k/mm3 (150-375); Red Blood Count 4.46 M/mm3 (4.6-6.20); White Blood Count 8.2 K/mm3 (4.5-10.0)
[2022-01-04 13:58] LABS: INR 0.9; Prothrombin Time 11.9 Seconds (11.1-14.7)
== END 2022-01-04 12:56 | disposition home or self-care (01) ==
LOC: ANHLAB 12:56
PROVIDERS: PCP Internal Medicine Hematology & Oncology; Visit Provider Internal Medicine Hematology & Oncology
DX: C43.71 Malignant melanoma of right lower limb, including hip (principal)
CPT/HCPCS: 36415; 85025; 85610; 85730

== ENCOUNTER 2022-01-17 09:00 | Outpatient (CLI) | payer OTHER, SELFPAY ==
--- NOTE | ~2022-01-17 | CT_ITS ---
EXAMINATION: CT abdomen pelvis w con DATE: 01/17/2022 09:23 INDICATION: Left-sided abdominal pain. Malignant neoplasm of right lower extremity. History of melano ma. TECHNIQUE: Computed tomography (CT) of the abdomen and pelvis was performed with 100 CC Omnipaque 350 intravenous contrast. Automated exposure control and iterative reconstruction technique were employe d. Exam dose: 527.39 mGy-cm total exam DLP. COMPARISON: 11/24/2021 CT abdomen pelvis FINDINGS: The lung bases are clear. Normal heart size. No pericardial or pleural effusion. The liver, gallbladder, bile ducts, pancreas, pancreatic duct, spleen and adrenal glands are unremark able. 11 mm right renal cyst. Occasional bilateral small nonobstructing renal calculi. No ureteral calculus or hydroureteronephrosi s. Normal caliber of the abdominal aorta. There is an 11.9 x 18.9 mm mesenteric lymph node centered slightly right of midline in the upper abdo men. Otherwise no intraperitoneal or retroperitoneal or pelvic mass lesion or adenopathy or ascites i s noted. Status post right colectomy. No bowel obstruction, bowel wall thickening, pneumatosis or intraperiton eal free air is noted. No suspicious osteolytic or osteoblastic lesions are noted. IMPRESSION: Upper abdominal mesenteric lymph node currently measures approximately 11.9 x 18.9 mm, c ompared to 1.3 x 1.8 cm on 11/24/2021 Status post right hemicolectomy Mild bilateral nonobstructive nephrolithiasis Reviewed, dictated and finalized at Location A. Reviewed, dictated and finalized at location B. NG BRUSHER IMPRESSION: Upper abdominal mesenteric lymph node currently measures approxima tely 11.9 x 18.9 mm, compared to 1.3 x 1.8 cm on 11/24/2021 Status post right hemicolectomy Mild bilateral nonobstructive nephrolithiasis
== END 2022-01-17 09:01 | disposition home or self-care (01) ==
PROVIDERS: PCP Internal Medicine Hematology & Oncology; Visit Provider Internal Medicine Hematology & Oncology
DX: C43.71 Malignant melanoma of right lower limb, including hip (principal); N20.0 Calculus of kidney
CPT/HCPCS: 74177; Q9967

== ENCOUNTER 2022-01-25 11:05 | Outpatient (CLI) | payer OTHER, SELFPAY ==
[2022-01-25 11:16] LABS: Basophils Absolute Auto 0.1 K/mm3 (0.0-0.1); Basophils Percent Auto 0.7 % (0.2-1.2); Eosinophils Absolute Auto 0.2 K/mm3 (0-0.3); Eosinophils Percent Auto 2.3 % (0-4.4); Hematocrit 39.5 % (42.0-52.0); Hemoglobin 13.1 g/dL (14.0-18.0); Immature Granulocyte Absolute 0.01 K/mm3 (0.00-0.031); Immature Granulocyte Percent A 0.1 % (0-0.5); Lymphocytes Absolute Auto 1.25 K/mm3 (0.9-3.2); Mean Corpuscular HGB Conc 33.2 g/dl (32-36); Mean Corpuscular Hemoglobin 29.7 pg (26-34); Mean Corpuscular Volume 89.6 fl (80-100); Mean Platelet Volume 9.5 fl (7.4-10.4); Monocytes Absolute Auto 1.2 K/mm3 (0.1-0.6); Monocytes Percent Auto 15.9 % (2.6-8.5); Neutrophils Absolute Auto 4.7 K/mm3 (1.3-6.7); Platelet Count Result 264 k/mm3 (150-375); Red Blood Count 4.41 M/mm3 (4.6-6.20); Red Cell Distribution Width 14.3 % (11.5-14.5); White Blood Count 7.3 K/mm3 (4.5-10.0)
[2022-01-25 11:21] LABS: Blood Urea Nitrogen 16 mg/dL (8-26); Carbon Dioxide 27 mmol/L (22-30); Chloride 101 mmol/L (98-109); Estimated Glomerular Filt Rate > 60; Glucose 105 mg/dL (70-105); Ionized Calcium (POC) 1.21 mmol/L (1.11-1.31); Potassium 4.2 mmol/L (3.5-4.9); Sodium 139 mmol/L (138-146)
[2022-01-25 15:47] LABS: Alanine Aminotransferase 78 U/L (6-50); Alkaline Phosphatase 110 U/L (38-126); Anion Gap 7 mmol/L (8-16); Aspartate Amino Transferase 66 U/L (17-59); Bilirubin,Total 0.3 mg/dL (0.2-1.3); Blood Urea Nitrogen 16 mg/dL (9-20); Calcium 8.9 mg/dL (8.4-10.2); Carbon Dioxide 28 mmol/L (22-30); Chloride 104 mmol/L (98-107); Estimated Glomerular Filt Rate > 60; Glucose 98 mg/dL (65-110); Potassium 4.2 mmol/L (3.4-5.0); Sodium 139 mmol/L (137-145)
== END 2022-01-25 11:06 | disposition home or self-care (01) ==
LOC: ANHLAB 11:06
PROVIDERS: PCP Internal Medicine Hematology & Oncology; Visit Provider Internal Medicine Hematology & Oncology
DX: C43.71 Malignant melanoma of right lower limb, including hip (principal)
CPT/HCPCS: 36415; 80047; 80053; 85025

== ENCOUNTER 2022-04-01 10:42 | Outpatient (CLI) | payer OTHER, SELFPAY ==
[2022-04-01 10:54] LABS: Basophils Absolute Auto 0.1 K/mm3 (0.0-0.1); Basophils Percent Auto 0.6 % (0.2-1.2); Eosinophils Absolute Auto 0.2 K/mm3 (0-0.3); Hemoglobin 11.1 g/dL (14.0-18.0); Immature Granulocyte Absolute 0.03 K/mm3 (0.00-0.031); Immature Granulocyte Percent A 0.3 % (0-0.5); Lymphocytes Absolute Auto 1.65 K/mm3 (0.9-3.2); Lymphocytes Percent Auto 17.1 % (18.3-44.2); Mean Corpuscular HGB Conc 30.8 g/dl (32-36); Mean Corpuscular Volume 84.3 fl (80-100); Monocytes Absolute Auto 1.3 K/mm3 (0.1-0.6); Monocytes Percent Auto 12.9 % (2.6-8.5); Neutrophils Absolute Auto 6.5 K/mm3 (1.3-6.7); Neutrophils Percent Auto 67.1 % (45.5-73.1); Platelet Count Result 270 k/mm3 (150-375); Red Blood Count 4.27 M/mm3 (4.6-6.20); Red Cell Distribution Width 13.6 % (11.5-14.5); White Blood Count 9.7 K/mm3 (4.5-10.0)
[2022-04-01 11:01] LABS: Blood Urea Nitrogen 21 mg/dL (8-26); Carbon Dioxide 27 mmol/L (22-30); Chloride 104 mmol/L (98-109); Estimated Glomerular Filt Rate > 60; Glucose 99 mg/dL (70-105); Potassium 4.1 mmol/L (3.5-4.9); Sodium 141 mmol/L (138-146)
[2022-04-01 11:57] LABS: Alanine Aminotransferase 27 U/L (6-50); Albumin Level 3.8 g/dL (3.5-5.1); Alkaline Phosphatase 84 U/L (38-126); Anion Gap 5 mmol/L (8-16); Aspartate Amino Transferase 35 U/L (17-59); Bilirubin,Total 0.3 mg/dL (0.2-1.3); Blood Urea Nitrogen 20 mg/dL (9-20); Calcium 8.2 mg/dL (8.4-10.2); Carbon Dioxide 28 mmol/L (22-30); Chloride 106 mmol/L (98-107); Estimated Glomerular Filt Rate > 60; Glucose 97 mg/dL (65-110); Potassium 4.1 mmol/L (3.4-5.0); Sodium 139 mmol/L (137-145)
== END 2022-04-01 10:43 | disposition home or self-care (01) ==
LOC: ANHLAB 10:45
PROVIDERS: PCP Internal Medicine Hematology & Oncology; Visit Provider Internal Medicine Hematology & Oncology
DX: C43.71 Malignant melanoma of right lower limb, including hip (principal)
CPT/HCPCS: 36415; 80047; 80053; 85025

== ENCOUNTER 2022-05-30 10:27 | Outpatient (CLI) | payer OTHER, SELFPAY ==
--- NOTE | ~2022-05-30 | CT_ITS ---
CT of the Abdomen and Pelvis: Indication: Malignant melanoma Technique: 2.5 mm axial scans were obtained through the abdomen and pelvis following intravenous adm inistration of 100 cc of Omnipaque 350. Dose reduction technique was used on this scan by utilizing a utomated exposure control and iterative reconstruction technique. The dose-length product (DLP) was 5 35.36 mGy-cm. COMPARISON: 01/17/2022 Findings: Scans through the lung bases are unremarkable. The liver, spleen, pancreas, gallbladder, and adrenal glands are within normal limits. Patchy areas o f decreased renal parenchymal enhancement are similar to prior exam, suggestive of old infarcts. No e vidence of aortic aneurysm. Peripancreatic lymph node measures 1.4 x 1.3 cm (axial image 67). No bowel obstruction or bowel wall thickening. There is no evidence to suggest acute appendicitis. Th ere is prior right partial colectomy. Images through the pelvis were performed. Urinary bladder unremarkable. Prostate gland and seminal ve sicles are unremarkable. No ascites. Impression: 1.4 x 1.3 cm peripancreatic lymph node, as detailed above. This is probably mildly decreased from zulma or exam. Prior partial right colectomy. Patchy areas of decreased renal parenchymal enhancement, similar to prior exam. Consider prior renal infarcts. Reviewed, dictated and finalized at location M. Impression: 1.4 x 1.3 cm peripancreatic lymph node, as detailed above. This is probably mil dly decreased from prior exam. Prior partial right colectomy. Patchy areas of decreased renal parenchymal enhancement, similar to prior exam. Consider prior renal infarcts.
[2022-05-30 10:46] LABS: Estimated Glomerular Filt Rate > 60
== END 2022-05-30 10:28 | disposition home or self-care (01) ==
LOC: ANHIMG 10:31
PROVIDERS: PCP Internal Medicine Hematology & Oncology; Visit Provider Internal Medicine Hematology & Oncology
DX: C43.71 Malignant melanoma of right lower limb, including hip (principal)
CPT/HCPCS: 74177; Q9967

== ENCOUNTER 2023-10-24 10:11 | Outpatient (CLI) | payer OTHER, SELFPAY ==
[2023-10-24 10:27] LABS: Basophils Absolute Auto 0.1 K/mm3 (0.0-0.1); Basophils Percent Auto 0.7 % (0.2-1.2); Eosinophils Absolute Auto 0.2 K/mm3 (0-0.3); Eosinophils Percent Auto 3.3 % (0-4.4); Hematocrit 42.9 % (42.0-52.0); Hemoglobin 13.9 g/dL (14.0-18.0); Immature Granulocyte Absolute 0.02 K/mm3 (0.00-0.031); Immature Granulocyte Percent A 0.3 % (0-0.5); Lymphocytes Absolute Auto 1.27 K/mm3 (0.9-3.2); Lymphocytes Percent Auto 17.3 % (18.3-44.2); Mean Corpuscular HGB Conc 32.4 g/dl (32-36); Mean Corpuscular Hemoglobin 28.7 pg (26-34); Mean Corpuscular Volume 88.6 fl (80-100); Mean Platelet Volume 9.8 fl (7.4-10.4); Monocytes Absolute Auto 1.1 K/mm3 (0.1-0.6); Neutrophils Absolute Auto 4.7 K/mm3 (1.3-6.7); Neutrophils Percent Auto 63.4 % (45.5-73.1); Platelet Count Result 237 k/mm3 (150-375); Red Blood Count 4.84 M/mm3 (4.6-6.20); Red Cell Distribution Width 15.6 % (11.5-14.5); White Blood Count 7.3 K/mm3 (4.5-10.0)
[2023-10-24 10:32] LABS: Blood Urea Nitrogen 10 mg/dL (8-26); Carbon Dioxide 24 mmol/L (22-30); Chloride 102 mmol/L (98-109); Estimated Glomerular Filt Rate 42; Glucose 92 mg/dL (70-105); Ionized Calcium (POC) 1.19 mmol/L (1.11-1.31); Potassium 3.3 mmol/L (3.5-4.9); Sodium 141 mmol/L (138-146)
[2023-10-24 11:17] LABS: Alanine Aminotransferase 91 U/L (6-50); Albumin Level 4.1 g/dL (3.5-5.1); Alkaline Phosphatase 91 U/L (38-126); Anion Gap 10 mmol/L (4-12); Aspartate Amino Transferase 46 U/L (17-59); Bilirubin,Total 0.4 mg/dL (0.2-1.3); Blood Urea Nitrogen 12 mg/dL (9-20); Calcium 9.1 mg/dL (8.4-10.2); Carbon Dioxide 25 mmol/L (22-30); Chloride 103 mmol/L (98-107); Estimated Glomerular Filt Rate 48; Glucose 91 mg/dL (65-110); Potassium 3.3 mmol/L (3.4-5.0); Sodium 138 mmol/L (137-145)
== END 2023-10-24 10:12 | disposition home or self-care (01) ==
LOC: ANHLAB 10:15
PROVIDERS: PCP Internal Medicine Hematology & Oncology; Visit Provider Internal Medicine Hematology & Oncology
DX: C43.71 Malignant melanoma of right lower limb, including hip (principal)
CPT/HCPCS: 36415; 80047; 80053; 85025

== ENCOUNTER 2023-11-08 10:52 | Outpatient (CLI) | payer OTHER, SELFPAY ==
--- NOTE | ~2023-11-08 | CT_ITS ---
EXAMINATION: CT chest abdomen pelvis w con DATE: 11/08/2023 11:11 INDICATION: Malignant melanoma of right lower extremity. TECHNIQUE: Computed tomography (CT) of the chest, abdomen, and pelvis was performed with 100 mL Omnip aque 350 intravenous contrast. Automated exposure control and iterative reconstruction technique were employed. The dose-length product was 706.89 mGy-cm. COMPARISON: CT abdomen and pelvis 05/30/2022, chest CT 11/03/20 FINDINGS: CHEST CT: The lungs demonstrate mild scarring in right upper lobe. There is a 2 mm nodule in left upper lobe, s table from 11/03/20, likely benign. No pleural effusion. The heart size is normal. No pericardial effu hugo. There is bilateral gynecomastia. There is moderate thoracic spondylosis. ABDOMEN/PELVIS CT: The liver, gallbladder, spleen, pancreas, and adrenal glands are normal. There is cortical thinning o f the kidneys. There are 2 stones in right kidney measuring up to 4 mm. There are 3 stones in left ki dney measuring up to 4 mm. There are changes of right hemicolectomy. There are no dilated loops of marcin wel. There are no pathologically enlarged lymph nodes. There is no free intraperitoneal fluid. There is mild lumbar spondylosis. IMPRESSION: 1. No evidence of metastatic disease. Reviewed, dictated and finalized at location A.
== END 2023-11-08 10:53 | disposition home or self-care (01) ==
LOC: ANHIMG 10:53
PROVIDERS: PCP Internal Medicine Hematology & Oncology; Visit Provider Internal Medicine Hematology & Oncology
DX: C43.71 Malignant melanoma of right lower limb, including hip (principal)
CPT/HCPCS: 71260; 74177; Q9967

== ENCOUNTER 2024-01-23 13:52 | Outpatient (CLI) | payer OTHER, SELFPAY ==
[2024-01-23 14:22] LABS: Basophils Absolute Auto 0.1 K/mm3 (0.0-0.1); Basophils Percent Auto 0.8 % (0.2-1.2); Eosinophils Absolute Auto 0.2 K/mm3 (0-0.3); Eosinophils Percent Auto 2.3 % (0-4.4); Hematocrit 43.6 % (42.0-52.0); Hemoglobin 14.4 g/dL (14.0-18.0); Immature Granulocyte Absolute 0.01 K/mm3 (0.00-0.031); Immature Granulocyte Percent A 0.1 % (0-0.5); Lymphocytes Absolute Auto 1.21 K/mm3 (0.9-3.2); Lymphocytes Percent Auto 15.8 % (18.3-44.2); Mean Corpuscular Hemoglobin 28.6 pg (26-34); Mean Corpuscular Volume 86.5 fl (80-100); Mean Platelet Volume 9.8 fl (7.4-10.4); Monocytes Absolute Auto 0.7 K/mm3 (0.1-0.6); Monocytes Percent Auto 9.4 % (2.6-8.5); Neutrophils Absolute Auto 5.5 K/mm3 (1.3-6.7); Neutrophils Percent Auto 71.6 % (45.5-73.1); Platelet Count Result 227 k/mm3 (150-375); Red Blood Count 5.04 M/mm3 (4.6-6.20); Red Cell Distribution Width 14.7 % (11.5-14.5); White Blood Count 7.7 K/mm3 (4.5-10.0)
[2024-01-23 14:27] LABS: Blood Urea Nitrogen 13 mg/dL (8-26); Carbon Dioxide 27 mmol/L (22-30); Chloride 104 mmol/L (98-109); Estimated Glomerular Filt Rate 55; Glucose 105 mg/dL (70-105); Ionized Calcium (POC) 1.18 mmol/L (1.11-1.31); Potassium 3.4 mmol/L (3.5-4.9); Sodium 144 mmol/L (138-146)
[2024-01-23 16:41] LABS: Alanine Aminotransferase 18 U/L (6-50); Albumin Level 4.1 g/dL (3.5-5.1); Alkaline Phosphatase 77 U/L (38-126); Anion Gap 6 mmol/L (4-12); Aspartate Amino Transferase 40 U/L (17-59); Bilirubin,Total 0.6 mg/dL (0.2-1.3); Blood Urea Nitrogen 15 mg/dL (9-20); Carbon Dioxide 28 mmol/L (22-30); Chloride 108 mmol/L (98-107); Estimated Glomerular Filt Rate 55; Glucose 104 mg/dL (65-110); Potassium 3.6 mmol/L (3.4-5.0); Sodium 142 mmol/L (137-145)
== END 2024-01-23 13:53 | disposition home or self-care (01) ==
LOC: ANHLAB 13:54
PROVIDERS: PCP Internal Medicine Hematology & Oncology; Visit Provider Internal Medicine Hematology & Oncology
DX: C43.71 Malignant melanoma of right lower limb, including hip (principal)
CPT/HCPCS: 36415; 80047; 80053; 85025

== ENCOUNTER 2024-04-22 12:14 | Outpatient (CLI) | payer OTHER, SELFPAY | END 2024-04-22 12:15 | disposition home or self-care (01) | PROVIDERS: PCP Internal Medicine Hematology & Oncology; Visit Provider Internal Medicine Hematology & Oncology | DX: C43.71 Malignant melanoma of right lower limb, including hip (principal); N20.0 Calculus of kidney | CPT/HCPCS: 71260; 74177; Q9967 ==

== ENCOUNTER 2024-04-29 13:51 | Outpatient (CLI) | payer OTHER, SELFPAY ==
[2024-04-29 14:04] LABS: Basophils Percent Auto 0.6 % (0.2-1.2); Eosinophils Absolute Auto 0.1 K/mm3 (0-0.3); Hematocrit 44.4 % (42.0-52.0); Hemoglobin 15.1 g/dL (14.0-18.0); Immature Granulocyte Absolute 0.02 K/mm3 (0.00-0.031); Immature Granulocyte Percent A 0.3 % (0-0.5); Lymphocytes Absolute Auto 1.22 K/mm3 (0.9-3.2); Lymphocytes Percent Auto 17.7 % (18.3-44.2); Mean Corpuscular Hemoglobin 30.5 pg (26-34); Mean Corpuscular Volume 89.7 fl (80-100); Mean Platelet Volume 9.6 fl (7.4-10.4); Monocytes Absolute Auto 0.8 K/mm3 (0.1-0.6); Monocytes Percent Auto 11.9 % (2.6-8.5); Neutrophils Absolute Auto 4.7 K/mm3 (1.3-6.7); Neutrophils Percent Auto 67.5 % (45.5-73.1); Platelet Count Result 221 k/mm3 (150-375); Red Blood Count 4.95 M/mm3 (4.6-6.20); Red Cell Distribution Width 14.6 % (11.5-14.5); White Blood Count 6.9 K/mm3 (4.5-10.0)
[2024-04-29 14:07] LABS: Blood Urea Nitrogen 16 mg/dL (8-26); Carbon Dioxide 22 mmol/L (22-30); Chloride 106 mmol/L (98-109); Estimated Glomerular Filt Rate 51; Glucose 74 mg/dL (70-105); Ionized Calcium (POC) 1.23 mmol/L (1.11-1.31); Sodium 139 mmol/L (138-146)
--- OUTSIDE RECORDS SUMMARY | 2024-04-29 15:57 | XMS_ITS | Encounter Summary ---
Author Organization [facility] Address [address] [place] [address] Care Team Providers Care Envelope Machine Adjuster Name Role Phone Provider, Abstract Primary Care Provider Unavail able Encounter Details Date Type Department Care Team (Late st Contact Info) Description 04/27/2024 External Device Data STL ABSTRACTION Provider, Abstract NO ADDRESS ON FILE Social History Tobacco Use Types Packs/Day Years Used Date Smoking Tobacco: Every Day Cigarettes 1 10 Smokeless Tobacco: Never Alcohol Use Standard Drinks/Week Comments Not Currently 0 (1 standard drink = 0.6 oz pure alcohol) just quit was drinking about 6 beers a day Sex and Gender Information Value Date Recorded Sex Assigned at Not on file Legal Sex Male 2:44 PM CDT Gender Identity Not on file Sexual Orientation Not on file documented as of this encounter Plan of Treatment Upcoming Encounters Date Type Department Care Team (Late st Contact Info) Description 09/02/2024 1:00 PM CDT Office Visit [facility] Oncology and Hematology - [place] [address] [facility] [address] [place] [address] Jv Cisneros MD [address] [facility] [address] [place] [address] documented as of this encounter Visit Diagnoses Not on filedocumented in this encounter Care Teams Envelope Machine Adjuster Relationship Specialty Start Date End Date Provider, Abstract NO ADDRESS ON FILE PCP - General 05/29/20 documented as of this encounter
--- OUTSIDE RECORDS SUMMARY | 2024-04-29 15:57 | XMS_ITS | Clinical Summary ---
[facility] Address [address] [address] Care Team Providers Care Package Sorter Name Role Phone Provider, Abstract Primary Care Provider Unavail able Allergies Active Allergy Reactions Criticality Noted Date Comments Codeine Dizziness,Delirium Medium 05/29/2020 Medications naloxone (NARCAN) 4 mg/spray [place], Non-Aerosol EMERGENCY USE ONLY: Administer 1 spray (4 mg) in one nostril one time. May repeat in alternating nostrils every 2-3 min until responsive or EMS arrives. 2 Each 3 4 Active ibuprofen (MOTRIN) 600 mg tabletIndicatio ns:Malignant melanoma of right lower extremity (CMS/HCC) Take 1 Tablet (600 mg) by mouth every 6 hours as needed for Pain, Mild. 90 Tablet 4 4 Active amLODIPine (NORVASC) 5 mg tablet Take 1 Tablet (5 mg) by mouth daily. 30 Tablet 4 Active oxyCODONE-aceta minophen (PERCOCET) 10-325 mg TabletIndicatio ns:Malignant melanoma of right lower extremity (CMS/HCC) Take 1 Tablet by mouth every 6 hours as needed for Pain, Severe. Max Daily Amount: 4 Tablets 60 Tablet 4 Active ALPRAZolam (XANAX) 1 mg tabletIndicatio ns:Malignant melanoma of right lower extremity (CMS/HCC) TAKE 1 TABLET(1 MG) BY MOUTH EVERY NIGHT NEEDED FOR ANXIETY 30 Tablet 4 Active dabrafenib (Tafinlar) 75 mg capsuleIndicati ons:Malignant melanoma of right lower extremity (CMS/HCC) TAKE 2 CAPSULES BY MOUTH TWICE DAILY BEFORE MEALS 60 Capsule 3 4 Active trametinib (Mekinist) 2 mg tabletIndicatio ns:Malignant melanoma of right lower extremity (CMS/HCC) take 1 tablet by mouth daily before breakfast 60 Tablet 3 4 Active potassium CHLORIDE (K-DUR,KLOR-CON M20) 20 mEq Extended Release tablet Take 1 Tablet (20 mEq) by mouth daily. 60 Tablet 2 5 Active Active Problems Problem Noted Date Diagnosed Date Malignant melanoma of right lower extremity 10/2020 Encounters Date Type Department Care Team Description 04/29/2024 2:00 PM CDT Office Visit [facility] Oncology and [facility] [address] [place] [id number] Jv Cisneros MD Malignant melanoma of right lower extremity (CMS/HCC) (Primary Dx) 04/27/2024 External Device Data STL ABSTRACTION Provider, Abstract 04/26/2024 External Device Data STL ABSTRACTION Provider, Abstract 04/23/2024 Orders Only [facility] Oncology and H[facility] [address] [place] [id number] Jv Cisneros MD 04/09/2024 External Device Data STL ABSTRACTION Provider, Abstract 03/26/2024 External Device Data STL ABSTRACTION Provider, Abstract 03/19/2024 External Device Data STL ABSTRACTION Provider, Abstract 03/13/2024 External Device Data STL ABSTRACTION Provider, Abstract 03/13/2024 External Device Data STL ABSTRACTION Provider, Abstract 03/12/2024 Telephone [facility] Oncology and Hematology [facility] [address] [place] [address] Jv Cisneros MD blood in [facility] 03/11/2024 Telephone [facility] Oncology and H[facility] [address] [place] [address] Jv Cisneros MD Missed Call from Last 3 Months Family History Medical History Relation Name Comments Heart Disease Father Cancer Maternal Grandfather Heart Attack Mother Heart Disease Mother Cancer Paternal Grandmother Relation Name Status Comments Brother 1 Alive Brother 2 Alive Father Alive Maternal Grandfather Maternal Grandmother Mother Paternal Grandmother Son Alive Social History Tobacco Use Types Packs/Day Years Used Date Smoking Tobacco: Every Day Cigarettes 1 10 Smokeless Tobacco: Never Tobacco Cessation:Ready to Q uit: Not Asked; Counseling Given: Not Answered Alcohol Use Standard Drinks/Week Comments Not Currently 0 (1 standard drink = 0.6 oz pure alcohol) just quit was drinking about 6 beers a day Sex and Gender Information Value Date Recorded Sex Assigned at Not on file Legal Sex Male 2:44 PM CDT Gender Identity Not on file Sexual Orientation Not on file Last Filed Vital Signs Vital Sign Reading Time Taken Comments Blood Pressure 199/124 04/29/2024 2:19 PM CDT Pulse 102 04/29/2024 2:16 PM CDT Temperature 35.9 C (96.6 F) 04/29/2024 2:16 PM CDT Respiratory Rate 16 04/29/2024 2:16 PM CDT Oxygen Saturation 94% 04/29/2024 2:16 PM CDT Inhaled Oxygen Concentration - - Weight 81.8 kg (180 lb 6.4 oz) 04/29/2024 2:16 P M CDT Height 172.7 cm (5' 8 ) 10/24/2023 10:32 AM CDT Body Mass Index 27.43 10/24/2023 10:32 AM CDT Plan of Treatment Upcoming Encounters Date Type Department Care Team (Late st Contact Info) Description 09/02/2024 1:00 PM CDT Office Visit [facility] Oncology and Hematology - [place] [address] [facility] [address] [place] [address] Jv Cisneros MD [address] [facility] [address] [place] [address] Health Maintenance Due Date Last Done Comments Pre-Diabetes and Diabetes Screening 1980 DTAP/TDAP/TD VACCINES (1 - Tdap) 12/09/1999 HEPATITIS B VACCINES (1 of 3 - 19+ 3-dose series) 12/09/1999 Preventative Visit-Managed Medicaid 12/09/1999 INFLUENZA VACCINE (#1) 2023 HPV VACCINES Aged Out No longer eligi ble based on patient's age to complete this topic Procedures Procedure Name Priority Date/Time Associated Diagnosis Comments CT CHEST ABDOMEN PELVIS W CONT Routine 04/22/2024 10:30 AM WELDING MACHINE OPERATOR SUBMERGED ARC from Last 3 Months Results * CT CHEST ABDOMEN PELVIS W CONT (04/22/2024 10:30 AM WELDING MACHINE OPERATOR SUBMERGED ARC) Anatomical Region Laterality Modality Chest Other us Jv Cisneros MD CT ORDERABLES Final Result from Last 3 Months Insurance [facility] Address: [address] [address] Commercial Care Teams Package Sorter Relationship Specialty Start Date End Date Provider, Abstract NO ADDRESS ON FILE PCP - General 05/29/20
--- OUTSIDE RECORDS SUMMARY | 2024-04-29 15:57 | XMS_ITS | Encounter Summary ---
Author Organization [facility] Address [address] [place] [address] Care Team Providers Care Direct Response Consultant Name Role Phone Provider, Abstract Primary Care Provider Unavail able Reason for Referral * CT Scan (Routine) - Open Specialty Diagnoses / Procedures Referred By Ángel soares Referred To Contact Diagnoses Malignant melanoma of right lower extremity (CMS/HCC) Procedures CT CHEST ABDOMEN PELVIS W CONT Jv Cisneros MD [address] [employer] [address] [place] [address] Phone: tel: fax: [place] [phone] Referral ID Status Reason Start Date Expiration Date V isits Requested Visits Authorized [id number] Open STL CTS 04/29/2024 05/30/2025 1 1 Reason for Visit * Reason Comments Cancer Follow Up Encounter Details Date Type Department Care Team (Late st Contact Info) Description 04/29/2024 2:00 PM CDT Office Visit [facility] Oncology and Hematology [place] [address] [place] [address] Jv Cisneros MD [address] [employer] [address] [place] [address] Malignant melanoma of right lower extremity (CMS/HCC) (Primary Dx) Social History Tobacco Use Types Packs/Day Years [...] on file documented as of this encounter Last Filed Vital Signs Vital Sign Reading [...] oz) 04/29/2024 2:16 P M CDT Height - - Body Mass Index 27.43 10/24/2023 10:32 AM CDT documented in this encounter Progress Notes * Jv Cisneros MD - 04/29/2024 2:52 PM CDT HEMATOLOGY / ONCOLOGY PROGRESS NOTE Patient Identification: Name: Wang Marinelli Age: 43 y.o. Sex: male : 1980 DIAGNOSIS Metastatic malignant melanoma status post right buttock mass biopsy done on May 21, 2020. CURRENT TREATMENT Immunotherapy with dabrafenib and trametinib be started August 15, 2020 TREATMENT HISTORY Wide excision of right gluteal melanoma measured 13 cm done on June 05, 2020. Laparoscopic right colectomy done on July 06, 2020. Patient was incarcerated since the last visit with me in March 2022 but was able to continue dabrafenib and trametinib in [facility]. SUBJECTIVE Patient came to the office for follow-up visit after the CT scan. He denies any chest pain and shortness of breath. Denies any abdominal pain. He has lost 8 pound weight. No other new complaints. Review of system Constitutional: denies fevers, sweats, denies any tiredness and fatigue, 8 pound weight loss HEENT: denies sinus congestion,, complain of blurry vision Respiratory: denies cough, dyspnea, wheeze Cardiovascular: denies chest pain, exertional chest pressure/discomfort, nausea, syncope, shortnessof breath GI: denies constipation, dsyphagia, reflux symptoms, vomiting, melena, plaint of occasional abdominal pain. : denies dysuria, frequency, incontinence, urgency Integumentary system: no lymphadenopathy, sweats, flushing Musculoskeletal: denies: myalgia, denies any arthralgia, complain of musculoskeletal discomfort Neurological: denies blurry or disturbed vision, numbness/weakness, dizziness, complain of headache Skin: No lumps, denies any rash 12 point review of system was reviewed Objective: Vital signs in last 24 hours: As per nursing note Exam: General appearance: alert, cooperative, no distress, appears stated age Head: normocephalic, without obvious abnormality, atraumatic Eyes: conjunctivae/corneas clear, EOM's intact Ears: normal external ear canals AU Nose: Nares normal. Septum midline. Mucosa normal. No drainage or sinus tenderness Throat: Lips, mucosa, and tongue normal. Teeth and gums normal Neck: supple, symmetrical, trachea midline. Lungs: clear to auscultation bilaterally Heart: regular rate and rhythm, S1, S2 normal, no murmur, click, rub or gallop, lower abdominal tenderness abdomen: soft, non-tender. Bowel sounds normal. No masses, No organomegaly, Extremities: extremities normal, atraumatic, no cyanosis or edema Skin: Skin color, texture, turgor normal. Lymph nodes: No lymphadenopathy Neuro: No obvious focal deficit Exam as above PATH LABS Labs from September 17 showed WBC 6.9 hemoglobin 15.5 platelet 221,000 AST 31 ALT 29 creatinine 0.9 Labs from January 07 showed WBC 6.6 hemoglobin 12.9 platelets 306,000 creatinine 1.0 Labs from January 29 showed WBC 5.4 hemoglobin 14 platelet 217,000 creatinine 1.0 Labs from March 04 showed WBC 6.5 hemoglobin 13.3 platelet 256,000 creatinine 1.1 Labs from May 04 showed WBC 7 hemoglobin 12.6 platelet 264,000 creatinine 1.2 Labs from June 15 showed WBC 6.2 hemoglobin 13.2 platelet 361,000 creatinine 1.5 Labs from July 29 showed WBC 7.2 hemoglobin 12.6 platelet 245,000 creatinine 1.2 Labs from September 17 showed WBC 6.2 hemoglobin 12.9 platelet 227,000 creatinine 1.3 Labs from November 19 8 showed WBC 7.1 hemoglobin 13.9 platelet 268,000 creatinine 1.1 Labs from January 25 show WC 7.3 hemoglobin 13.1 platelet 264,000 creatinine 1.2 Labs from April 01 showed WBC 9.7 hemoglobin 11.1 platelet 270,000 creatinine 1.1 Lab from October 23 showed WBC 7.3 [place] 13.9 platelet 237,000 creatinine 1.8 GFR 42 Labs from January 22 showed creatinine 1.4 potassium 3.4 hemoglobin 14.4 Labs from April 29 showed creatinine 1.5 potassium 3.0 hemoglobin 15.1 Assessment: Plan: Patient Active Problem List Diagnosis Date Noted Malignant melanoma of right lower extremity (CMS/HCC) 05/29/2020 Metastatic malignant melanoma status post incisional biopsy of the right buttock mass done on 2020 came back positive for melanoma with 1.0 cm thickness with ulceration. PET scan was performed on June 04, 2020 that showed right gluteal mass 6.5 x 4.1 cm with SUV of 18.5 along with 5.4 x 4.5 cm soft tissue mass in the right upper quadrant which possibly invade the mid transverse colon. SUV of 17. Liver spleen pancreas gallbladder adrenal glands were normal. There was normal size right inguinal lymph node with low-level of FDG uptake with maximum SUV of 2.7 possibly metastatic disease. Wide excision of right gluteal melanoma measured 13 cm done on June 05, 2020. Laparoscopic right colectomy done on July 06, 2020. Pathology report from colon resection showed 1 out of 10 lymph node positive for metastatic melanoma. Metastatic malignant melanoma single large mass measures 8 x 7.5 x 6.5 cm in paroxysmal transverse colon not involving resection margin. Omentum with acute serositis free of neoplasm. Terminal ileum and appendix free of neoplasm. Metastatic melanoma in 1 of 10 pericolonic lymph node. 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 Patient started immunotherapy with dabrafenib and trametinib on August 15, 2020. CT scan chest abdomen pelvis on April 22, 2024 showed no evidence of metastatic disease. He will continue treatment with dabrafenib and trametinib which she has been tolerating well. Follow-up with me with repeat CT scan in 4 months. Anemia. Hemoglobin stable. Hypertension. Have strongly recommended to follow-up with the primary care physician. Anxiety and insomnia. Patient will not get any further refill on Xanax and pain medications. Hypokalemia. Will prescribe potassium 20 mill equivalent once a day. Follow-up in 4 months. 04/29/2024 Jv Cisneros MD documented in this encounter Plan of Treatment Upcoming Encounters Date Type Department Care Team (Late st Contact Info) Description 09/02/2024 1:00 PM CDT Office Visit [facility] Oncology and Hematology [facility] [address] [facility] [address] [place] [address] Jv Cisneros MD [address] [facility] [address] [place] [address] Scheduled Orders Name Type Priority Associated Diagnoses Orde r Schedule CBC WITH DIFFERENTIAL Lab Stat Malignant melanoma of right lower extremity (CMS/HCC) Expected: 08/19/2024, Expires: 04/29/2025 COMPREHENSIVE METABOLIC PANEL Lab Stat Malignant melanoma of right lower extremity (CMS/HCC) Expected: 08/19/2024, Expires: 04/29/2025 CT CHEST ABDOMEN PELVIS W CONT Imaging Routine Malignant melanoma of right lower extremity (CMS/HCC) Expected: 08/29/2024, Expires: 04/29/2025 documented as of this encounter Visit Diagnoses Diagnosis Malignant melanoma of right lower extremity (CMS/HCC)- Primary documented in this encounter Care Teams Direct Response Consultant Relationship Specialty Start Date End Date Provider, Abstract NO ADDRESS ON FILE PCP - General 05/29/20 documented as of this encounter
--- OUTSIDE RECORDS SUMMARY | 2024-04-29 15:57 | XMS_ITS | Encounter Summary ---
Author Organization [facility] Address [address] [place] [address] Care Team Providers Care Sample Room Supervisor Name Role Phone Provider, Abstract Primary Care Provider Unavail able Reason for Visit * Reason Comments Medication Refill Encounter Details Date Type Department Care Team (Late Contact Info) Description 03/08/2021 Refill [facility] Oncology and Hematology - [place] [address] [place] [address] [facility] [address] [place] [address] Jv Cisneros MD [address] [facility] [address] [place] [address] Malignant melanoma of right lower extremity (CMS/HCC) Social History Tobacco Use Types Packs/Day Years [...] on file Sexual Orientation Not on file COVID-19 Exposure Response Date Recorded In the last month, have you been in contact with someone who was confirmed or suspected to have Coronavirus / COVID-19? No / Unsure 03/04/2021 10:37 AM FIRE ALARM DISPATCHER documented as of this encounter Plan of Treatment Upcoming Encounters Date Type Department Care Team (Late st Contact Info) Description 09/02/2024 1:00 PM CDT Office Visit [facility] Oncology and Hematology - [place] [address] [place] [address] Jv Cisneros MD [address] [facility] [address] [place] [address] documented as of this encounter Visit Diagnoses Diagnosis Malignant melanoma of right lower extremity (CMS/HCC) documented in this encounter Care Teams Sample Room Supervisor Relationship Specialty Start Date End Date Provider, Abstract NO ADDRESS ON FILE PCP - General 05/29/20 documented as of this encounter
[2024-04-29 16:43] LABS: Alanine Aminotransferase 33 U/L (6-50); Albumin Level 3.7 g/dL (3.5-5.1); Alkaline Phosphatase 114 U/L (38-126); Anion Gap 10 mmol/L (4-12); Aspartate Amino Transferase 47 U/L (17-59); Bilirubin,Total 0.3 mg/dL (0.2-1.3); Blood Urea Nitrogen 17 mg/dL (9-20); Calcium 9.1 mg/dL (8.4-10.2); Carbon Dioxide 22 mmol/L (22-30); Chloride 107 mmol/L (98-107); Estimated Glomerular Filt Rate 58; Glucose 75 mg/dL (65-110); Potassium 3.2 mmol/L (3.4-5.0); Sodium 139 mmol/L (137-145)
== END 2024-04-29 13:52 | disposition home or self-care (01) ==
LOC: ANHLAB 13:52
PROVIDERS: PCP Internal Medicine Hematology & Oncology; Visit Provider Internal Medicine Hematology & Oncology
DX: C43.71 Malignant melanoma of right lower limb, including hip (principal)
CPT/HCPCS: 36415; 80047; 80053; 85025

== ENCOUNTER 2024-08-02 13:12 | Outpatient (CLI) | payer OTHER, SELFPAY ==
--- NOTE | ~2024-08-02 | XR_ITS ---
XR lumbar spine 2-3V 08/02/2024 13:32 Indication: Back pain Procedure: 3 views lumbar spine Comparison: No prior studies for comparison. Findings: Vertebral body heights are maintained. No fracture, subluxation or dislocation. No evidence for spondylolysis or spondylolisthesis. No acute fracture or traumatic malalignment. Pedicles intact . Sacral foramen are symmetric. Punctate radiodensities overlying the right kidney, suspicious for re nal stones. Impression: 1: No significant abnormality of the lumbar spine. 2: Possible right nephrolithiasis. Reviewed, dictated and finalized at location B. Impression: 1: No significant abnormality of the lumbar spine. 2: Possible right nephrolithiasis.
--- NOTE | ~2024-08-02 | XR_ITS ---
XR_CERV2-3V_CR 08/02/2024 13:33 Indication: Neck pain Procedure: 3 view cervical spine Comparison: No prior studies for comparison. Findings: Straightening of cervical lordosis. There is disc narrowing at at C6-7. There is degenerati ve anterolisthesis at C4-5 and C5-6. No acute fracture or traumatic malalignment. There is facet hype rtrophy at C3-4 through C6-7. Lung apices are unremarkable. Odontoid process is normal. Impression: 1: Severe cervical spondylosis. Reviewed, dictated and finalized at location B. Impression: 1: Severe cervical spondylosis.
--- OUTSIDE RECORDS SUMMARY | 2024-08-02 13:16 | XMS_ITS | Clinical Summary ---
Author [facility] Address [address] [address] Care Team Providers Care Cattle Brander Name Role Phone Provider, Abstract Primary Care Provider Unavail able Allergies Active Allergy Reactions Criticality Noted Date Comments Codeine Dizziness,Delirium Medium 05/29/2020 Medications naloxone (NARCAN) 4 mg/spray [place], Non-Aerosol EMERGENCY USE ONLY: Administer 1 spray [...] Encounters Date Type Department Care Team Description 07/23/2024 External Device Data STL ABSTRACTION Provider, Abstract 07/11/2024 External Device Data STL ABSTRACTION Provider, Abstract 07/10/2024 External Device Data STL ABSTRACTION Provider, Abstract 07/09/2024 External Device Data STL ABSTRACTION Provider, Abstract 06/04/2024 External Device Data STL ABSTRACTION Provider, Abstract 05/21/2024 External Device Data STL ABSTRACTION Provider, Abstract 05/08/2024 External Device Data STL ABSTRACTION Provider, Abstract from Last 3 Months Family History Medical [...] P M CDT Height 172.7 cm (5' 8) 10/24/2023 10:32 AM CDT Body Mass Index 27.43 10/24/2023 10:32 AM CDT Plan of Treatment Upcoming Encounters Date Type Department Care Team (Late st Contact Info) Description 09/02/2024 1:00 PM CDT Office Visit [facility] Oncology and Hematology - [place] [address] [facility] [address] [place] [address] Jv Cisneros MD [address] [facility] [address] [place] [address] Health Maintenance Due Date Last Done Comments Pre-Diabetes and Diabetes Screening 1980 DTAP/TDAP/TD VACCINES (1 - Tdap) 12/09/1999 HEPATITIS B VACCINES (1 of 3 - 19+ 3-dose series) 12/09/1999 INFLUENZA VACCINE (#1) 2023 HPV VACCINES Aged Out No longer eligi ble based on patient's age to complete this topic Insurance [facility] MEDICA[employer] Commercial Care Teams Cattle Brander Relationship Specialty Start Date End Date Provider, Abstract NO ADDRESS ON FILE PCP - General 05/29/20
--- OUTSIDE RECORDS SUMMARY | 2024-08-02 13:16 | XMS_ITS | Encounter Summary ---
Author Organization [facility] Address [address] [address] [place] [address] Care Team Providers Care Metal Solderer Name Role Phone Provider, Abstract Primary Care Provider Unavail able Reason for Visit * Reason Comments Medication Refill Encounter Details Date Type Department Care Team (Late Contact Info) Description 03/08/2021 Refill [facility] Oncology and Hematology - [place] [address] [place] [address] [facility] [address] [place] [address] Jv Cisneros MD [address] [facility] [address] [place] [address] Malignant melanoma of right lower [...] COVID-19? No / Unsure 03/04/2021 10:37 AM TECHNOLOGY CONSULTANT documented as of this encounter Plan of Treatment Upcoming Encounters Date Type Department Care Team (Late st Contact Info) Description 09/02/2024 1:00 PM CDT Office Visit [facility] Oncology and Hematology - [place] [address] [facility] [address] [place] [address] Jv Cisneros MD [address] [facility] [address] [place] [address] documented as of this encounter Visit Diagnoses Diagnosis Malignant melanoma of right lower extremity (CMS/HCC) documented in this encounter Care Teams Metal Solderer Relationship Specialty Start Date End Date Provider, Abstract NO ADDRESS ON FILE PCP - General 05/29/20 documented as of this encounter
== END 2024-08-02 13:13 | disposition home or self-care (01) ==
PROVIDERS: PCP Nurse Practitioner Family; Visit Provider Nurse Practitioner Family
DX: M54.9 Dorsalgia, unspecified (principal); G89.29 Other chronic pain; M47.892 Other spondylosis, cervical region
CPT/HCPCS: 72040; 72100

== ENCOUNTER 2024-08-08 12:58 | Outpatient (CLI) | payer OTHER, SELFPAY ==
--- OUTSIDE RECORDS SUMMARY | 2024-08-08 13:14 | XMS_ITS | Encounter Summary ---
Author Organization [facility] [employer] [facility] Address [address] [place] [address] Care Team Providers Care Tallier Name Role Phone Provider, Abstract Primary Care Provider Unavail able Reason for Visit * Reason Comments Medication Refill Encounter Details Date Type Department Care Team (Late Contact Info) Description 03/08/2021 Refill [facility] Oncology and Hematology - [place] [address] [place] [address] [facility] [address] [place] [address] Jv Cisneros MD [address] [facility] [address] [place] [address] Malignant melanoma of right lower [...] COVID-19? No / Unsure 03/04/2021 10:37 AM PIZZA CHEF documented as of this encounter Plan of Treatment Upcoming Encounters Date Type Department Care Team (Late st Contact Info) Description 09/02/2024 1:00 PM CDT Office Visit [facility] Oncology and Hematology - [place] [address] [place] [address] Jv Cisneros MD [address] [facility] [address] [place] [address] documented as of this encounter Visit Diagnoses Diagnosis Malignant melanoma of right lower extremity (CMS/HCC) documented in this encounter Care Teams Tallier Relationship Specialty Start Date End Date Provider, Abstract NO ADDRESS ON FILE PCP - General 05/29/20 documented as of this encounter
--- OUTSIDE RECORDS SUMMARY | 2024-08-08 13:14 | XMS_ITS | Encounter Summary ---
Author Organization [facility] Address [address] [place] [address] Care Team Providers Care Dope House Operator Helper Name Role Phone Provider, Abstract Primary Care Provider Unavail able Encounter Details Date Type Department Care Team (Late st Contact Info) Description 08/06/2024 External Device Data STL ABSTRACTION Provider, Abstract [...] Description 09/02/2024 1:00 PM CDT Office Visit [facility] Oncology and Hematology - [place] [address] [facility] [address] [place] [address] Jv Cisneros MD [address] [facility] [address] [place] [address] documented as of this encounter Visit Diagnoses Not on filedocumented in this encounter Care Teams Dope House Operator Helper Relationship Specialty Start Date End Date Provider, Abstract NO ADDRESS ON FILE PCP - General 05/29/20 documented as of this encounter
--- OUTSIDE RECORDS SUMMARY | 2024-08-08 13:14 | XMS_ITS | Clinical Summary ---
Author Organization [facility] Address [address] [place] [address] Care Team Providers Care Oxygen Equipment Aide Name Role Phone Provider, Abstract Primary Care Provider Unavail able Allergies Active Allergy Reactions Criticality Noted Date Comments Codeine Dizziness,Delirium Medium 05/29/2020 Medications naloxone (NARCAN) 4 mg/spray [place], Non-Aerosol EMERGENCY USE ONLY: Administer 1 spray (4 mg) in one nostril one time. May repeat in alternating nostrils every 2-3 min until responsive or EMS arrives. 2 Each 3 4 Active ibuprofen (MOTRIN) 600 mg tabletIndicati ons:Malignant melanoma of right lower extremity (CMS/HCC) Take 1 Tablet (600 mg) by mouth every 6 hours as needed for Pain, Mild. 90 Tablet 4 4 Active amLODIPine (NORVASC) 5 mg tablet Take 1 Tablet (5 mg) by mouth daily. 30 Tablet 4 Active oxyCODONE-acet aminophen (PERCOCET) 10-325 mg TabletIndicati ons:Malignant melanoma of right lower extremity (CMS/HCC) Take 1 Tablet by mouth every 6 hours as needed for Pain, Severe. Max Daily Amount: 4 Tablets 60 Tablet 4 Active ALPRAZolam (XANAX) 1 mg tabletIndicati ons:Malignant melanoma of right lower extremity (CMS/HCC) TAKE 1 TABLET(1 MG) BY MOUTH EVERY NIGHT NEEDED FOR ANXIETY 30 Tablet 4 Active dabrafenib (Tafinlar) 75 mg capsuleIndicat ions:Malignant melanoma of right lower extremity (CMS/HCC) TAKE 2 CAPSULES BY MOUTH TWICE DAILY BEFORE MEALS 60 Capsule 3 4 Active potassium CHLORIDE (K-DUR,KLOR-CO N M20) 20 mEq Extended Release tablet Take 1 Tablet (20 mEq) by mouth daily. 60 Tablet 2 5 Active trametinib (Mekinist) 2 mg tabletIndicati ons:Malignant melanoma of right lower extremity (CMS/HCC) take 1 tablet by mouth daily before breakfast 60 Tablet 3 5 Active trametinib (Mekinist) 2 mg tabletIndicati ons:Malignant melanoma of right lower extremity (CMS/HCC) take 1 tablet by mouth daily before breakfast 60 Tablet 3 4 08/07/19 25 Discontin ued(Reord er) Active Problems Problem Noted Date Diagnosed Date Malignant melanoma of right lower extremity 10/2020 Encounters Date Type Department Care Team Description 08/06/2024 External Device Data STL ABSTRACTION Provider, Abstract 08/06/2024 Refill [facility] Oncology and Hematology - [place] [address] [facility] [address] [address] Jv Cisneros MD Malignant melanoma of right lower extremity (CMS/HCC) 07/23/2024 External Device Data STL ABSTRACTION Provider, [...] Description 09/02/2024 1:00 PM CDT Office Visit [facility] Oncology and Hematology - [place] [address] [facility] 200 [place] [address] Jv Cisneros MD [address] [facility] [address] [place] [address] Health Maintenance Due Date Last Done Comments Pre-Diabetes and Diabetes Screening 1980 DTAP/TDAP/TD VACCINES (1 - Tdap) 12/09/1999 HEPATITIS B VACCINES (1 of 3 - 19+ 3-dose series) 12/09/1999 INFLUENZA VACCINE (#1) 2023 HPV VACCINES Aged Out No longer eligi ble based on patient's age to complete this topic Insurance [facility] PLAN MEDICAID [employer] Commercial Care Teams Oxygen Equipment Aide Relationship Specialty Start Date End Date Provider, Abstract NO ADDRESS ON FILE PCP - General 05/29/20
[2024-08-08 13:50] LABS: Cholesterol 133 mg/dL (0-200); HDL Direct 49 mg/dL; Triglycerides 96 mg/dL (<150)
[2024-08-08 14:02] LABS: LDL Cholesterol Direct 57 mg/dL
[2024-08-08 14:22] LABS: Prostate Specific Antigen 3.1 ng/mL (< OR = 4.0)
== END 2024-08-08 12:59 | disposition home or self-care (01) ==
LOC: ANHLAB 12:59
PROVIDERS: PCP Nurse Practitioner Family; Visit Provider Nurse Practitioner Family
DX: Z00.00 Encounter for general adult medical examination without abnormal findings (principal); I10 Essential (primary) hypertension; H53.9 Unspecified visual disturbance; N18.9 Chronic kidney disease, unspecified; E87.6 Hypokalemia; R35.1 Nocturia; C43.59 Malignant melanoma of other part of trunk; C43.9 Malignant melanoma of skin, unspecified; C78.89 Secondary malignant neoplasm of other digestive organs; G89.29 Other chronic pain; F17.200 Nicotine dependence, unspecified, uncomplicated; Z76.89 Persons encountering health services in other specified circumstances
CPT/HCPCS: 36415; 80061; 84153

== ENCOUNTER 2024-08-21 13:43 | Emergency (ER) | payer OTHER, SELFPAY ==
--- NOTE | ~2024-08-21 | CT_ITS ---
EXAMINATION: CT knee LT wo con DATE: 08/21/2024 15:14 INDICATION: Trauma. Suspect internal degloving injury. TECHNIQUE: High resolution computed tomography (CT) of the left knee was performed without intravenou s contrast. Additional sagittal and coronal reconstructions were performed. Automated exposure contro l and iterative reconstruction technique were employed. The dose-length product was 733.99 mGy-cm. COMPARISON: None FINDINGS: Bone alignment is normal. No fracture. Joint spaces appear normal on nonweightbearing imaging with no osteophytosis. Left knee joint effusion. Small Bustos's cyst. There is mild fatty atrophy of the medi al head of the gastrocnemius which suggests sequela of chronic trauma or denervation. Soft tissues ar e otherwise unremarkable. No hematoma or other abnormal fluid collections. IMPRESSION: 1. Small Bustos's cyst. 2. Mild fatty atrophy of the medial head of the gastrocnemius which suggests sequela of old trauma or denervation. Reviewed, dictated and finalized at location A. IMPRESSION: 1. Small Bustos's cyst. 2. Mild fatty atrophy of the medial head of the gastrocnemius which suggests se quela of old trauma or denervation.
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
[2024-08-21 13:45] VITALS: BP 143/94; PULSE 110; RESP 16; TEMP 36.9; O2SAT 98
--- OUTSIDE RECORDS SUMMARY | 2024-08-21 13:46 | XMS_ITS | Encounter Summary ---
Author Organization [facility] [employer] [facility] Address [address] [place] [address] Care Team Providers Care Superintendent Quarry Name Role Phone Provider, Abstract Primary Care Provider Unavail able Reason for Visit * Reason Comments Medication Refill Encounter Details Date Type Department Care Team (Late Contact Info) Description 03/08/2021 Refill [facility] Oncology and Hematology - [place] [address] [place] [address] [facility] [address] [place] [address] Jv Cisneros MD [address] [facility] [address] [place] [address] Malignant melanoma of right lower [...] COVID-19? No / Unsure 03/04/2021 10:37 AM BURR GRINDER documented as of this encounter Plan of Treatment Upcoming Encounters Date Type Department Care Team (Late st Contact Info) Description 09/02/2024 1:00 PM CDT Office Visit [facility] Oncology and Hematology - [place] [address] [place] [address] Jv Cisneros MD [address] [facility] [address] [place] [address] documented as of this encounter Visit Diagnoses Diagnosis Malignant melanoma of right lower extremity (CMS/HCC) documented in this encounter Care Teams Superintendent Quarry Relationship Specialty Start Date End Date Provider, Abstract NO ADDRESS ON FILE PCP - General 05/29/20 documented as of this encounter
--- OUTSIDE RECORDS SUMMARY | 2024-08-21 13:46 | XMS_ITS | Clinical Summary ---
Author Organization [facility] Address [address] [place] [address] Care Team Providers Care Watcher [employer] Name Role Phone Provider, Abstract Primary Care Provider Unavail able Allergies Active Allergy Reactions Criticality Noted Date Comments Codeine Dizziness,Delirium Medium 05/29/2020 Medications naloxone (NARCAN) 4 mg/spray [place], Non-Aerosol EMERGENCY USE ONLY: Administer 1 spray [...] Encounters Date Type Department Care Team Description 08/12/2024 Abstract [facility] Oncology and Hematology [facility] [address] [place] [address] Jv Cisneros MD 08/06/2024 External Device Data STL ABSTRACTION Provider, Abstract 08/06/2024 Refill [facility] Oncology and Hematology [facility] [address] [place] [address] Jv Cisneros MD Malignant melanoma of right [...] Description 09/02/2024 1:00 PM CDT Office Visit [facility] Oncology and Hematology - [place] [address] [facility] [address] [place] [address] Jv Cisneros MD [address] [facility] [address] [place] [address] Health Maintenance Due Date Last Done Comments Pre-Diabetes and Diabetes Screening 1980 DTAP/TDAP/TD VACCINES (1 - Tdap) 12/09/1999 HEPATITIS B VACCINES (1 of 3 - 19+ 3-dose series) 12/09/1999 INFLUENZA VACCINE (#1) 2024 HPV VACCINES Aged Out No longer eligi ble based on patient's age to complete this topic Insurance [facility] PLAN MEDICAID RX [employer] Commercial Care Teams Watcher [employer] Relationship Specialty Start Date End Date Provider, Abstract NO ADDRESS ON FILE PCP - General 05/29/20
[2024-08-21 13:55] VITALS: BP 135/86; PULSE 108; RESP 16; TEMP 37.2; O2SAT 98
--- OUTSIDE RECORDS SUMMARY | 2024-08-21 14:26 | XMS_ITS | Clinical Summary ---
Author Organization [facility] Address [address] [place] [address] Care Team Providers Care Lower School Music Teacher Name Role Phone Provider, Abstract Primary Care Provider Unavail able Allergies Active Allergy Reactions Criticality Noted Date Comments Codeine Dizziness,Delirium Medium 05/29/2020 Medications naloxone (NARCAN) 4 mg/spray [place], Non-Aerosol EMERGENCY USE ONLY: Administer 1 spray [...] Type Department Care Team Description 08/12/2024 Abstract [facility] Oncology and Hematology [facility] [address] [place] [address] Jv Cisneros MD 08/06/2024 External Device Data STL ABSTRACTION Provider, Abstract 08/06/2024 Refill [facility] Oncology and Hematology [facility] [address] [place] [address] Jv Cisneros MD Malignant melanoma of right [...] Description 09/02/2024 1:00 PM CDT Office Visit [facility] Oncology and Hematology - [place] [address] [facility] [address] [place] [address] Jv Cisneros MD [address] [facility] [address] [place] [address] Health Maintenance Due Date Last Done Comments Pre-Diabetes and Diabetes Screening 1980 DTAP/TDAP/TD VACCINES (1 - Tdap) 12/09/1999 HEPATITIS B VACCINES (1 of 3 - 19+ 3-dose series) 12/09/1999 INFLUENZA VACCINE (#1) 2024 HPV VACCINES Aged Out No longer eligi ble based on patient's age to complete this topic Insurance [facility] PLAN MEDICAID RX [employer] Commercial Care Teams Lower School Music Teacher Relationship Specialty Start Date End Date Provider, Abstract NO ADDRESS ON FILE PCP - General 05/29/20
--- OUTSIDE RECORDS SUMMARY | 2024-08-21 14:26 | XMS_ITS | Encounter Summary ---
Author Organization [facility] [employer] [facility] Address [address] [place] [address] Care Team Providers Care Manager Foreign Name Role Phone Provider, Abstract Primary Care Provider Unavail able Reason for Visit * Reason Comments Medication Refill Encounter Details Date Type Department Care Team (Late Contact Info) Description 03/08/2021 Refill [facility] Oncology and Hematology - [place] [address] [place] [address] [facility] 200 [place] [address] Jv Cisneros MD [address] [facility] [address] [place] [address] Malignant melanoma of right lower [...] COVID-19? No / Unsure 03/04/2021 10:37 AM STUNT DRIVER documented as of this encounter Plan of Treatment Upcoming Encounters Date Type Department Care Team (Late st Contact Info) Description 09/02/2024 1:00 PM CDT Office Visit [facility] Oncology and Hematology - [place] [address] [place] [address] Jv Cisneros MD [address] [facility] [address] [place] [address] documented as of this encounter Visit Diagnoses Diagnosis Malignant melanoma of right lower extremity (CMS/HCC) documented in this encounter Care Teams Manager Foreign Relationship Specialty Start Date End Date Provider, Abstract NO ADDRESS ON FILE PCP - General 05/29/20 documented as of this encounter
[2024-08-21] MEDS: LACTATED RINGERS 1,000 ML 999 ML IV CONT (14:43)
[2024-08-21] MEDS: HYDROmorphone HCL INJ (*CRX) 2 MG/ML VIAL 1 MG IV PUSH (14:44)
[2024-08-21 14:45] VITALS: BP 127/83; PULSE 87; RESP 17; O2SAT 98
[2024-08-21 14:46] LABS: Hematocrit 38.8 % (42.0-52.0); Hemoglobin 12.6 g/dL (14.0-18.0); Immature Granulocyte Percent A 0.4 % (0-0.5); Lymphocytes Absolute Auto 0.82 K/mm3 (0.9-3.2); Mean Corpuscular HGB Conc 32.5 g/dl (32-36); Mean Corpuscular Hemoglobin 29.4 pg (26-34); Mean Corpuscular Volume 90.7 fl (80-100); Nucleated Red Blood Cells Absolute Auto 0.000 K/mm3 (0.0-0.012); Nucleated Red Blood Cells Perc 0.0 % (0.0-0.2); Platelet Count Result 226 k/mm3 (150-375); Red Blood Count 4.28 M/mm3 (4.6-6.20); White Blood Count 7.1 K/mm3 (4.5-10.0)
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
[2024-08-21 14:56] LABS: Alanine Aminotransferase 15 U/L (6-50); Albumin Level 3.7 g/dL (3.5-5.1); Alkaline Phosphatase 69 U/L (38-126); Anion Gap 7 mmol/L (4-12); Aspartate Amino Transferase 29 U/L (17-59); Bilirubin,Total 0.4 mg/dL (0.2-1.3); Blood Urea Nitrogen 16 mg/dL (9-20); Calcium 8.9 mg/dL (8.4-10.2); Carbon Dioxide 22 mmol/L (22-30); Chloride 110 mmol/L (98-107); Estimated CRCL calculation 55 ml/min; Estimated Glomerular Filt Rate 48; Glucose 81 mg/dL (65-110); Potassium 3.6 mmol/L (3.4-5.0); Sodium 139 mmol/L (137-145); Total Protein 6.9 g/dL (6.3-8.2)
[2024-08-21 14:57] LABS: INR 0.9; Partial Thromboplastin Time 30.9 Seconds (22.3-36.8); Prothrombin Time 12.8 Seconds (11.1-14.7)
[2024-08-21 15:48] VITALS: BP 124/78; PULSE 82; RESP 17; O2SAT 98
[2024-08-21 17:24] VITALS: BP 146/91; PULSE 82; RESP 16; O2SAT 99
[2024-08-21] MEDS: HYDROcodone/acetaminophen (*CRX) 5-325 MG TABLET 1 TAB PO (17:34)
[2024-08-21 17:38] VITALS: BP 133/86; PULSE 87; RESP 14; TEMP 36.4; O2SAT 99
== END 2024-08-21 17:40 | disposition home or self-care (01) ==
PROVIDERS: Emergency Provider Student in an Organized Health Care Education/Training Program; PCP Nurse Practitioner Family
DX: S70.12XA Contusion of left thigh, initial encounter (principal); R07.89 Other chest pain; Z85.820 Personal history of malignant melanoma of skin; Z85.038 Personal history of other malignant neoplasm of large intestine; Z90.49 Acquired absence of other specified parts of digestive tract; F17.210 Nicotine dependence, cigarettes, uncomplicated; Z79.899 Other long term (current) drug therapy; V28.41XA Electric (assisted) bicycle driver injured in noncollision transport accident in traffic accident, initial encounter; N20.0 Calculus of kidney; M71.22 Synovial cyst of popliteal space [Baker], left knee
CPT/HCPCS: 36415; 71260; 72129; 72132; 73700; 74177; 80053; 85025; 85610; 85730; 86850; 86900; 86901; 96361; 96374; 99284; A9270; J1171; J7120; Q9967

== ENCOUNTER 2024-09-05 11:12 | Outpatient (CLI) | payer OTHER, SELFPAY ==
--- NOTE | ~2024-09-05 | XR_ITS ---
Right Hand Technique: PA and lateral views were obtained. Clinical History: Pain Findings: No acute fracture or dislocation is seen. Osseous alignment is anatomic. Joint spaces are p reserved. Soft tissues are unremarkable. Impression: Unremarkable right hand. Reviewed, dictated and finalized at location M. Impression: Unremarkable right hand.
--- NOTE | ~2024-09-05 | XR_ITS ---
Right foot Technique: AP and lateral views were obtained. Clinical History: Pain Findings: No acute fracture or dislocation is seen. Osseous alignment is anatomic. Joint spaces are p reserved without erosive or degenerative change. Soft tissues are unremarkable. Impression: Unremarkable right foot radiographs. Reviewed, dictated and finalized at location . Impression: Unremarkable right foot radiographs.
--- NOTE | ~2024-09-05 | XR_ITS ---
Left Knee Technique: AP and lateral views were obtained. Clinical History: Pain Findings: No fracture or dislocation is seen. Osseous alignment is anatomic. Joint spaces are preserv ed without degenerative or erosive change. Soft tissues are unremarkable. No joint effusion is seen. Impression: Unremarkable left knee radiographs. Reviewed, dictated and finalized at location . Impression: Unremarkable left knee radiographs.
--- NOTE | ~2024-09-05 | XR_ITS ---
Left foot Technique: AP and lateral views were obtained. Clinical History: Pain Findings: No acute fracture or dislocation is seen. Osseous alignment is anatomic. Joint spaces are p reserved without erosive or degenerative change. Soft tissues are unremarkable. Impression: Unremarkable left foot radiographs. Reviewed, dictated and finalized at location . Impression: Unremarkable left foot radiographs.
--- NOTE | ~2024-09-05 | XR_ITS ---
Left Hand Technique: PA and lateral views were obtained. Clinical History: Pain Findings: No acute fracture or dislocation is seen. Osseous alignment is anatomic. Joint spaces are p reserved. Soft tissues are unremarkable. Impression: Unremarkable left hand. Reviewed, dictated and finalized at location M. Impression: Unremarkable left hand.
--- OUTSIDE RECORDS SUMMARY | 2024-09-05 11:28 | XMS_ITS | Encounter Summary ---
Author Organization [facility] Address [address] [place] [address] Care Team Providers Care Card Feeder Name Role Phone Provider, Abstract Primary Care Provider Unavail able Encounter Details Date Type Department Care Team (Late st Contact Info) Description 09/03/2024 External Device Data STL ABSTRACTION Provider, Abstract [...] Care Team (Late st Contact Info) Description 12/05/2024 3:30 PM CDT Office Visit [facility] Oncology and Hematology - [place] [address] [facility] [address] [place] [address] Jv Cisneros MD [address] [facility] [address] [place] [address] documented as of this encounter Visit Diagnoses Not on filedocumented in this encounter Care Teams Card Feeder Relationship Specialty Start Date End Date Provider, Abstract NO ADDRESS ON FILE PCP - General 05/29/20 documented as of this encounter
--- OUTSIDE RECORDS SUMMARY | 2024-09-05 11:28 | XMS_ITS | Encounter Summary ---
Author Organization [facility] Address [address] [place] [address] Care Team Providers Care Senior Research Engineer Name Role Phone Provider, Abstract Primary Care Provider Unavail able Reason for Visit * Reason Comments Medication Refill Encounter Details Date Type Department Care Team (Late Contact Info) Description 03/08/2021 Refill [facility] Oncology and Hematology - [place] [address] [place] [address] [facility] [address] [place] [address] Jv Cisneros MD [address] [facility] [address] [place] [address] Malignant melanoma of right lower [...] COVID-19? No / Unsure 03/04/2021 10:[address] RAILWAY LINE INSTALLER documented as of this encounter Plan of Treatment Upcoming Encounters Date Type Department Care Team (Late st Contact Info) Description 12/05/2024 3:30 PM CDT Office Visit [facility] Oncology and Hematology - [place] [address] [facility] [address] [place] [address] Jv Cisneros MD [address] [facility] [address] [place] [address] documented as of this encounter Visit Diagnoses Diagnosis Malignant melanoma of right lower extremity (CMS/HCC) documented in this encounter Care Teams Senior Research Engineer Relationship Specialty Start Date End Date Provider, Abstract NO ADDRESS ON FILE PCP - General 05/29/20 documented as of this encounter
--- OUTSIDE RECORDS SUMMARY | 2024-09-05 11:28 | XMS_ITS | Encounter Summary ---
Author Organization [facility] Address [address] [place] [address] Care Team Providers Care Machine Chain Maker Name Role Phone Provider, Abstract Primary Care Provider Unavail able Encounter Details Date Type Department Care Team (Late st Contact Info) Description 09/04/2024 External Device Data STL ABSTRACTION Provider, Abstract [...] Description 12/05/2024 3:30 PM CDT Office Visit [facility] Oncology and Hematology - [place] [address] [facility] [address] [place] [address] Jv Cisneros MD [address] [facility] [address] [place] [address] documented as of this encounter Visit Diagnoses Not on filedocumented in this encounter Care Teams Machine Chain Maker Relationship Specialty Start Date End Date Provider, Abstract NO ADDRESS ON FILE PCP - General 05/29/20 documented as of this encounter
--- OUTSIDE RECORDS SUMMARY | 2024-09-05 11:28 | XMS_ITS | Clinical Summary ---
Author Organization [facility] Address [address] [facility] [place] [address] Care Team Providers Care Structural Test Engineer Name Role Phone Provider, Abstract Primary Care Provider Unavail able Allergies Active Allergy Reactions Criticality Noted Date Comments Codeine Dizziness,Delirium Medium 05/29/2020 Medications naloxone (NARCAN) 4 mg/spray Mobile, Non-Aerosol EMERGENCY USE ONLY: Administer 1 spray [...] 60 Capsule 3 4 Active potassium CHLORIDE (K-DUR,KLOR-CON M20) 20 mEq Extended Release tablet Take 1 Tablet (20 mEq) by mouth daily. 60 Tablet 2 5 Active trametinib (Mekinist) 2 mg tabletIndicatio ns:Malignant melanoma of right lower extremity (CMS/HCC) take 1 tablet by mouth daily before breakfast 60 Tablet 3 5 Active Active Problems Problem Noted Date Diagnosed Date Malignant melanoma of right lower extremity 10/2020 Encounters Date Type Department Care Team Description 09/04/2024 External Device Data STL ABSTRACTION Provider, Abstract 09/03/2024 External Device Data STL ABSTRACTION Provider, Abstract 08/12/2024 Abstract [facility] Oncology and Hematology [facility] [place] [place] [address] [place] [address] Jv Cisneros MD 08/06/2024 External Device Data STL ABSTRACTION Provider, Abstract 08/06/2024 Refill [facility] Oncology and Hematology [facility] [place] [place] [address] [place] [address] Jv Cisneros MD Malignant melanoma of right [...] Description 12/05/2024 3:30 PM CDT Office Visit [facility] Oncology and Hematology - [place] [address] [facility] [address] [place] [address] Jv Cisneros MD [address] [facility] [address] [place] [address] Health Maintenance Due Date Last Done Comments Pre-Diabetes and Diabetes Screening 1980 HPV VACCINES (1 - Male 3-dose series) 12/09/1995 DTAP/TDAP/TD VACCINES (1 - Tdap) 12/09/1999 HEPATITIS B VACCINES (1 of 3 - 19+ 3-dose series) 11/20 Preventative Visit-Managed Medicaid 12/09/1999 INFLUENZA VACCINE (#1) 2024 Insurance [employer] MED[employer] Commercial Care Teams Structural Test Engineer Relationship Specialty Start Date End Date Provider, Abstract NO ADDRESS ON FILE PCP - General 05/29/20
== END 2024-09-05 11:13 | disposition home or self-care (01) ==
PROVIDERS: PCP Nurse Practitioner Family; Visit Provider Nurse Practitioner Family
DX: M25.50 Pain in unspecified joint (principal)
CPT/HCPCS: 73120; 73560; 73620

== ENCOUNTER 2024-12-03 09:45 | Outpatient (CLI) | payer OTHER, SELFPAY ==
[2024-12-03 10:37] LABS: CRP < 0.5 mg/dL (<1.0)
--- OUTSIDE RECORDS SUMMARY | 2024-12-03 11:06 | XMS_ITS | Encounter Summary ---
Author Organization [facility] ([facility])[3] [employer] [facility] Address [address] [place] [address] Care Team Providers Care Instrument Worker Name Role Phone Provider, Abstract Primary Care Provider Unavail able Reason for Visit * Reason Comments Medication Refill Encounter Details Date Type Department Care Team (Late Contact Info) Description 03/08/2021 Refill [facility] Oncology and Hematology - [place] [address] [place] [address] [facility] 200 [place] [address] Jv Cisneros MD [address] [facility] [address] [place] [address] Malignant melanoma of right lower [...] COVID-19? No / Unsure 03/04/2021 10:37 AM TUBE TELLER documented as of this encounter Plan of Treatment Upcoming Encounters Date Type Department Care Team (Late st Contact Info) Description 12/05/2024 3:30 PM CDT Office Visit [facility] Oncology and Hematology - [place] [address] [facility] [address] [place] [address] Jv Cisneros MD [address] [facility] [address] [place] [address] documented as of this encounter Visit Diagnoses Diagnosis Malignant melanoma of right lower extremity documented in this encounter Care Teams Instrument Worker Relationship Specialty Start Date End Date Provider, Abstract NO ADDRESS ON FILE PCP - General 05/29/20 documented as of this encounter
--- OUTSIDE RECORDS SUMMARY | 2024-12-03 11:06 | XMS_ITS | Clinical Summary ---
Author Organization [facility] Address [address] [place] [address] Care Team Providers Care Rotoformer Backtender Name Role Phone Provider, Abstract Primary Care Provider Unavail able Allergies Active Allergy Reactions Criticality Noted Date Comments Codeine Dizziness,Delirium Medium 05/29/2020 Medications naloxone (NARCAN) 4 mg/spray [place], Non-Aerosol EMERGENCY USE ONLY: Administer 1 spray (4 mg) in one nostril one time. May repeat in alternating nostrils every 2-3 min until responsive or EMS arrives. 2 Each 3 4 Active ibuprofen (MOTRIN) 600 mg tabletIndicatio ns:Malignant melanoma of right lower extremity Take 1 Tablet (600 mg) by mouth every 6 hours as needed for Pain, Mild. 90 Tablet 4 4 Active amLODIPine (NORVASC) 5 mg tablet Take 1 Tablet (5 mg) by mouth daily. 30 Tablet 4 Active oxyCODONE-aceta minophen (PERCOCET) 10-325 mg TabletIndicatio ns:Malignant melanoma of right lower extremity Take 1 Tablet by mouth every 6 hours as needed for Pain, Severe. Max Daily Amount: 4 Tablets 60 Tablet 4 Active ALPRAZolam (XANAX) 1 mg tabletIndicatio ns:Malignant melanoma of right lower extremity TAKE 1 TABLET(1 MG) BY MOUTH EVERY NIGHT NEEDED FOR ANXIETY 30 Tablet 4 Active dabrafenib (Tafinlar) 75 mg capsuleIndicati ons:Malignant melanoma of right lower extremity TAKE 2 CAPSULES BY MOUTH TWICE DAILY BEFORE MEALS 60 Capsule 3 4 Active potassium CHLORIDE (K-DUR,KLOR-CON M20) 20 mEq Extended Release tablet Take 1 Tablet (20 mEq) by mouth daily. 60 Tablet 2 5 Active trametinib (Mekinist) 2 mg tabletIndicatio ns:Malignant melanoma of right lower extremity take 1 tablet by mouth daily before breakfast 60 Tablet 3 5 Active Active Problems Problem Noted Date Diagnosed Date Malignant melanoma of right lower extremity 04/0 10/2020 Encounters Date Type Department Care Team Description 11/05/2024 External Device Data STL ABSTRACTION Provider, Abstract 10/22/2024 External Device Data STL ABSTRACTION Provider, Abstract 10/01/2024 External Device Data STL ABSTRACTION Provider, Abstract 09/16/2024 Abstract [facility] Oncology and Hematology [facility] [address] [address] Jv Cisneros MD 09/04/2024 External Device Data STL ABSTRACTION Provider, Abstract 09/04/2024 External Device Data STL ABSTRACTION Provider, [...] Description 12/05/2024 3:30 PM CDT Office Visit [facility] Oncology and Hematology - [place] [address] [facility] 200 [place] [address] Jv Cisneros MD [address] [facility] [address] [place] [address] Health Maintenance Due Date Last Done Comments Pre-Diabetes and Diabetes Screening 1980 DTAP/TDAP/TD VACCINES (1 - Tdap) 12/09/1999 HEPATITIS B VACCINES (1 of 3 - 19+ 3-dose series) 11/20 HPV VACCINES (1 - 3-dose SCDM series) 12/09/2007 INFLUENZA VACCINE (#1) 2024 Insurance [facility] MEDICAID RX [employer] Commercial Care Teams Rotoformer Backtender Relationship Specialty Start Date End Date Provider, Abstract NO ADDRESS ON FILE PCP - General 05/29/20
[2024-12-04 14:09] LABS: Anti-CCP Ab, IgG/IgA 4 units (0-19)
[2024-12-04 16:08] LABS: ANA by IFA Rfx Titer/Pattern Positive (.)
== END 2024-12-03 09:46 | disposition home or self-care (01) ==
PROVIDERS: PCP Nurse Practitioner Family; Visit Provider Nurse Practitioner Family
DX: M25.50 Pain in unspecified joint (principal); M06.9 Rheumatoid arthritis, unspecified
CPT/HCPCS: 36415; 85652; 86038; 86140; 86200; 86430

== ENCOUNTER 2024-12-18 09:56 | Outpatient (CLI) | payer OTHER, SELFPAY ==
--- NOTE | ~2024-12-18 | XR_ITS ---
EXAMINATION: XR elbow LT 2V, 12/18/2024 10:15 CDT HISTORY: M77.12 - Lateral epicondylitis, left elbow COMPARISON: No comparisons available. Findings: There is a remote appearing corticated fractures of the medial epicondyles, no acute fracture is identified. No significant degenerative changes. Soft tissues unremarkable. Impression: No acute fracture or malalignment. Reviewed, dictated and finalized at location P. Impression: No acute fracture or malalignment.
--- NOTE | ~2024-12-18 | CT_ITS ---
EXAMINATION: CT chest abdomen pelvis w con DATE: 12/18/2024 10:42 INDICATION: Malignant melanoma of right lower extremity. TECHNIQUE: Computed tomography (CT) of the chest, abdomen, and pelvis was performed with 100 mL Omnipaque 350 intravenous contrast. Automated exposure control and iterative reconstruction technique were employed. The dose-length product was 581.89 mGy-cm. COMPARISON: CT 08/21/24 FINDINGS: CHEST CT: The lungs demonstrate mild dependent atelectasis. No pleural effusion. The heart size is normal. No pericardial effusion. There is mild bilateral gynecomastia. There are no pathologically enlarged lymph nodes. There is a healing fracture of left third rib. ABDOMEN/PELVIS CT: The liver, gallbladder, spleen, pancreas, and adrenal glands are normal. There is cortical thinning of the kidneys. There are 4 stones in right kidney measuring up to 5 mm. There are 4 stones in left kidney measuring up to 5 mm. There are no dilated loops of bowel. There are no pathologically enlarged lymph nodes. There is no free intraperitoneal fluid. There is mild lumbar spondylosis. IMPRESSION: 1. No evidence of metastatic disease. Reviewed, dictated and finalized at location E.
[2024-12-18 10:35] LABS: Estimated Glomerular Filt Rate 41
--- OUTSIDE RECORDS SUMMARY | 2024-12-18 11:05 | XMS_ITS | Clinical Summary ---
Author Organization [facility] Address [address] [facility] [place] [address] Care Team Providers Care Property Claims Adjuster Name Role Phone Provider, Abstract Primary Care Provider Unavail able Allergies Active Allergy Reactions Criticality Noted Date Comments Codeine Dizziness,Delirium Medium 05/29/2020 Medications naloxone (NARCAN) 4 mg/spray [place], Non-Aerosol EMERGENCY USE ONLY: Administer 1 spray [...] Date Malignant melanoma of right lower extremity 040 10/2020 Encounters Date Type Department Care Team Description 12/05/2024 Orders Only [facility] Oncology and Hematology - [place] [address] [place] [address] Jv Cisneros MD Malignant melanoma of right lower extremity (Primary Dx) 11/05/2024 External Device Data STL ABSTRACTION Provider, [...] Care Team (Late st Contact Info) Description 12/26/2024 10:00 AM MEDICAL RECORDS RECEPTIONIST Office Visit [facility] Oncology and Hematology - [place] [address] [facility] 200 [place] [address] Jv Cisneros MD [address] [facility] [address] [place] [address] Health Maintenance Due Date Last Done Comments Pre-Diabetes and Diabetes Screening 1980 DTAP/TDAP/TD VACCINES (1 - Tdap) 12/09/1999 HEPATITIS B VACCINES (1 of 3 - 19+ 3-dose series) 11/20 HPV VACCINES (1 - 3-dose SCDM series) 12/09/2007 INFLUENZA VACCINE (#1) 2024 Insurance [facility] MEDICAID RX [employer] Commercial Care Teams Property Claims Adjuster Relationship Specialty Start Date End Date Provider, Abstract NO ADDRESS ON FILE PCP - General 05/29/20
--- OUTSIDE RECORDS SUMMARY | 2024-12-18 11:05 | XMS_ITS | Encounter Summary ---
Author Organization [facility] Address [address] [place] [address] Care Team Providers Care Service Station Attendant Name Role Phone Provider, Abstract Primary Care Provider Unavail able Reason for Visit * Reason Comments Medication Refill Encounter Details Date Type Department Care Team (Late Contact Info) Description 03/08/2021 Refill [facility] Oncology and Hematology - [place] [address] [place] [address] [facility] 200 [place] [address] Jv Cisneros MD [address] [facility] [address] [place] [address] Malignant melanoma of right lower [...] COVID-19? No / Unsure 03/04/2021 10:37 AM VICE PRESIDENT RESIDENTIAL SOLAR SALES documented as of this encounter Plan of Treatment Upcoming Encounters Date Type Department Care Team (Late st Contact Info) Description 12/26/2024 10:00 AM VICE PRESIDENT RESIDENTIAL SOLAR SALES Office Visit [facility] Oncology and Hematology - [place] [address] [facility] [address] [place] [address] Jv Cisneros MD [address] [facility] [address] [place] [address] documented as of this encounter Visit Diagnoses Diagnosis Malignant melanoma of right lower extremity documented in this encounter Care Teams Service Station Attendant Relationship Specialty Start Date End Date Provider, Abstract NO ADDRESS ON FILE PCP - General 05/29/20 documented as of this encounter
== END 2024-12-18 09:57 | disposition home or self-care (01) ==
PROVIDERS: PCP Nurse Practitioner Family; Visit Provider Internal Medicine Hematology & Oncology
DX: C43.71 Malignant melanoma of right lower limb, including hip (principal); M77.12 Lateral epicondylitis, left elbow
CPT/HCPCS: 71260; 73070; 74177; Q9967

== ENCOUNTER 2024-12-26 09:26 | Outpatient (CLI) | payer OTHER, SELFPAY ==
[2024-12-26 09:37] LABS: Hematocrit 45.4 % (42.0-52.0); Hemoglobin 14.9 g/dL (14.0-18.0); Immature Granulocyte Percent A 0.3 % (0-0.5); Lymphocytes Absolute Auto 1.37 K/mm3 (0.9-3.2); Mean Corpuscular HGB Conc 32.8 g/dl (32-36); Mean Corpuscular Hemoglobin 31.3 pg (26-34); Mean Corpuscular Volume 95.4 fl (80-100); Nucleated Red Blood Cells Absolute Auto 0.000 K/mm3 (0.0-0.012); Nucleated Red Blood Cells Perc 0.0 % (0.0-0.2); Platelet Count Result 198 k/mm3 (150-375); Red Blood Count 4.76 M/mm3 (4.6-6.20); White Blood Count 7.4 K/mm3 (4.5-10.0)
--- OUTSIDE RECORDS SUMMARY | 2024-12-26 10:00 | XMS_ITS | Encounter Summary ---
Author Organization [facility] [employer] [facility] Address [address] [place] [address] Care Team Providers Care Technical Developer Name Role Phone Provider, Abstract Primary Care Provider Unavail able Reason for Visit * Reason Comments Cancer Follow Up Encounter Details Date Type Department Care Team (Late st Contact Info) Description 12/26/2024 10:00 AM TELEPATHIST Office Visit [facility] Oncology and Hematology - [place] [address] [place] [address] [facility] 200 [place] [address] Jv Cisneros MD [address] [facility] [address] [place] [address] Malignant melanoma of right lower [...] Sign Reading Time Taken Comments Blood Pressure 149/95 12/26/2024 10:00 AM TELEPATHIST Pulse 90 12/26/2024 9:52 AM TELEPATHIST Temperature 36.5 C (97.7 F) 12/26/2024 9:52 AM TELEPATHIST Respiratory Rate 16 12/26/2024 9:52 AM TELEPATHIST Oxygen Saturation 96% 12/26/2024 9:52 AM TELEPATHIST Inhaled Oxygen Concentration - - Weight 74.1 kg (163 lb 6.4 oz) 12/26/2024 9:52 A M TELEPATHIST Height - - Body Mass Index 24.84 10/24/2023 10:32 AM CDT documented in this encounter Progress Notes * Jv Cisneros MD - 12/26/2024 10:03 AM CST HEMATOLOGY / ONCOLOGY PROGRESS NOTE Patient Identification: Name: Wang Marinelli Age: 44 y.o. Sex: male : 1980 DIAGNOSIS Metastatic [...] able to continue dabrafenib and trametinib in longterm. SUBJECTIVE Patient came to the office for follow-up visit. He ran out of dabrafenib and trametinib and discontinued about 6 months ago. Denies any nausea vomiting. No diarrhea and constipation. Complain of bilateral elbow arthralgia. No other new complaints. Review of system Constitutional: denies fevers, sweats, denies any tiredness and fatigue, 17 pound weight loss HEENT: denies sinus congestion,, complain of blurry vision Respiratory: denies cough, dyspnea, wheeze Cardiovascular: denies chest pain, exertional chest pressure/discomfort, nausea, syncope, shortnessof breath GI: denies constipation, dsyphagia, reflux symptoms, vomiting, melena, plaint of occasional abdominal pain. : denies dysuria, frequency, incontinence, urgency Integumentary system: no lymphadenopathy, sweats, flushing Musculoskeletal: denies: myalgia, complain of bilateral elbow arthralgia Neurological: denies blurry or disturbed vision, numbness/weakness, [...] normal, no murmur, click, rub or gallop, abdomen:mild right lower quadrant abdominal tenderness Bowel sounds normal. No masses, No organomegaly, [...] 227,000 creatinine 1.3 Labs from November 19 showed WBC 7.1 hemoglobin 13.9 platelet 268,000 [...] showed creatinine 1.5 potassium 3.0 hemoglobin 15.1 Labs from December 26 showed WBC 7.4 hemoglobin 14.9 platelet 198,000 creatinine 1.8 Assessment: Plan: Patient Active Problem List Diagnosis [...] dabrafenib and trametinib on August 15, 2020. Patient stopped taking dabrafenib and trametinib in July 2024 when he ran out of the prescription. Clinically he is asymptomatic. CT scan chest abdomen pelvis done on December 18, 2024 showed no evidence of relapse of malignancy. Labs stable. Will continue to observe and see him back in 4 months with repeat imaging studies in 8 months. Anemia. Resolved. Hypertension. Patient is taking antihypertensive and will be managed by the primary care physician. Anxiety and insomnia. He will not get any further refill on pain medication and Xanax. For up in 4 months 12/26/2024 Jv Cisneros MD PATHIST documented in this encounter Plan of Treatment Upcoming Encounters Date Type Department Care Team (Late st Contact Info) Description 05/01/2025 11:15 AM CDT Office Visit [facility] Oncology and Hematology - [place] [address] [facility] [address] [place] [address] Jv Cisneros MD [address] [facility] [address] [place] [phone] Scheduled Orders Name Type Priority Associated Diagnoses Orde r Schedule CBC WITH DIFFERENTIAL Lab Stat Malignant melanoma of right lower extremity (CMS/HCC) Expected: 04/17/2025, Expires: 12/26/2025 COMPREHENSIVE METABOLIC PANEL Lab Stat Malignant melanoma of right lower extremity (CMS/HCC) Expected: 04/17/2025, Expires: 12/26/2025 documented as of this encounter Visit Diagnoses Diagnosis Malignant melanoma of right lower extremity (CMS/HCC)- Primary documented in this encounter Care Teams Technical Developer Relationship Specialty Start Date End Date Provider, Abstract NO ADDRESS ON FILE PCP - General 05/29/20 documented as of this encounter
[2024-12-26 12:04] LABS: Alanine Aminotransferase 25 U/L (6-50); Albumin Level 4.1 g/dL (3.5-5.1); Alkaline Phosphatase 64 U/L (38-126); Anion Gap 8 mmol/L (4-12); Aspartate Amino Transferase 41 U/L (17-59); Bilirubin,Total 0.4 mg/dL (0.2-1.3); Blood Urea Nitrogen 23 mg/dL (9-20); Calcium 8.8 mg/dL (8.4-10.2); Carbon Dioxide 23 mmol/L (22-30); Chloride 108 mmol/L (98-107); Estimated Glomerular Filt Rate 47; Glucose 118 mg/dL (65-110); Potassium 4.4 mmol/L (3.4-5.0); Sodium 139 mmol/L (137-145); Total Protein 7.1 g/dL (6.3-8.2)
--- OUTSIDE RECORDS SUMMARY | 2024-12-26 17:59 | XMS_ITS | Clinical Summary ---
Author [facility] Address [address] [place] [address] Care Team Providers Care Irrigation Laborer Name Role Phone Provider, Abstract Primary Care Provider Unavail able Allergies Active Allergy Reactions Criticality Noted Date Comments Codeine Dizziness,Delirium Medium 05/29/2020 Medications naloxone (NARCAN) 4 mg/spray [place], Non-Aerosol EMERGENCY USE ONLY: Administer 1 spray [...] before breakfast 60 Tablet 3 5 Active lisinopriL (PRINIVIL) 10 mg tablet Take 1 Tablet by mouth daily. 5 Active Active Problems Problem Noted Date Diagnosed Date Malignant melanoma of right lower extremity 10/2020 Encounters Date Type Department Care Team Description 12/26/2024 10:00 AM LICENSED PSYCHOLOGIST Office Visit [facility] Oncology and Hematology [facility] [address] [place] [address] Jv Cisneros MD Malignant melanoma of right lower extremity (CMS/HCC) (Primary Dx) 12/24/2024 External Device Data STL ABSTRACTION Provider, Abstract 12/18/2024 External Device Data STL ABSTRACTION Provider, Abstract 12/18/2024 Orders Only [facility] Oncology and Hematology [facility] [address] [place] [address] Jv Cisneros MD 12/17/2024 External Device Data STL ABSTRACTION Provider, Abstract 12/05/2024 Orders Only [facility] Oncology and Hematology [place] [address] [place] [address] Jv Cisneros MD Malignant melanoma of right lower extremity (CMS/HCC) (Primary Dx) 11/05/2024 External Device Data STL [...] Comments Blood Pressure 149/95 12/26/2024 10:00 AM LICENSED PSYCHOLOGIST Pulse 90 12/26/2024 9:52 AM LICENSED PSYCHOLOGIST Temperature 36.5 C (97.7 F) 12/26/2024 9:52 AM LICENSED PSYCHOLOGIST Respiratory Rate 16 12/26/2024 9:52 AM LICENSED PSYCHOLOGIST Oxygen Saturation 96% 12/26/2024 9:52 AM LICENSED PSYCHOLOGIST Inhaled Oxygen Concentration - - Weight 74.1 kg (163 lb 6.4 oz) 12/26/2024 9:52 A M LICENSED PSYCHOLOGIST Height 172.7 cm (5' 8) 10/24/2023 10:32 AM CDT Body Mass Index 24.84 10/24/2023 10:32 AM CDT Plan of Treatment Upcoming Encounters Date Type Department Care Team (Late st Contact Info) Description 05/01/2025 11:15 AM CDT Office Visit [facility] Oncology and Hematology - [place] [address] [facility] 200 [place] [address] Jv Cisneros MD [address] [facility] [address] [place] [address] Health Maintenance Due Date Last Done Comments Pre-Diabetes and Diabetes Screening 1980 DTAP/TDAP/TD VACCINES (1 - Tdap) 12/09/1999 HEPATITIS B VACCINES (1 of 3 - 19+ 3-dose series) 11/20 Preventative Visit-Managed Medicaid 12/09/1999 HPV VACCINES (1 - 3-dose SCDM series) 12/09/2007 INFLUENZA VACCINE (#1) 2024 Procedures Procedure Name Priority Date/Time Associated Diagnosis Comments CT CHEST ABDOMEN PELVIS W CONT Routine 12/18/2024 12:03 PM CDT from Last 3 Months Results * CT CHEST ABDOMEN PELVIS W CONT (12/18/2024 12:03 PM CDT) Anatomical Region Laterality Modality Chest Computed Tomogra phy Jv Cisneros MD CT ORDERABLES Final Result from Last 3 Months Insurance [facility] MEDICAID RX [employer] Commercial Care Teams Irrigation Laborer Relationship Specialty Start Date End Date Provider, Abstract NO ADDRESS ON FILE PCP - General 05/29/20
--- OUTSIDE RECORDS SUMMARY | 2024-12-26 17:59 | XMS_ITS | Encounter Summary ---
Author Organization [facility] [employer] [facility] Address [address] [place] [address] Care Team Providers Care Rocket Motor Tester Name Role Phone Provider, Abstract Primary Care Provider Unavail able Reason for Visit * Reason Comments Medication Refill Encounter Details Date Type Department Care Team (Late Contact Info) Description 03/08/2021 Refill [facility] Oncology and Hematology - [place] [address] [place] [address] [facility] 200 [place] [address] Jv Cisneros MD [address] [facility] [address] [place] [address] Malignant melanoma of right lower [...] COVID-19? No / Unsure 03/04/2021 10:37 AM BELL ATTENDANT documented as of this encounter Plan of Treatment Upcoming Encounters Date Type Department Care Team (Late st Contact Info) Description 05/01/2025 11:15 AM CDT Office Visit [facility] Oncology and Hematology - [place] [address] [facility] [address] [place] [address] Jv Cisneros MD [address] [facility] [address] [place] [address] documented as of this encounter Visit Diagnoses Diagnosis Malignant melanoma of right lower extremity (CMS/HCC) documented in this encounter Care Teams Rocket Motor Tester Relationship Specialty Start Date End Date Provider, Abstract NO ADDRESS ON FILE PCP - General 05/29/20 documented as of this encounter
--- OUTSIDE RECORDS SUMMARY | 2024-12-26 17:59 | XMS_ITS | Encounter Summary ---
Author Organization [facility] Address [address] [place] [address] Care Team Providers Care Makeup Sales Consultant Name Role Phone Provider, Abstract Primary Care Provider Unavail able Encounter Details Date Type Department Care Team (Late st Contact Info) Description 12/24/2024 External Device Data STL ABSTRACTION Provider, [...] 05/01/2025 11:15 AM CDT Office Visit [facility] Oncology and Hematology - [place] [address] [facility] 200 [place] [address] Jv Cisneros MD [address] [facility] [address] [place] [address] documented as of this encounter Visit Diagnoses Not on filedocumented in this encounter Care Teams Makeup Sales Consultant Relationship Specialty Start Date End Date Provider, Abstract NO ADDRESS ON FILE PCP - General 05/29/20 documented as of this encounter
[2025-01-02 08:56] LABS: Blood Urea Nitrogen 24 mg/dL (8-26); Carbon Dioxide 23 mmol/L (22-30); Chloride 107 mmol/L (98-109); Estimated Glomerular Filt Rate 41; Potassium 4.3 mmol/L (3.5-4.9); Sodium 141 mmol/L (138-146)
[2025-01-02 08:57] LABS: Glucose 119 mg/dL (70-105); Ionized Calcium (POC) 1.15 mmol/L (1.11-1.31)
== END 2024-12-26 09:27 | disposition home or self-care (01) ==
LOC: ANHLAB 09:27
PROVIDERS: PCP Nurse Practitioner Family; Visit Provider Internal Medicine Hematology & Oncology
DX: C43.71 Malignant melanoma of right lower limb, including hip (principal)
CPT/HCPCS: 36415; 80047; 80053; 85025

== ENCOUNTER 2025-02-12 16:37 | Emergency (ER) | payer OTHER, SELFPAY ==
--- OUTSIDE RECORDS SUMMARY | 2025-02-12 16:39 | XMS_ITS | Encounter Summary ---
Author Organization [facility] [employer] [facility] Address [address] [place] [address] Care Team Providers Care Product Transfer Pumper Name Role Phone Provider, Abstract Primary Care Provider Unavail able Reason for Visit * Reason Comments Medication Refill Encounter Details Date Type Department Care Team (Late Contact Info) Description 03/08/2021 Refill [facility] Oncology and Hematology - [place] [address] [facility] 200 [place] [address] Jv Cisneros MD [address] [facility] [address] [place] [address] Malignant melanoma of right lower [...] COVID-19? No / Unsure 03/04/2021 10:37 AM DRESSMAKING TEACHER documented as of this encounter Plan of Treatment Upcoming Encounters Date Type Department Care Team (Late st Contact Info) Description 05/01/2025 11:15 AM CDT Office Visit [facility] Oncology and Hematology - [place] [address] [facility] [address] [place] [address] Jv Cisneros MD [address] [facility] [address] [place] [address] documented as of this encounter Visit Diagnoses Diagnosis Malignant melanoma of right lower extremity (CMS/HCC) documented in this encounter Care Teams Product Transfer Pumper Relationship Specialty Start Date End Date Provider, Abstract NO ADDRESS ON FILE PCP - General 05/29/20 documented as of this encounter
[2025-02-12 17:33] VITALS: BP 169/99; PULSE 93; RESP 18; TEMP 36.5; O2SAT 99
--- NOTE | 2025-02-12 17:36 | ED_ITS ---
HPI - URI/Sore Throat General Chief Complaint: Upper Respiratory Infection Stated Complaint: cough, cold symptoms Time Seen by Provider: 02/12/25 17:36 Source: patient Mode of arrival: ambulatory Limitations: no limitations History of Present Illness HPI Narrative: Patient is a 44 y/o male who presents the ED with report of upper respiratory symptoms. Patient reports having dry cough, congestion, rhinorrhea, sore throat, ear congestion for the past 2 days. Has taken sudafed, honey, and dayquil for sx's. Denies known fevers. States several people at his work place have been sick with similar symptoms. Related Data Home Medications ?Medication ?Instructions ?Recorded ?Confirmed ?Last Taken ?Type dabrafenib 75 mg capsule (Tafinlar) 75 mg PO 11/24/21 12/03/24 11/23/21 History trametinib 2 mg tablet (Mekinist) mg PO 08/01/2412/03 Unknown History Allergies Allergy/AdvReac Type Severity Reaction Status Date / Time codeine AdvReac Intermediate Nausea and Verified 02/12/25 17:34 Vomiting,DIZZY Review of Systems Review of Systems: All systems reviewed & are unremarkable except as noted in HPI. 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 of buttock Polysubstance (excluding opioids) dependence Surgical History Surgical History H/O right hemicolectomy 07/07/[address] Charles - for removal of metastatic mass to transverse colon with suspected microperforation History of melanoma excision Incisional biopsy right buttock 05/21/20 Wide excision right gluteal melanoma 13cm 06/05/20 History of colonoscopy History of forearm fracture with repair an reconstruction Family History Family History Father Heart attack Cancer Alcoholism Depression Anxiety Hypertension Cerebrovascular accident Mother CKD (chronic kidney disease) Heart attack Diabetes mellitus Depression Asthma Hypertension Cerebrovascular accident Grandparent Diabetes mellitus Heart disease Hypertension Cerebrovascular accident Colon cancer Asthma Alcoholism Social History Social History Smoking packs per day: 1 Smoking cigarettes per day: 20.0 Years smoked: 15 Smoking pack-years: 15.00 Smoking status: Current every day smoker Tobacco type: cigarettes Second hand tobacco smoke exposure: Yes Alcohol intake: former Drinks per week: 42 Alcohol use details: PT STATES HE QUIT DRINKING 3 WEEKS AGO Substance use: current Substance use type: marijuana Other substance usage details: every day Last use: 07/06/20 Living arrangements: with friend(s) Occupation/Education: unemployed Gender identity (if verbalized by the patient): Male Spiritual care concerns: No Exam Narrative: GENERAL: Well appearing, well-nourished, non-toxic, in no acute distress. HEAD: Normocephalic, atraumatic. RESPIRATORY: Airway patent, respirations nonlabored. Clear to auscultation bilaterally, no rales, rhonchi, wheezing. CARDIOVASCULAR: Regular rate and rhythm MUSCULOSKELETAL: Moves all extremities. No gross deformities. SKIN: Warm, dry, normal color. NEURO: A&O X3. Speech clear. Steady gait. No ataxic movements. PSYCHIATRIC: Appropriate mood and affect. Normal interaction. Course Vital Signs Vital signs: Vital Signs Temperature 97.7 F 02/12/25 17:33 Pulse Rate 93 02/12/25 17:33 Respiratory Rate 18 02/12/25 17:33 Blood Pressure 169/99 H 02/12/25 17:33 Pulse Oximetry 99 02/12/25 17:33 Oxygen Delivery Room Air 02/12/25 17:33 Temperature 97.7 F 02/12/25 17:33 Pulse Rate 93 02/12/25 17:33 Respiratory Rate 18 02/12/25 17:33 Blood Pressure 169/99 H 02/12/25 17:33 Pulse Oximetry 99 02/12/25 17:33 Oxygen Delivery Room Air 02/12/25 17:33 [facility] MDM Narrative Medical decision making narrative: Patient presented to ED with 2 day history of URI symptoms. Tested for COVID, influenza, RSV. Patient requesting to be discharged. States will look up his results on the [employer] portal. Advised antibiotics not indicated at this time. Vital signs are stable, no evidence of systemic infection to suggest further labs or imaging needed at this time. Discussed [id number] therapies to try for likely viral URI. Given work note. Given return precautions. Discharged in stable condition. Differential Diagnosis Differential Diagnosis: URI, COVID, influenza, RSV Medical Records I have reviewed the following patient records and this information was taken into consideration when formulating the assessment and plan.: previous labs, previous ER visits, previous hospitalizations and previous clinic visits Lab Data MDM Lab Attestation statement: I personally reviewed the patient's lab results. Labs: Lab Results 02/12/25 Range/Units 17:36 Influenza A (RT-PCR) Pending Influenza B (RT-PCR) Pending RSV (RT-PCR) Pending SARS-CoV-2 RNA (RT-PCR) Pending Discharge Plan Discharge Clinical Impression: Upper respiratory infection Qualifiers: URI type: unspecified URI Qualified Code(s): J06.9 - Acute upper respiratory infection, unspecified Patient Disposition: Home Condition: Stable Instructions: Antibiotic Form, Upper Respiratory Infection (ED), Viral Syndrome (ED), Cold Symptoms (ED) Additional Instructions: You were tested for COVID, influenza, RSV. Utilize the [employer] system to look up your results. Stay well-hydrated at home. Utilize Tessalon Perles as needed for cough. Recommend Tylenol and Ibuprofen for discomfort and/or fevers. Recommend bfjq-[id number] cough and cold medicines for symptom relief, Delsym, Mucinex, DayQuil, NyQuil, Sudafed, Robitussin, TheraFlu. Follow with primary care doctor upon resolution of symptoms. Return to the ED if you experience chest pain, difficulty breathing, unable to keep down food or drink, severe pain, or any other symptoms of concern. Patient Language: Welsh Prescriptions: New benzonatate 200 mg capsule 200 mg PO TID PRN (Reason: cough) Qty: 15 0RF No Action hydroxyzine HCl 25 mg tablet 25 mg PO .COMPLEX PRN (Reason: sleep) Qty: 60 0RF Rx Instructions: take 1-2 tablets within 30-60 minutes of bed time as needed lidocaine 5 % adhesive patch,medicated 1 patch topical DAILY Qty: 15 0RF Rx Instructions: leave on most painful area for up to 12 hrs lisinopril 10 mg tablet 10 mg PO DAILY Qty: 90 1RF meloxicam 15 mg tablet 15 mg PO DAILY Qty: 90 1RF hydrocortisone acetate 30 mg suppository 30 mg RECTAL BID Qty: 12 0RF Mekinist 2 mg tablet PO Tafinlar 75 mg capsule 75 mg PO hydrocortisone 2.5 % cream with perineal applicator 1 applic RECTAL BID Qty: 30 0RF Follow-up/Referrals: Anai Neumann APRN [Primary Care Provider, Internal Medicine] Stand Alone Forms: Work/School Release IP Time of Disposition: 17:37
[2025-02-12 17:47] VITALS: O2SAT 99
--- OUTSIDE RECORDS SUMMARY | 2025-02-12 17:55 | XMS_ITS | Encounter Summary ---
Author Organization [facility] [employer] [facility] Address [address] [place] [address] Care Team Providers Care Wad Impregnator Name Role Phone Provider, Abstract Primary Care Provider Unavail able Reason for Visit * Reason Comments Medication Refill Encounter Details Date Type Department Care Team (Late Contact Info) Description 03/08/2021 Refill [facility] Oncology and Hematology - [place] [address] [facility] [place] [address] Jv Cisneros MD [address] [facility] [address] [place] [address] Malignant melanoma of right lower [...] COVID-19? No / Unsure 03/04/2021 10:37 AM OCCUPATIONAL PHYSICIAN documented as of this encounter Plan of Treatment Upcoming Encounters Date Type Department Care Team (Late st Contact Info) Description 05/01/2025 11:15 AM CDT Office Visit [facility] Oncology and Hematology - Artemio [address] [place] [address] Jv Cisneros MD [address] [facility] [address] [place] [address] documented as of this encounter Visit Diagnoses Diagnosis Malignant melanoma of right lower extremity (CMS/HCC) documented in this encounter Care Teams Wad Impregnator Relationship Specialty Start Date End Date Provider, Abstract NO ADDRESS ON FILE PCP - General 05/29/20 documented as of this encounter
[2025-02-12 18:26] LABS: Influenza A QL RT-PCR Negative (Negative); Influenza B QL RT-PCR Negative (Negative); RSV RNA, RT-PCR Negative (Negative); SARS-CoV-2 RNA PCR Negative (Negative)
== END 2025-02-12 17:59 | disposition home or self-care (01) ==
LOC: ANHED 17:54
PROVIDERS: Emergency Provider Physician Assistant; PCP Nurse Practitioner Family
DX: J06.9 Acute upper respiratory infection, unspecified (principal); Z20.822 Contact with and (suspected) exposure to COVID-19; F17.210 Nicotine dependence, cigarettes, uncomplicated; N18.9 Chronic kidney disease, unspecified; Z85.820 Personal history of malignant melanoma of skin
CPT/HCPCS: 87637; 99283